=== PATIENT | female | born 1940 | race Caucasian/White ===

== ENCOUNTER → 2016-12-20 | Outpatient (CLI) | payer OTHER ==
[~2016-12-20] MED LIST: ACET-1256 PO; CHOL100010 PO; CHOL4POW11 PO; CLOP1TAB15 PO; ESCI10TA17 PO; GLUC10007 PO; GLYB5TAB8 PO; HYDR25TA4 PO; IMD/2 PO; INSU1.2I SC; LISI-729 PO; LISI5TAB PO; LOPE-5 PO; METF1000 PO; METF1TAB53 PO; MULT-506 PO; MULTTAB58 PO; NVLGI/PEN SC; NYST1POW7 TOP; NYST80OI TOP; NYSTOIN TOP; POLY335019 PO; POTA10CA28 PO; PSYL0.524 PO; SIME80CH PO; SIMV20TA2 PO; SIMV20TA5 PO; TRIA0.1C20 TOP; TYLOTC500 PO; [UNRECOGNIZED DRUG - CODE] PO
[2016-12-20 18:19] LABS: BLOOD UREA NITROGEN 9 mg/dl (7-18); BUN/CREATININE RATIO 9.6 (10-20); CALCIUM 9.2 mg/dl (8.5-10.1); CARBON DIOXIDE 26 mmol/L (21-32); CHLORIDE 101 mmol/L (98-107); CREATININE 0.89 mg/dl (0.60-1.20); GLUCOSE 378 mg/dl (70-99); POTASSIUM 3.5 mmol/L (3.5-5.1); SODIUM 138 mmol/L (136-145)
[2016-12-20 18:20] LABS: ALKALINE PHOSPHATASE 119 U/L (45-117); ALT/SGPT 48 U/L (12-78); AST/SGOT 42 U/L (15-37)
[2016-12-20 18:33] LABS: BETA-HYDROXYBUTYRATE 1.59 mg/dL (0.2-2.81)
[2016-12-21 06:14] LABS: ESTIMATED AVERAGE GLUCOSE 272 mg/dl; HA1C FLAG Normal (Normal)
== END | disposition home or self-care (01) ==
LOC: C.LABPVFM 13:24
PROVIDERS: ATTEND Nurse Practitioner
DX: R93.2 Abnormal findings on diagnostic imaging of liver and biliary tract (principal); E11.65 Type 2 diabetes mellitus with hyperglycemia

== ENCOUNTER → 2017-01-14 | Outpatient (CLI) | payer OTHER | END | disposition home or self-care (01) | LOC: C.PAPS 08:25 | PROVIDERS: ATTEND Obstetrics & Gynecology | DX: Z08 Encounter for follow-up examination after completed treatment for malignant neoplasm (principal) ==

== ENCOUNTER → 2017-01-28 | Day surgery (SDC) | payer OTHER ==
[2017-01-20 12:41] VITALS: Ht 148.6 cm; Wt 68.2 kg
[~2017-01-28] VITALS: Ht 148.6 cm; Wt 68.2 kg
[~2017-01-28] MED LIST changes: -GLUC10007 PO; -GLYB5TAB8 PO; -LISI-729 PO; -LOPE-5 PO; -METF1000 PO; -MULT-506 PO; -NYST1POW7 TOP; -NYSTOIN TOP; -PSYL0.524 PO; -SIMV20TA5 PO; -TRIA0.1C20 TOP; -TYLOTC500 PO
[2017-01-28 15:15] VITALS: BP 159/77; PULSE 65; TEMP 36.5; O2SAT 96
--- NOTE | 2017-02-06 12:56 | Procedure Note ---
Breath Hydrogen Test Interpretation Hydrogen Breath Test 10 gm lactulose time Hydrogen level CO2 0 5 3.2 20 7 3.6 40 20 3.7 60 21 4 80 43 3.5 100 98 3.7 120 78 3.3 140 61 3.3 160 121 3.5 Interpretation: Patient appears to have a positive hydrogen breath test. Of note there is a double peak which may represent colonic bharat as opposed to small bowel pathology.
== END | disposition home or self-care (01) ==
LOC: C.GI 11:46
PROVIDERS: ATTEND Internal Medicine
DX: R19.7 Diarrhea, unspecified (principal)

== ENCOUNTER → 2017-02-12 | Outpatient (CLI) | payer OTHER ==
[~2017-02-12] MED LIST changes: -CHOL4POW11 PO
--- NOTE | 2017-02-12 15:24 | DIAGNOSTIC IMAGING REPORT ---
LEFT FOOT 3 VIEWS CLINICAL HISTORY: Left foot pain. FINDINGS: 3 views of the left foot are obtained. No prior studies are available for comparison at the time of dictation. The skeletal structures are osteopenic. No fracture is seen. Mild arthritic change is seen at the first metatarsophalangeal joint. Moderate arthritic change is present at the second and third tarsometatarsal joints with significant bony sclerosis. There is no radiographic evidence of Lisfranc injury. Degenerative spurring is noted along the dorsal aspect of the tarsal bones. There are large dorsal and plantar calcaneal enthesophytes. Mild soft tissue swelling is noted along the dorsal aspect of the foot. IMPRESSION: 1. Soft tissue swelling with no radiographic evidence of fracture. 2. Arthritic change as above, greatest at the second and third tarsometatarsal joints. 3. Large heel spurs. Electronically signed by: Brody Aguilera M.D. 02/12/2017 3:22 PM Dictated Date/Time: 02/12/2017 3:20 PM
== END | disposition home or self-care (01) ==
LOC: C.RADPV 15:01
PROVIDERS: ATTEND Family Medicine
DX: M77.32 Calcaneal spur, left foot (principal); M79.89 Other specified soft tissue disorders

== ENCOUNTER → 2017-02-14 | Outpatient (CLI) | payer OTHER | END | disposition home or self-care (01) | LOC: C.LABPVFM 12:10 | PROVIDERS: ATTEND Nurse Practitioner | DX: E04.1 Nontoxic single thyroid nodule (principal) ==

== ENCOUNTER → 2017-02-19 | Outpatient (CLI) | payer OTHER ==
--- NOTE | 2017-02-19 11:52 | DIAGNOSTIC IMAGING REPORT ---
THYROID ULTRASOUND CLINICAL HISTORY: Solitary thyroid nodule. COMPARISON STUDY: CT July 06, 2017. TECHNIQUE: Sonography of the thyroid gland was performed. FINDINGS: The right thyroid lobe measures 3.1 x 2.1 x 2.4 cm and the left lobe measures 3.7 x 1 x 1 cm. There are several thyroid nodules, the largest of which is a 2.3 x 1.9 x 2 cm solid echogenic right lobe nodule. None of these nodules have suspicious imaging characteristics. The largest left lobe nodule measures 1.1 x 0.6 x 0.5 cm. IMPRESSION: Multinodular thyroid gland, including a 2.3 cm right lobe nodule. The sonographic appearance is nonspecific but none of these nodules have suspicious imaging characteristics. Electronically signed by: Tho Osullivan M.D. 02/19/2017 11:51 AM Dictated Date/Time: 02/19/2017 11:49 AM
== END | disposition home or self-care (01) ==
LOC: C.ULTR 11:18
PROVIDERS: ATTEND Nurse Practitioner
DX: E04.1 Nontoxic single thyroid nodule (principal)

== ENCOUNTER → 2017-03-03 | Outpatient (CLI) | payer OTHER ==
--- NOTE | 2017-03-03 12:24 | DIAGNOSTIC IMAGING REPORT ---
ULTRASOUND-GUIDED FINE-NEEDLE ASPIRATION OF A RIGHT THYROID NODULE HISTORY: Right thyroid nodule. COMPARISON: Thyroid ultrasound 02/19/2017. PROCEDURE: Written informed consent was obtained. The neck was prepped and draped in the usual sterile fashion. 1% lidocaine was used for local anesthesia. A total of 2 passes using a 25-gauge needle were made through dominant 2.3 cm right thyroid nodule under ultrasound guidance. Specimens were given to the on-site pathologist who determined adequate tissue for diagnosis. The patient tolerated the procedure well. There were no immediate locations. IMPRESSION: Successful ultrasound-guided fine-needle aspiration of a right thyroid nodule. Electronically signed by: Willain Hernandez M.D. 03/03/2017 12:23 PM Dictated Date/Time: 03/03/2017 12:23 PM
== END | disposition home or self-care (01) ==
LOC: C.ULTR 10:43
PROVIDERS: ATTEND Nurse Practitioner
DX: E04.1 Nontoxic single thyroid nodule (principal)

== ENCOUNTER → 2017-06-17 | Outpatient (CLI) | payer OTHER ==
[2017-06-17 17:45] LABS: BLOOD UREA NITROGEN 10 mg/dl (7-18); BUN/CREATININE RATIO 11.7 (10-20); CALCIUM 9.1 mg/dl (8.5-10.1); CARBON DIOXIDE 30 mmol/L (21-32); CHLORIDE 102 mmol/L (98-107); CREATININE 0.85 mg/dl (0.60-1.20); GLUCOSE 317 mg/dl (70-99); POTASSIUM 3.7 mmol/L (3.5-5.1); SODIUM 137 mmol/L (136-145)
[2017-06-17 17:52] LABS: CHOLESTEROL 136 mg/dl (0-200); CHOLESTEROL/HDL RATIO 3.7; HDL CHOLESTEROL 37 mg/dl; LDL CHOLESTEROL CALCULATED 52 mg/dl; TRIGLYCERIDES 237 mg/dl (0-150); VERY LOW DENSITY LIPOPROT CALC 47 mg/dl
[2017-06-18 07:54] LABS: ESTIMATED AVERAGE GLUCOSE 272 mg/dl; HA1C FLAG Normal (Normal)
== END | disposition home or self-care (01) ==
LOC: C.LABPVFM 15:13
PROVIDERS: ATTEND Nurse Practitioner
DX: E11.9 Type 2 diabetes mellitus without complications (principal)

== ENCOUNTER → 2017-07-10 | Outpatient (CLI) | payer OTHER ==
--- NOTE | 2017-07-10 11:14 | DIAGNOSTIC IMAGING REPORT ---
CT SCAN OF THE CHEST WITHOUT IV CONTRAST CLINICAL HISTORY: Follow-up pulmonary nodules. COMPARISON STUDY: Chest CT dated 07/06/2016. TECHNIQUE: CT scan of the thorax was performed from the thoracic inlet to the upper abdomen. Images are reviewed in the axial, sagittal, and coronal planes. IV contrast was not administered for this examination as per the referring clinician. A dose lowering technique was utilized adhering to the principles of ALARA. CT DOSE: 309.65 mGycm FINDINGS: Thyroid: Imaged portions of the thyroid gland are normal in size and attenuation. The right lobe is enlarged and heterogeneous. Subcentimeter nodules are suspected. Coarse calcifications are observed. Thoracic aorta: There is atherosclerotic calcification of the thoracic aorta, with is normal in caliber and demonstrates standard 3-vessel arch anatomy. Heart: The heart is top normal in size and without pericardial effusion. The coronary arteries are densely calcified. The pulmonary trunk is mildly dilated measuring 3.2 cm in diameter. This suggests pulmonary artery hypertension. Lungs and pleural spaces: Layering secretions are present in the trachea. No airspace consolidation or pleural effusion is identified. There are numerous (approximately 20) subcentimeter pulmonary nodules identified. The largest nodules are seen in the right lower lobe on image #181 measuring 8 mm, at the right apex measuring 7 mm seen on image #60, and in the left lower lobe on image #173 measuring 6 mm. These are unchanged in size and distribution from 07/06/2016. Mediastinum: There is no mediastinal lymphadenopathy. Mishel: Not well assessed without IV contrast. Axillae: There is no axillary lymphadenopathy. Upper abdomen: There is a tiny hiatal hernia. The liver is enlarged and steatotic. Scattered subcentimeter hepatic hypodensities likely represent cysts but are too small for definitive characterization. Skeletal structures: The skeletal structures are osteopenic. No lytic or blastic bony lesions are seen. Degenerative change is seen throughout the thoracic spine. Advanced arthritic change is noted in the shoulders. IMPRESSION: 1. There are numerous (approximately 20) subcentimeter pulmonary nodules identified which are unchanged in size and distribution from 07/06/2016. These remain pathologically indeterminant and continued follow-up is recommended to document 2 years of stability. See below. 2. There is no airspace consolidation or pleural effusion. 3. Hepatomegaly and hepatic steatosis. 4. Additional findings as above. Please refer to below summary of Fleischner criteria recommendations for follow-up of incidental CT nodules (Tomas Soares, Guidelines for management of small pulmonary nodules detected on CT scans: A statement from the Fleischner Society, Radiology 237: [phone].) SOLID NODULES Solitary nodule size: <6 mm * low risk patients: no follow-up needed * high risk patients: optional CT at 12 months Solitary nodule size: 6-8 mm * low risk patients: follow-up at 6-12 months, then consider further follow-up at 18-24 months * high risk patients: initial follow-up CT at 6-12 months and then at 18-24 months if no change Solitary nodule size: >8 mm * either low or high risk patients - consider follow-up CT at 3 months, and/or CT-PET, and/or biopsy Multiple nodules size: <6 mm * low risk patients: no routine follow-up * high risk patients: optional CT at 12 months Multiple nodules size: 6-8 mm * low risk patients: follow-up at 3-6 months, then consider further follow-up at 18-24 months * high risk patients: follow-up at 3-6 months, then at 18-24 months if no change Multiple nodules size: >8 mm * low risk patients: follow-up at 3-6 months, then consider further follow-up at 18-24 months * high risk patients: follow-up at 3-6 months, then at 18-24 months if no change Note: newly detected indeterminate nodule in persons 35 years of age or older. * low risk patients: minimal or absent history of smoking and/or other known risk factors * high risk patients: history of smoking or of other known risk factors (e.g. first degree relative with lung cancer, or exposure to asbestos, radon, uranium) * if a nodule up to 8 mm is partly solid or is ground glass further follow-up is required after 24 months to exclude possible slow growing adenocarcinoma (ROD) SUBSOLID NODULES Solitary pure ground-glass nodule * nodule size <6 mm - no CT follow-up required * nodule size >=6 mm - follow-up CT at 6-12 months, then every 2 years until 5 years Solitary part-solid nodule * nodule size <6 mm - no CT follow-up required * nodule size >=6 mm - follow-up CT at 3-6 months. If unchanged, and solid component remains <6 mm, then annual follow-up for 5 years Multiple subsolid nodules * nodule size <6 mm - follow-up CT at 3-6 months, consider further follow-up at 2 and 4 years if stable * nodule size >=6 mm - follow-up CT at 3-6 months, subsequent management based on the most suspicious nodule(s) Electronically signed by: Brody Aguilera M.D. 07/10/2017 11:13 AM Dictated Date/Time: 07/10/2017 11:03 AM
== END | disposition home or self-care (01) ==
LOC: C.CTS 10:40
PROVIDERS: ATTEND Internal Medicine Critical Care Medicine
DX: R91.8 Other nonspecific abnormal finding of lung field (principal); R16.0 Hepatomegaly, not elsewhere classified; K76.0 Fatty (change of) liver, not elsewhere classified

== ENCOUNTER → 2017-10-14 | Outpatient (CLI) | payer OTHER ==
[~2017-10-14] MED LIST changes: +ASPI1TAB83 PO; +CALC625T35 PO
[2017-10-14 13:27] LABS: HEMOGLOBIN 14.2 g/dL (12.0-16.0)
[2017-10-14 13:29] LABS: HEMOGLOBIN A1C 9.8 % (4.5-5.6)
[2017-10-14 13:51] LABS: BLOOD UREA NITROGEN 11 mg/dl (7-18); CREATININE 0.72 mg/dl (0.60-1.20); GLUCOSE 87 mg/dl (70-99)
[2017-10-14 13:52] LABS: ALBUMIN 4.1 gm/dl (3.4-5.0); ALT/SGPT 35 U/L (12-78); CALCIUM 9.5 mg/dl (8.5-10.1); CARBON DIOXIDE 31 mmol/L (21-32); CHOLESTEROL 176 mg/dl (0-200); POTASSIUM 3.6 mmol/L (3.5-5.1); SODIUM 138 mmol/L (136-145)
[2017-10-14 14:02] LABS: ALKALINE PHOSPHATASE 115 U/L (45-117); AST/SGOT 41 U/L (15-37); LDL CHOLESTEROL CALCULATED 103 mg/dl; TOTAL PROTEIN 8.1 gm/dl (6.4-8.2)
[2017-10-14 15:13] LABS: CREATININE RANDOM URINE 30.3 mg/dl
== END | disposition home or self-care (01) ==
LOC: C.LAB1850 12:26
PROVIDERS: ATTEND Nurse Practitioner Adult Health
DX: E78.5 Hyperlipidemia, unspecified (principal); E11.65 Type 2 diabetes mellitus with hyperglycemia; Z79.4 Long term (current) use of insulin; I10 Essential (primary) hypertension

== ENCOUNTER → 2018-02-20 | Outpatient (CLI) | payer OTHER ==
[~2018-02-20] MED LIST changes: -ASPI1TAB83 PO; -CALC625T35 PO
[2018-02-20 17:46] LABS: CREATININE RANDOM URINE 95.3 mg/dl
[2018-02-20 17:49] LABS: BLOOD UREA NITROGEN 13 mg/dl (7-18); CALCIUM 9.7 mg/dl (8.5-10.1); CARBON DIOXIDE 29 mmol/L (21-32); CREATININE 0.94 mg/dl (0.60-1.20); GLUCOSE 230 mg/dl (70-99); POTASSIUM 4.2 mmol/L (3.5-5.1); SODIUM 137 mmol/L (136-145)
[2018-02-21 07:55] LABS: HEMOGLOBIN A1C 8.9 % (4.5-5.6)
== END | disposition home or self-care (01) ==
LOC: C.LABPVFM 15:13
PROVIDERS: ATTEND Nurse Practitioner
DX: I10 Essential (primary) hypertension (principal); E78.5 Hyperlipidemia, unspecified; E11.65 Type 2 diabetes mellitus with hyperglycemia; R91.8 Other nonspecific abnormal finding of lung field

== ENCOUNTER → 2018-06-15 | Outpatient (CLI) | payer OTHER ==
[~2018-06-15] MED LIST changes: +ASPI1TAB83 PO; +CALC625T35 PO; -CLOP1TAB15 PO; -NYST80OI TOP; -POLY335019 PO; -SIMV20TA2 PO
--- NOTE | 2018-06-15 11:59 | DIAGNOSTIC IMAGING REPORT ---
(CHEST) THORAX WITHOUT CLINICAL HISTORY: MULTIPLE PULMONARY NODULES COMPARISON STUDY: April 09, 2017 CT DOSE: 289.24 mGy.cm TECHNIQUE: CT of the thorax was performed from the thoracic inlet to the lung bases. Images are reviewed in the axial, sagittal, and coronal planes. IV contrast was not administered for this examination. A dose lowering technique was utilized adhering to the principles of ALARA. FINDINGS: Thyroid: There is a multinodular thyroid goiter with asymmetric enlargement of the right lobe similar to the preceding study Thoracic aorta: The ascending thoracic aorta remains mildly dilated measuring 38 mm. Heart: There are coronary artery calcifications present. Lungs and pleural spaces: There are no pleural effusions. There is subtle groundglass attenuation the lungs with a mosaic pattern. There is lower lobe bronchial wall thickening. There are in excess of 10 bilateral pulmonary nodules. The largest on the right is located within the right lower lobe measuring 8 mm. This remains unchanged in size from the preceding study. The largest on the left is a 6 mm solid left lower lobe pulmonary nodule. Mediastinum: There is no mediastinal lymphadenopathy. Mishel: There is no evidence of pathologic hilar adenopathy given the limitations of a noncontrast study Axilla: There is no evidence of pathologic axillary lymphadenopathy Upper abdomen: Partially visualized upper abdominal viscera is within normal limits. Skeletal structures: There are no lytic or blastic osseous lesions. IMPRESSION: 1. Numerous (greater than 10), bilateral subcentimeter pulmonary nodules, unchanged in size from the prior study 2. Mild lower lobe bronchial wall thickening 3. Scattered groundglass pulmonary opacities, a finding likely secondary to either a suboptimal inspiration or airway disease. 4. Multinodular thyroid goiter 5. Mild dilatation of the ascending thoracic aorta which measures 38 mm Electronically signed by: Nahid Grady M.D. 06/15/2018 11:58 AM Dictated Date/Time: 06/15/2018 11:50 AM
== END | disposition home or self-care (01) ==
LOC: C.CTS 11:33
PROVIDERS: ATTEND Internal Medicine Critical Care Medicine
DX: R91.8 Other nonspecific abnormal finding of lung field (principal); E04.2 Nontoxic multinodular goiter

== ENCOUNTER 2021-06-02 15:51 | Inpatient (IN) ==
[2021-06-02] MEDS ORDERED: SODIUM CHLORIDE 0.9% 1000ML 1,000 ML IV ONE (16:18)
[2021-06-02] MEDS ORDERED: ACETAMINOPHEN 1,000 MG/100 ML VIAL IV STA (16:22)
--- NOTE | 2021-06-02 16:28 | Emergency Department Note ---
Impression & Plan Fall from standing, Noncompliance with diet and medication regimen, Near syncope, Dehydration, Hypokalemia, Hypomagnesemia, Hyperglycemia, Weakness ED Provider Note NAME: JAMEY WHITEHEAD AGE: 81 SEX: F ARRIVES VIA: Ambulance INFORMANT: Patient, ED PROVIDER(S): Devonte Emanuel MD CHIEF COMPLAINT: Fall, dizziness. PLAN: Disposition: Admit MEDICAL DECISION MAKING: The patient is a pleasant 81-year-old woman with a past medical history of dementia, diabetes, hypertension, hyperlipidemia, noncompliance with diet and medication regimen, hoarding behavior who presents emergency department accompanied by daughter after she had a fall today in her home where she reports she is not sure how it happened but may be felt dizzy. It is unclear when this happened as the patient was found in her nightgown and may have fallen this morning and was not found until the afternoon by visiting family. The patient reports some mild pain in her tailbone but otherwise denies any complaints. She did have a fall in her yard a couple weeks ago and had some left knee pain but has been walking at her baseline since then. Otherwise she denies any recent fevers, chills, cough, congestion, GI or symptoms. She has had the 2 dose series COVID-19 vaccine over several months ago. Of note, the daughter adds that they have been attempting to encourage the patient to enter assisted living as they feel she would be safer but she has refused this and also refused home nursing care. On arrival the patient is in no acute distress, afebrile stable vital signs. She appears clinically dry. She has no focal neurologic deficits. She has mild discomfort in her sacrococcygeal area but no bony crepitus. Pelvis is stable. She has full range of motion passively in bilateral hips. However she is limited range of motion with right hip flexion where she needs to help her leg flex by lifting it up. She denies any pain associated with this. She has full range of motion of knees bilaterally. She does subjectively report pain in in the medial aspect of the left knee but has no discrete tenderness. There is no gross instability. EKG without overt acute ischemia. Chest x-ray negative for acute cardiopulmonary or traumatic process. WBC 12.9K nonspecific. H/H and platelets within normal limits. Glucose 329 however chemistry without metabolic acidosis. Potassium 2.8 and magnesium 1.7 with repletion initiated. Total bilirubin 3.4 however direct bilirubin only 0.5, nonspecific given the patient has no GI symptoms. LFTs are otherwise unremarkable. CPK marginally elevated. Troponin negative/undetectable. Lipase is not elevated. TSH within normal limits. UA without convincing evidence of infection. COVID-[address] of the head and C-spine negative for acute process. Plain films of the pelvis and right hip, left knee in addition to sacrum and coccyx negative for acute fracture dislocation. Upon reevaluation patient did feel somewhat improved after IV fluid hydration and electrolyte repletion. However she was still significantly weak from her baseline and was unsteady even to go to the bathroom. Thus, the patient and her daughter at the bedside were in agreement with plan for admission for further management as well as further discussion regarding home services and or placement. Case was discussed with HONORIO Nathan hospitalist, who will evaluate the patient for admission. Triage Nursing notes reviewed and agree them. Prior medical records reviewed Vital Signs: reviewed and remarkable for no significant abnormalities Differential diagnosis: Fracture, dislocation, contusion, intra-abdominal, pneumothorax, intrathoracic, intracranial, neurologic, compartment syndrome, rhabdomyolysis, as well as other pathologies. ER treatment provided: See below. Diagnostics interpreted by me: ECG: Normal sinus rhythm, 76 bpm, no ectopy, nonspecific T wave abnormality, no overt ST elevation or depression, QTC 456, QRS 76. Cardiac Monitoring: An order for continuous cardiac monitoring was placed and demonstrated normal sinus rhythm, 76 bpm, no ectopy. Laboratory studies: See below Imaging studies: See below Consultation(s): HONORIO Nathan hospitalist, who will evaluate the patient for admission. HPI: The patient is a pleasant 81-year-old woman with a past medical history of dementia, diabetes, hypertension, hyperlipidemia, noncompliance with diet and medication regimen, hoarding behavior who presents emergency department accompanied by daughter after she had a fall today in her home where she reports she is not sure how it happened but may be felt dizzy. It is unclear when this happened as the patient was found in her nightgown and may have fallen this morning and was not found until the afternoon by visiting family. The patient reports some mild pain in her tailbone but otherwise denies any complaints. She did have a fall in her yard a couple weeks ago and had some left knee pain but has been walking at her baseline since then. Otherwise she denies any recent fevers, chills, cough, congestion, GI or symptoms. She has had the 2 dose series COVID-19 vaccine over several months ago. Of note, the daughter adds that they have been attempting to encourage the patient to enter assisted living as they feel she would be safer but she has refused this and also refused home nursing care. ROS: See above HPI for pertinent positives & negatives. A total of 10 systems reviewed and were otherwise negative. PAST MEDICAL HISTORY:See Below PAST SURGICAL HISTORY:See Below FAMILY HISTORY:See Below SOCIAL HISTORY:See Below HOME MEDICATIONS:See Below ALLERGIES:See Below VITALS:See Below PHYSICAL EXAMINATION: GENERAL: Awake, alert, fatigued-appearing, in no distress HENT: Normocephalic, atraumatic. Oropharynx with dry mucous membranes and otherwise unremarkable. EYES: Normal conjunctiva. Sclera non-icteric. NECK: Supple. No nuchal rigidity. FROM. No JVD. RESPIRATORY: Clear to auscultation. CARDIAC: Regular rate, normal rhythm. Extremities warm and well perfused. Pulses equal. ABDOMEN: Soft, non-distended. No tenderness to palpation. No rebound or guarding. No masses. RECTAL: Deferred. MUSCULOSKELETAL: Chest examination reveals no tenderness. The back is symmetrical on inspection without obvious abnormality. There is no CVA tenderness to palpation. No joint edema. Mild discomfort in her sacrococcygeal area but no bony crepitus. Pelvis is stable. She has full range of motion passively in bilateral hips. However she is limited range of motion with right hip flexion where she needs to help her leg flex by lifting it up. She denies any pain associated with this. She has full range of motion of knees bilaterally. She does subjectively report pain in in the medial aspect of the left knee but has no discrete tenderness. There is no gross instability. LOWER EXTREMITIES: Calves are equal size bilaterally and non-tender. No edema. No discoloration. NEURO: Normal sensorium. No sensory or motor deficits noted. SKIN: No rash or jaundice noted. Devonte Emanuel MD Past Med/Surg History Medical History Diverticulosis DSAP (disseminated superficial actinic porokeratosis) Endometrial adenocarcinoma Fatigue Hearing difficulty History of actinic keratosis History of cellulitis 2nd toe History of lymphocytosis History of osteopenia History of postmenopausal bleeding History of solar lentigo Lung nodules Murmur Solitary thyroid nodule Tubular adenoma of colon Surgical History H/O colonoscopy History of hysterectomy with bilateral oophorectomy S/P appendectomy S/P dilation and curettage Status post repair of nerve carpal tunnel Family History Sister Anxiety Depression Mother Gallbladder disease Diabetes Aunt Diabetes Father Cardiac disorder Myocardial infarction Skin cancer Family/Other Stroke Grandmother (Maternal) Cardiac disorder Diabetes and maternal great grandmother Daughter Diabetes Denies family history of Ovarian cancer Prostate cancer Crohn's disease Breast cancer Colorectal cancer Ulcerative colitis Social History Smoking Status: Never smoker Second Hand Exposure: No; Hx Alcohol Use: No Hx Substance Use: No marital status: Single Current Living Situation: Alone current occupational status: retired Feels Safe at Home: Yes caffeine: Yes Dental Care, Regularly: Yes Physical Activity Frequency: 3-4 Times per Week Seatbelt Use: always Sunscreen Use: No Allergies Allergies Allergy/AdvReac Type Severity Reaction Status Date / Time bee venom protein (honey bee) Allergy Intermediate SWELLING Verified 06/02/21 16:31 codeine Allergy Intermediate HEADACHE Verified 06/02/21 16:31 Home Meds Home Medications Medication Instructions Recorded Confirmed cholecalciferol (vitamin D3) 25 1,000 units PO DAILY 05/01/19 06/02/21 mcg (1,000 unit) capsule diclofenac sodium 1 % topical gel 1 gm TOPICAL QID PRN #1 gm 05/01/19 06/02/21 lancets 30 gauge (OneTouch Delica #25 ea 05/01/19 01/25/21 Lancets) [id number] carb-vit K 1 tab PO DAILY 05/01/19 06/02/21 18 mg iron-400 mcg-500 mg tablet (One-A-Day Womens Formula) acetaminophen 500 mg capsule 500 mg PO BID PRN cap 06/07/19 06/02/21 blood-glucose meter (Easy Touch #1 ea 06/07/19 01/25/21 Glucose Monitor) glucosamine sulfate 2KCl 1,000 mg 1,000 mg PO BID PRN tab 06/07/19 06/02/21 tablet loperamide 2 mg tablet 4 mg PO DAILY tab 06/07/19 06/02/21 simethicone 80 mg chewable tablet 80 mg PO Q4H PRN tab 06/07/19 06/02/21 blood sugar diagnostic (OneTouch ea 01/25/21 Ultra Blue Test Strip) psyllium husk 0.4 gram capsule 0.4 g PO DAILY cap 01/25/21 06/02/21 Previous Rx's Medication Instructions Recorded insulin aspart U-100 100 unit/mL 5 unit .ROUTE .COMPLEX #15 ml 05/01/19 (3 mL) subcutaneous pen simvastatin 20 mg tablet 20 mg PO DAILY #30 tab 08/08/20 pen needle, diabetic 32 gauge x #100 ea 12/14/2010/23" (Novofine 32) escitalopram oxalate 10 mg tablet 10 mg PO DAILY #30 tab 01/11/21 hydrochlorothiazide 25 mg tablet See Rx Instructions .ROUTE 01/11/21 .COMPLEX #30 tab insulin glargine U-300 conc 300 See Rx Instructions SUBCUT DAILY 01/11/21 unit/mL (1.5 mL) subcutaneous pen #4.5 ml donepezil 10 mg tablet 10 mg PO HS #30 tab 02/08/21 lisinopril 10 mg tablet 10 mg PO DAILY #30 tab 02/13/21 potassium chloride 20 mEq 20 meq PO BID #60 tab 05/09/21 tablet,extended release(part/cryst) (Klor-Con M) Results & Data (ED) Vital Signs Vital Signs - 24 hr 06/02/21 15:56 06/02/21 16:00 06/02/21 16:30 Temperature 36.8 C Temperature Source Oral Pulse Rate 80 85 79 Pulse Rate from SpO2 Sensor 84 Respiratory Rate 18 21 21 Respiratory Depth Normal Blood Pressure 134/76 127/78 120/74 Blood Pressure Mean 95 94 89 Pulse Oximetry 98 97 Oxygen Delivery Method Room Air Room Air Room Air Sepsis Recent Fever Within 48 Hours No Sepsis New/Unexplained Change in Mental Status No Sepsis Action Taken by Nursing No Action Required 06/02/21 17:00 06/02/21 17:05 06/02/21 17:30 Temperature Temperature Source Pulse Rate 72 72 Pulse Rate from SpO2 Sensor Respiratory Rate 20 24 Respiratory Depth Blood Pressure 157/87 H 146/98 H Blood Pressure Mean 110 114 Pulse Oximetry Oxygen Delivery Method Room Air Room Air Room Air Sepsis Recent Fever Within 48 Hours Sepsis New/Unexplained Change in Mental Status Sepsis Action Taken by Nursing 06/02/21 18:00 06/02/21 18:55 06/02/21 19:00 Temperature Temperature Source Pulse Rate 69 81 79 Pulse Rate from SpO2 Sensor 81 80 Respiratory Rate 17 24 22 Respiratory Depth Blood Pressure 138/87 127/80 Blood Pressure Mean 104 95 Pulse Oximetry 96 96 Oxygen Delivery Method Room Air Room Air Room Air Sepsis Recent Fever Within 48 Hours Sepsis New/Unexplained Change in Mental Status Sepsis Action Taken by Nursing 06/02/21 19:30 06/02/21 20:00 06/02/21 20:31 Temperature Temperature Source Pulse Rate 66 68 72 Pulse Rate from SpO2 Sensor 72 Respiratory Rate 21 20 17 Respiratory Depth Blood Pressure 116/75 110/62 140/82 Blood Pressure Mean 88 78 101 Pulse Oximetry 96 Oxygen Delivery Method Room Air Room Air Room Air Sepsis Recent Fever Within 48 Hours Sepsis New/Unexplained Change in Mental Status Sepsis Action Taken by Nursing Laboratory Data Attestation: I reviewed the patient's lab results. Result diagrams: 06/02/21 16:33 06/02/21 16:33 Lab Results 06/02/21 06/02/21 06/02/21 Range/Units 16:33 16:33 16:50 WBC 12.96 H (4.8-10.8) K/uL RBC 4.48 (4.2-5.4) M/uL Hgb 14.3 (12.0-16.0) g/dL Hct 39.4 (37-47) % MCV 87.9 (80-100) fL MCH 31.9 (25-34) pg MCHC 36.3 H (32-36) g/dL RDW Std Deviation 42.7 (36.4-46.3) fL RDW Coeff of Abbie 13.2 (11.5-14.5) % Plt Count 210 (130-400) K/uL MPV 10.8 H (7.4-10.4) fL Immature Gran % (Auto) 0.3 % Neut % (Auto) 73.7 % Lymph % (Auto) 18.1 % [place] % (Auto) 7.6 % Eos % (Auto) 0.2 % Baso % (Auto) 0.1 % Neut # (Auto) 9.55 H (1.4-6.5) K/uL Lymph # (Auto) 2.35 (1.2-3.4) K/uL [place] # (Auto) 0.99 H (0.11-0.59) K/uL Eos # (Auto) 0.02 (0-0.5) K/uL Baso # (Auto) 0.01 (0-0.2) K/uL Immature Gran # (Auto) 0.04 H (0.00-0.02) K/uL Sodium 138 (136-145) mmol/L Potassium 2.8 L (3.5-5.1) mmol/L Chloride 101 (98-107) mmol/L Carbon Dioxide 30 (21-32) mmol/L Anion Gap 7.0 (3-11) BUN 16 (7-18) mg/dl Creatinine 0.84 (0.6-1.2) mg/dl Est Cr Clr Drug Dosing 36.7 ml/min Est GFR ( Amer) 75.5 ml/min Est GFR (Non-Af Amer) 65.2 ml/min BUN/Creatinine Ratio 19.0 (10-20) Glucose 329 H* (70-99) mg/dl Calcium 9.3 (8.5-10.1) mg/dl Phosphorus 3.0 (2.5-4.9) mg/dl Magnesium 1.7 L (1.8-2.4) mg/dl Total Bilirubin 3.4 H (0.2-1) mg/dl Direct Bilirubin 0.5 H (0-0.2) mg/dl AST 27 (15-37) U/L ALT 17 (12-78) U/L Alkaline Phosphatase 70 (45-117) U/L Total Creatine Kinase 199 H (26-192) U/L Troponin I < 0.015 (0-0.045) ng/ml Total Protein 6.7 (6.4-8.2) gm/dl Albumin 3.5 (3.4-5.0) gm/dl Globulin 3.2 (2.5-4.0) gm/dl Albumin/Globulin Ratio 1.1 (0.9-2) Lipase 65 L (73-393) U/L Beta-Hydroxybutyric Acd 14.35 H (0.2-2.81) mg/dl TSH 1.150 (0.300-4.500) uIu/ml Urine Color Urine Appearance (Clear) Urine pH (4.5-7.5) Ur Specific [place] (1.000-1.030) Urine Protein (Negative) Urine Glucose (UA) (Negative) Urine Ketones (Negative) Urine Blood (Negative) Urine Nitrite (Negative) Urine Bilirubin (Negative) Urine Urobilinogen (Negative) Ur Leukocyte Esterase (Negative) COVID-19 Eval Order Covid19 at [facility] SARS-CoV-2 (PCR) (Negative) 06/02/21 06/02/21 Range/Units 16:50 20:25 WBC (4.8-10.8) K/uL RBC (4.2-5.4) M/uL Hgb (12.0-16.0) g/dL Hct (37-47) % MCV (80-100) fL MCH (25-34) pg MCHC (32-36) g/dL RDW Std Deviation (36.4-46.3) fL RDW Coeff of Abbie (11.5-14.5) % Plt Count (130-400) K/uL MPV (7.4-10.4) fL Immature Gran % (Auto) % Neut % (Auto) % Lymph % (Auto) % [place] % (Auto) % Eos % (Auto) % Baso % (Auto) % Neut # (Auto) (1.4-6.5) K/uL Lymph # (Auto) (1.2-3.4) K/uL [place] # (Auto) (0.11-0.59) K/uL Eos # (Auto) (0-0.5) K/uL Baso # (Auto) (0-0.2) K/uL Immature Gran # (Auto) (0.00-0.02) K/uL Sodium (136-145) mmol/L Potassium (3.5-5.1) mmol/L Chloride (98-107) mmol/L Carbon Dioxide (21-32) mmol/L Anion Gap (3-11) BUN (7-18) mg/dl Creatinine (0.6-1.2) mg/dl Est Cr Clr Drug Dosing ml/min Est GFR ( Amer) ml/min Est GFR (Non-Af Amer) ml/min BUN/Creatinine Ratio (10-20) Glucose (70-99) mg/dl Calcium (8.5-10.1) mg/dl Phosphorus (2.5-4.9) mg/dl Magnesium (1.8-2.4) mg/dl Total Bilirubin (0.2-1) mg/dl Direct Bilirubin (0-0.2) mg/dl AST (15-37) U/L ALT (12-78) U/L Alkaline Phosphatase (45-117) U/L Total Creatine Kinase (26-192) U/L Troponin I (0-0.045) ng/ml Total Protein (6.4-8.2) gm/dl Albumin (3.4-5.0) gm/dl Globulin (2.5-4.0) gm/dl Albumin/Globulin Ratio (0.9-2) Lipase (73-393) U/L Beta-Hydroxybutyric Acd (0.2-2.81) mg/dl TSH (0.300-4.500) uIu/ml Urine Color [place] Urine Appearance Clear (Clear) Urine pH 5.0 (4.5-7.5) Ur Specific [place] 1.034 H (1.000-1.030) Urine Protein Negative (Negative) Urine Glucose (UA) 2+ H (Negative) Urine Ketones 2+ H (Negative) Urine Blood Negative (Negative) Urine Nitrite Negative (Negative) Urine Bilirubin 1+ H (Negative) Urine Urobilinogen Negative (Negative) Ur Leukocyte Esterase Negative (Negative) COVID-19 Eval Order SARS-CoV-2 (PCR) NEGATIVE (Negative) Administered Medications Discontinued Medications Sodium Chloride (Nss 1000ml) 1,000 mls @ 999 mls/hr IV .Q1H1M ONE Stop: 06/02/21 17:18 Last Infusion: 06/02/21 18:45 Dose: 0 mls/hr Documented by: [id number] Admin: 06/02/21 16:58 Dose: 999 mls/hr Documented by: [id number] Acetaminophen (Ofirmev) 1,000 mg in 100 mls @ 400 mls/hr IV NOW STA Stop: 06/02/21 16:36 Last Infusion: 06/02/21 18:44 Dose: 0 mls/hr Documented by: [id number] Admin: 06/02/21 17:30 Dose: 400 mls/hr Documented by: [id number] Magnesium Sulfate/Dextrose (Magnesium Sulfate / D5w) 1 gm in 100 mls @ 100 mls/hr IV NOW STA Stop: 06/02/21 18:13 Last Infusion: 06/02/21 20:41 Dose: 0 mls/hr Documented by: [id number] Admin: 06/02/21 19:20 Dose: 100 mls/hr Documented by: [id number] Potassium Chloride (K Martinez / Wtr) 10 meq in 100 mls @ 100 mls/hr IV Q1H ALFREDO Stop: 06/02/21 19:14 Last Infusion: 06/02/21 21:33 Dose: 0 mls/hr Documented by: [id number] Admin: 06/02/21 20:27 Dose: 100 mls/hr Documented by: [id number] Potassium Chloride (Potassium Chloride Crtab 20 Meq Tabcr) 40 meq PO NOW STA Stop: 06/02/21 17:15 Last Admin: 06/02/21 17:32 Dose: 40 meq Documented by: [id number] Imaging Data Radiologist's Impression: Cervical Spine CT 06/02/21 16:18 CT cervical spine wo con CT DOSE: 945.23 mGy.cm CLINICAL HISTORY: 81 years-old Female with pain fall. Acute head and neck injury status post fall COMPARISON: Head CT of same day, chest CT 06/28/2019. TECHNIQUE: Multiple axial CT images of the cervical spine were obtained without contrast. A dose lowering technique was utilized adhering to the principles of ALARA. FINDINGS: Demineralized appearance of the bones. Multilevel intervertebral disc space narrowing, moderate at C5-C6 and C6-C7. There is associated spondylitic spurring with small posterior disc osteophyte complex formations. Moderate to severe multilevel facet arthrosis. Multilevel neural foraminal narrowing. No acute fracture or subluxation. Thyroid goiter. Venous gas of the left neck is likely secondary to IV catheter. No pneumothorax. There are 2 solid nodule of the right lung apex measuring up to 4 mm with 3 mm left upper lobe nodule, unchanged from 2019. Polypoid mucosal thickening of the right sphenoid sinus. IMPRESSION: No acute fracture or subluxation. ACT 112: Negative or not required by law. The above report was generated using voice recognition software. It may contain grammatical, syntax or spelling errors. Electronically signed by: Lino Brar M.D. 06/02/2021 7:[address] 06/02/21 16:18 CT head/brain wo con CLINICAL HISTORY: 81 years-old Female with pain fall, syncope. Acute head injury status post fall with syncope TECHNIQUE: Multiple axial CT images of the head were obtained without contrast. A dose lowering technique was utilized adhering to the principles of ALARA. COMPARISON: CT cervical spine of same day, head CT 05/14/2019 FINDINGS: No acute intracranial hemorrhage, midline shift, intracranial mass, hydrocephalus, territorial ischemia or abnormal extra-axial collection. Age-re lated involutional changes. White matter hypodensities suggestive of chronic microvascular ischemic disease. Falx cerebri calcifications. The calvarium is intact. Mastoid air cells are clear. Severe mucoperiosteal thickening of the right maxillary sinus with area of large polypoid mucosal thickening within the right sphenoid sinus. 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 Unremarkable soft tissues and orbits. IMPRESSION: No acute intracranial abnormality or calvarial fracture. ACT 112: Negative or not required by law. The above report was generated using voice recognition software. It may contain grammatical, syntax or spelling errors. Electronically signed by: Lino Brar M.D. 06/02/2021 6:43 PM Hip/Pelvis X-Ray 06/02/21 16:18 XR sacrum coccyx min 2V, XR hip RT 2V w pelvis HISTORY: 81 years-old Female pain fall acute pelvic, right hip and sacral pain status post fall COMPARISON: None TECHNIQUE: 2 views of the sacrum and coccyx. AP view the pelvis with 2 views of the right hip FINDINGS: SACRUM/COCCYX: Moderate degeneration of the SI joints. Demineralized appearance of the bones. No acute fracture, subluxation or osseous erosion identified. Unremarkable soft tissues. PELVIS/RIGHT HIP: Demineralized appearance the bones. Mild osteoarthritis of the hips. No acute fracture, dislocation or avascular necrosis. Unremarkable soft tissues. IMPRESSION: No acute fracture identified. ACT 112: Negative or not required by law. The above report was generated using voice recognition software. It may contain grammatical, syntax or spelling errors. Electronically signed by: Lino Brar M.D. 06/02/2021 8:22 PM Knee X-Ray 06/02/21 16:18 XR knee LT 1 or 2V routine HISTORY: 81 years-old Female pain fall acute left knee pain status post fall COMPARISON: None TECHNIQUE: 2 views of the left knee FINDINGS: Small joint effusion with mild anterior soft tissue swelling. Demineralized appearance of the bones with mild tricompartmental osteoarthritis. No acute fracture or dislocation. IMPRESSION: No acute fracture. ACT 112: Negative or not required by law. The above report was generated using voice recognition software. It may contain grammatical, syntax or spelling errors. Electronically signed by: Lino Brar M.D. 06/02/2021 8:30 PM Sacrum and Coccyx X-Ray 06/02/21 16:18 XR sacrum coccyx min 2V, XR hip RT 2V w pelvis HISTORY: 81 years-old Female pain fall acute pelvic, right hip and sacral pain status post fall COMPARISON: None TECHNIQUE: 2 views of the sacrum and coccyx. AP view the pelvis with 2 views of the right hip FINDINGS: SACRUM/COCCYX: Moderate degeneration of the SI joints. Demineralized appearance of the bones. No acute fracture, subluxation or osseous erosion identified. Unremarkable soft tissues. PELVIS/RIGHT HIP: Demineralized appearance the bones. Mild osteoarthritis of the hips. No acute fracture, dislocation or avascular necrosis. Unremarkable soft tissues. IMPRESSION: No acute fracture identified. ACT 112: Negative or not required by law. The above report was generated using voice recognition software. It may contain grammatical, syntax or spelling errors. Electronically signed by: Lino Brar M.D. 06/02/2021 8:22 PM Chest X-Ray 06/02/21 16:20 XR chest 1V portable HISTORY: 81 years-old Female Chest Pain . Acute chest pain COMPARISON: Chest CT 06/28/2019 TECHNIQUE: Portable AP view of the chest FINDINGS: Cardiomediastinal and hilar silhouettes are within normal limits. No pneumothorax, pleural effusion, airspace consolidation or overt pulmonary edema. Question nodule versus summation density measuring 1.2 cm of the left upper lung. The previously described tiny nodules on comparison chest CT are not well visualized. Degenerative changes of the shoulders and spine IMPRESSION: 1. No acute process. 2. 1.2 cm nodular density of the left lung apex suggestive of a pulmonary nodule versus summation density. Correlation with a nonemergent chest CT recommended. ACT 112: Negative or not required by law. The above report was generated using voice recognition software. It may contain grammatical, syntax or spelling errors. Electronically signed by: Lino Brar M.D. 06/02/2021 8:58 PM Discharge Plan Visit Data Chief Complaint: Fall ED Provider: Devonte Emanuel Discharge Problem: Fall from standing, Noncompliance with diet and medication regimen, Near syncope, Dehydration, Hypokalemia, Hypomagnesemia, Hyperglycemia, Weakness Forms Stand Alone Forms: [facility] [employer] Prescriptions Prescriptions: No Action simvastatin 20 mg tablet 20 mg PO DAILY Qty: 30 RF: 5 (DME) pen needle, diabetic [Novofine 32] 32 gauge x 1/4" needle See Dose Instructions .ROUTE .MEDSUPPLY Qty: 100 RF: 10 escitalopram oxalate 10 mg tablet 10 mg PO DAILY Qty: 30 RF: 11 hydrochlorothiazide 25 mg tablet See Rx Instructions .ROUTE .COMPLEX Qty: 30 RF: 11 insulin glargine U-300 conc 300 unit/mL (1.5 mL) insulin pen See Rx Instructions subcut DAILY Qty: 4.5 RF: 5 lisinopril 10 mg tablet 10 mg PO DAILY Qty: 30 RF: 11 potassium chloride [Klor-Con M20] 20 mEq tablet,ER particles/crystals 20 meq PO BID Qty: 60 RF: 5 (DME) blood-glucose meter [Easy Touch Glucose Monitor] misc See Dose Instructions .ROUTE .MEDSUPPLY Qty: 1 RF: 0 (DME) OneTouch Ultra Blue Test Strip Strip See Rx Instructions .ROUTE .MEDSUPPLY RF: 0 cholecalciferol (vitamin D3) 1,000 unit capsule 1,000 units PO DAILY RF: 0 One-A-Day Womens Formula 18 mg iron-400 mcg-500 mg tablet 1 tab PO DAILY RF: 0 diclofenac sodium 1 % gel 1 gm topical QID PRN (Reason: hip pain) Qty: 1 RF: 0 (DME) lancets [OneTouch Delica Lancets] 30 gauge misc See Dose Instructions .ROUTE .MEDSUPPLY Qty: 25 RF: 0 insulin aspart U-100 100 unit/mL (3 mL) insulin pen 5 unit .ROUTE .COMPLEX Qty: 15 RF: 0 Hold Instructions: not taking glucosamine sulfate 2KCl 1,000 mg tablet 1,000 mg PO BID PRN (Reason: NEEDED) RF: 0 loperamide 2 mg tablet 4 mg PO DAILY RF: 0 acetaminophen 500 mg capsule 500 mg PO BID PRN (Reason: fever or pain) RF: 0 simethicone 80 mg tablet,chewable 80 mg PO Q4H PRN (Reason: abdominal distention) RF: 0 psyllium husk 0.4 gram capsule 0.4 g PO DAILY RF: 0 donepezil 10 mg tablet 10 mg PO HS Qty: 30 RF: 5 Referrals Referrals: Mayelin Doran CRNP [Primary Care Provider] - Discharge Problem: Fall from standing Qualifiers: Encounter type: initial encounter Qualified Code(s): W19.XXXA - Unspecified fall, initial encounter
[2021-06-02 16:41] LABS: Basophils # (auto) 0.01 K/uL (0-0.2); Basophils % (auto) 0.1 %; Eosinophils # (auto) 0.02 K/uL (0-0.5); Eosinophils % (auto) 0.2 %; Hematocrit (blood only) 39.4 % (37-47); Hemoglobin 14.3 g/dL (12.0-16.0); Immature Granulocytes # (auto) 0.04 K/uL (0.00-0.02); Immature Granulocytes % (auto) 0.3 %; Lymphocytes # (auto) 2.35 K/uL (1.2-3.4); Lymphocytes % (auto) 18.1 %; Mean Corpuscular Hemoglobin 31.9 pg (25-34); Mean Corpuscular Hgb Conc 36.3 g/dL (32-36); Mean Corpuscular Volume 87.9 fL (80-100); Mean Platelet Volume 10.8 fL (7.4-10.4); Monocytes # (auto) 0.99 K/uL (0.11-0.59); Monocytes % (auto) 7.6 %; Neutrophils # (auto) 9.55 K/uL (1.4-6.5); Neutrophils % (auto) 73.7 %; Platelet Count 210 K/uL (130-400); RDW Coefficient of Variation 13.2 % (11.5-14.5); RDW Standard Deviation 42.7 fL (36.4-46.3); Red Blood Count 4.48 M/uL (4.2-5.4); White Blood Count 12.96 K/uL (4.8-10.8)
[2021-06-02 17:04] LABS: Alanine Aminotransferase 17 U/L (12-78); Albumin Level 3.5 gm/dl (3.4-5.0); Aspartate Aminotransferase 27 U/L (15-37); Bilirubin Direct 0.5 mg/dl (0-0.2); Bilirubin,Total 3.4 mg/dl (0.2-1); Blood Urea Nitrogen 16 mg/dl (7-18); Calcium 9.3 mg/dl (8.5-10.1); Carbon Dioxide 30 mmol/L (21-32); Chloride 101 mmol/L (98-107); Creatinine Clr Calc Pharmacy 36.7 ml/min; Est GFR (African American) 75.5 ml/min; Est GFR (Non-African American) 65.2 ml/min; Glucose 329 mg/dl (70-99); Magnesium 1.7 mg/dl (1.8-2.4); Potassium 2.8 mmol/L (3.5-5.1); Sodium 138 mmol/L (136-145)
[2021-06-02 17:09] LABS: Albumin Globulin Ratio 1.1 (0.9-2); Alkaline Phosphatase 70 U/L (45-117); Globulin 3.2 gm/dl (2.5-4.0); Total Protein 6.7 gm/dl (6.4-8.2); Troponin I < 0.015 ng/ml (0-0.045)
[2021-06-02] MEDS ORDERED: POTASSIUM CHLORIDE CRTAB 20 MEQ TABCR PO STA (17:14)
[2021-06-02] MEDS ORDERED: MAGNESIUM SULFATE / D5W 1 GM/100 ML BAG IV STA ×2 (17:14→21:20)
[2021-06-02 17:15] LABS: Beta-Hydroxybutyrate 14.35 mg/dl (0.2-2.81)
[2021-06-02 17:52] LABS: Creatine Kinase 199 U/L (26-192)
--- NOTE | 2021-06-02 18:44 | CT Scan Report ---
CT head/brain wo con CLINICAL HISTORY: 81 years-old Female with pain fall, syncope. Acute head injury status post fall wi th syncope TECHNIQUE: Multiple axial CT images of the head were obtained without contrast. A dose lowering tech nique was utilized adhering to the principles of ALARA. COMPARISON: CT cervical spine of same day, head CT 05/14/2019 FINDINGS: No acute intracranial hemorrhage, midline shift, intracranial mass, hydrocephalus, territorial ischem ia or abnormal extra-axial collection. Age-related involutional changes. White matter hypodensities s uggestive of chronic microvascular ischemic disease. Falx cerebri calcifications. The calvarium is intact. Mastoid air cells are clear. Severe mucoperiosteal thickening of the right maxillary sinus with area of large polypoid mucosal thickening within the right sphenoid sinus. 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 Unremarkable soft tissues and orbits. IMPRESSION: No acute intracranial abnormality or calvarial fracture. ACT 112: Negative or not required by law. The above report was generated using voice recognition software. It may contain grammatical, syntax o r spelling errors. Electronically signed by: Lino Brar M.D. 06/02/2021 6:43 PM
--- NOTE | 2021-06-02 19:14 | CT Scan Report ---
CT cervical spine wo con CT DOSE: 945.23 mGy.cm CLINICAL HISTORY: 81 years-old Female with pain fall. Acute head and neck injury status post fall COMPARISON: Head CT of same day, chest CT 06/28/2019. TECHNIQUE: Multiple axial CT images of the cervical spine were obtained without contrast. A dose low ering technique was utilized adhering to the principles of ALARA. FINDINGS: Demineralized appearance of the bones. Multilevel intervertebral disc space narrowing, mode rate at C5-C6 and C6-C7. There is associated spondylitic spurring with small posterior disc osteophyt e complex formations. Moderate to severe multilevel facet arthrosis. Multilevel neural foraminal narr owing. No acute fracture or subluxation. Thyroid goiter. Venous gas of the left neck is likely secondary to IV catheter. No pneumothorax. Ther e are 2 solid nodule of the right lung apex measuring up to 4 mm with 3 mm left upper lobe nodule, un changed from 2019. Polypoid mucosal thickening of the right sphenoid sinus. IMPRESSION: No acute fracture or subluxation. ACT 112: Negative or not required by law. The above report was generated using voice recognition software. It may contain grammatical, syntax o r spelling errors. Electronically signed by: Lino Brar M.D. 06/02/2021 7:13 PM
[2021-06-02 19:43] LABS: Lipase 65 U/L (73-393)
--- NOTE | 2021-06-02 20:23 | XRay Report ---
XR sacrum coccyx min 2V, XR hip RT 2V w pelvis HISTORY: 81 years-old Female pain fall acute pelvic, right hip and sacral pain status post fall COMPARISON: None TECHNIQUE: 2 views of the sacrum and coccyx. AP view the pelvis with 2 views of the right hip FINDINGS: SACRUM/COCCYX: Moderate degeneration of the SI joints. Demineralized appearance of the bones. No acute fracture, sub luxation or osseous erosion identified. Unremarkable soft tissues. PELVIS/RIGHT HIP: Demineralized appearance the bones. Mild osteoarthritis of the hips. No acute fracture, dislocation o r avascular necrosis. Unremarkable soft tissues. IMPRESSION: No acute fracture identified. ACT 112: Negative or not required by law. The above report was generated using voice recognition software. It may contain grammatical, syntax o r spelling errors. Electronically signed by: Lino Brar M.D. 06/02/2021 8:22 PM
[2021-06-02] MEDS: POTASSIUM CHLORIDE / WTR 10 MEQ/100 ML PLCT IV SCH ×2 (20:27→22:18)
--- NOTE | 2021-06-02 20:32 | XRay Report ---
XR knee LT 1 or 2V routine HISTORY: 81 years-old Female pain fall acute left knee pain status post fall COMPARISON: None TECHNIQUE: 2 views of the left knee FINDINGS: Small joint effusion with mild anterior soft tissue swelling. Demineralized appearance of the bones w ith mild tricompartmental osteoarthritis. No acute fracture or dislocation. IMPRESSION: No acute fracture. ACT 112: Negative or not required by law. The above report was generated using voice recognition software. It may contain grammatical, syntax o r spelling errors. Electronically signed by: Lino Brar M.D. 06/02/2021 8:30 PM
--- NOTE | 2021-06-02 20:59 | XRay Report ---
XR chest 1V portable HISTORY: 81 years-old Female Chest Pain . Acute chest pain COMPARISON: Chest CT 06/28/2019 TECHNIQUE: Portable AP view of the chest FINDINGS: Cardiomediastinal and hilar silhouettes are within normal limits. No pneumothorax, pleural effusion, airspace consolidation or overt pulmonary edema. Question nodule versus summation density measuring 1 .2 cm of the left upper lung. The previously described tiny nodules on comparison chest CT are not we ll visualized. Degenerative changes of the shoulders and spine IMPRESSION: 1. No acute process. 2. 1.2 cm nodular density of the left lung apex suggestive of a pulmonary nodule versus summation den sity. Correlation with a nonemergent chest CT recommended. ACT 112: Negative or not required by law. The above report was generated using voice recognition software. It may contain grammatical, syntax o r spelling errors. Electronically signed by: Lino Brar M.D. 06/02/2021 8:58 PM
[2021-06-02 21:05] LABS: Appearance Urine Clear (Clear); Bilirubin Urine 1+ (Negative); Blood Urine Negative (Negative); Color Urine Orange; Glucose Urine UA 2+ (Negative); Ketones Urine 2+ (Negative); Leukocyte Esterase Urine Negative (Negative); Nitrite Urine Negative (Negative); Protein Urine Negative (Negative); Specific Gravity Urine 1.034 (1.000-1.030); Urobilinogen Urine Negative (Negative)
--- NOTE | 2021-06-02 21:26 | History & Physical Report ---
Date of Service June 02, 2021 Assessment & Plan (1) Fall from standing: Plan: Patient brought in for fall and unknown time on ground - no fractures on plain films, pain to knee with out decrease ROM - CK 199- redraw in morning - PT/OT consult placed - No focal neurological deficits and no vertiginous symptoms - Likely multitude of reasons for causing this- follow overnight on telemtry and replace electrolytes and intravascular volume (2) Dehydration: Plan: Related to #1 and medical non-compliance - Received 1 L of NSS in EMD - LR at 80 ml/hr overnight - Hold HCTZ- evaluate chronic need (3) Hypokalemia: Plan: Repleted in EMD with 40 PO and 10 IV - replete magnesium and then continue with 20MEQ PO BID (4) Hypomagnesemia: Plan: Replete with 3 gm total - should increase with dietary consumption (5) Hyperglycemia: Plan: Non complaince- HGB A1c previous 10 - Hyperglycemia with normal HC03- no need for agressive treatment - Lantus 40mg SQ BID - Aspart sliding scale- CF 20 with Ratio 1:10 - A1c in morning (6) Dementia: Plan: May need evaluation for her ability to care for herself and make decisions - daughter reports that she has POA for her - The patient is AOx2 but does appear to have very short term memory loss - She is open to rehab following this - Office of aging is involved as above- follow - applications engineering manager consult placed (7) Noncompliance with diet and medication regimen: Plan: Evident that this has been progressing over the past year - high risk of self injury/ with diabetic non-compliance in itself (8) Mild cognitive impairment: Plan: As above (9) Diabetes type 2, uncontrolled: Plan: As above (10) Hypertension: Plan: Even with non-compliance her BP appears well controlled goal would be ~130 - Consider need for HCTZ with her electrolytes and volume status in the setting of non-compliance to be re-curing issue (11) Hyperlipidemia: Plan: Continue statin (12) Knee contusion: Plan: Ice- rest- Pt/OT evaluation (13) Goiter: Plan: incidental finding on cervical CT scan of the neck - normal TSH- consider further evaluation with ultrasound (14) DJD (degenerative joint disease), cervical: Plan: C5-C7 no stenosis reported on CT of neck- ? relationship to dizziness. (15) Pulmonary nodule: Plan: Incidental finding on CT scan - 2 solid nodules of the right lung apex and left upper lobe - unchanged compared to 2019 History of Present Illness Primary Care Provider: NICOLETTE Javed 81 YOF with past medical history of: Dementia, DMII (on insulin), HTN, HLD, cognitive behavior changes, cognitive impairment, reported hoarding behavior, medical non-compliance. Patient comes brought to the [facility] by her daughter after a fall today where the pateint could not get back up. The patient reports that she has been feeling dizzy. She was found by her daughter who is unsure how long the patient was down on the ground for, but she was still in her nightgown when her daughter found her. Her CK on arrival to the [facility] was 199. The patient was found to have multiple electrolyte abnormalities and hyperglycemia. The patietn does endorse that she just forgets to take her medications because "she gets busy doing things" but she does remember to eat and drink fluids. The daughter reports that the patient has been followed by the office of aging and she has refused help or assistance from them. The office of aging was notified by the patient's PCP in April for multiple concerns over the patient's compliance and dementia, and safety in her home. Patient will be admitted for correction of her electrolyte abnormalities and glucose, PT/OT evaluation, and possible evaluation for rehab. The patient was open to the idea of rehab and assistance at admisison. Allergies Allergy/AdvReac Type Severity Reaction Status Date / Time bee venom protein (honey bee) Allergy Intermediate SWELLING Verified 06/02/21 16:31 codeine Allergy Intermediate HEADACHE Verified 06/02/21 16:31 Home Medications Medication Instructions Recorded Confirmed Type cholecalciferol (vitamin D3) 25 1,000 units PO DAILY 05/01/19 06/02/21 History mcg (1,000 unit) capsule diclofenac sodium 1 % topical gel 1 gm TOPICAL QID PRN #1 gm 05/01/19 06/02/21 History insulin aspart U-100 100 unit/mL 5 unit .ROUTE .COMPLEX #15 ml 05/01/19 06/02/21 Rx (3 mL) subcutaneous pen lancets 30 gauge ([facility] #25 ea 05/01/19 01/25/21 History Lancets) [id number]-Ca carb-vit K 1 tab PO DAILY 05/01/19 06/02/21 History 18 mg iron-400 mcg-500 mg tablet (One-A-Day Womens Formula) acetaminophen 500 mg capsule 500 mg PO BID PRN cap 06/07/19 06/02/21 History blood-glucose meter (Easy Touch #1 ea 06/07/19 01/25/21 History Glucose Monitor) glucosamine sulfate 2KCl 1,000 mg 1,000 mg PO BID PRN tab 06/07/19 06/02/21 History tablet loperamide 2 mg tablet 4 mg PO DAILY tab 06/07/19 06/02/21 History simethicone 80 mg chewable tablet 80 mg PO Q4H PRN tab 06/07/19 06/02/21 History simvastatin 20 mg tablet 20 mg PO DAILY #30 tab 08/08/20 06/02/21 Rx pen needle, diabetic 32 gauge x #100 ea 12/14/20 01/25/21 Rx 1/4" (Novofine 32) escitalopram oxalate 10 mg tablet 10 mg PO DAILY #30 tab 01/11/21 06/02/21 Rx hydrochlorothiazide 25 mg tablet See Rx Instructions .ROUTE 01/11/21 06/02/21 Rx .COMPLEX #30 tab insulin glargine U-300 conc 300 See Rx Instructions SUBCUT DAILY 01/11/21 06/02/21 Rx unit/mL (1.5 mL) subcutaneous pen #4.5 ml blood sugar diagnostic (OneTouch ea 01/25/21 History Ultra Blue Test Strip) psyllium husk 0.4 gram capsule 0.4 g PO DAILY cap 01/25/21 06/02/21 History donepezil 10 mg tablet 10 mg PO HS #30 tab 02/08/21 06/02/21 Rx lisinopril 10 mg tablet 10 mg PO DAILY #30 tab 02/13/21 06/02/21 Rx potassium chloride 20 mEq 20 meq PO BID #60 tab 05/09/21 06/02/21 Rx tablet,extended release(part/cryst) (Klor-Con M) Past Med/Surg History Medical History (Updated 06/02/21 @ 22:11 by NICOLETTE Guadalupe) Diverticulosis DSAP (disseminated superficial actinic porokeratosis) Endometrial adenocarcinoma Fatigue Hearing difficulty History of actinic keratosis History of cellulitis 2nd toe History of lymphocytosis History of osteopenia History of postmenopausal bleeding History of solar lentigo Lung nodules Murmur Solitary thyroid nodule Tubular adenoma of colon Surgical History H/O colonoscopy History of hysterectomy with bilateral oophorectomy S/P appendectomy S/P dilation and curettage Status post repair of nerve carpal tunnel Family History Sister Anxiety Depression Mother Gallbladder disease Diabetes Aunt Diabetes Father Cardiac disorder Myocardial infarction Skin cancer Family/Other Stroke Grandmother (Maternal) Cardiac disorder Diabetes and maternal great grandmother Daughter Diabetes Denies family history of Ovarian cancer Prostate cancer Crohn's disease Breast cancer Colorectal cancer Ulcerative colitis Social History Smoking Status: Never smoker Second Hand Exposure: No; Hx Alcohol Use: No Hx Substance Use: No Preferred Language: Portuguese Communication Ability: Effective Event Manager Required: No Beliefs That Will Affect Care: None marital status: Single Current Living Situation: Alone current occupational status: retired Other Information That Helps Us Care for You: No Feels Safe at Home: Yes Safety Concerns: Feels Safe At This Time caffeine: Yes Dental Care, Regularly: Yes Physical Activity Frequency: 3-4 Times per Week Seatbelt Use: always Sunscreen Use: No Assistive Devices: Cane and Walker Review of Systems Review of Systems: REVIEW OF SYSTEMS: Constitutional: No fever, sweats or chills Eyes: No diplopia, no worsening or blurred vision ENT: normal hearing, no trouble swallowing Respiratory: No cough, sputum, dyspnea at rest or on exertion Cardiovascular: No chest pain, tightness or palpitations Abdomen: No pain, nausea, vomiting, diarrhea or constipation Musculoskeletal: No joint pain, calf pain, swelling Neurologic: (+) dizziness, weakness, No numbness/tingling, or balance problems Psychiatric: (+) short term memory loss, No anxiety or depression Skin: No rash or itch Physical Exam Physical Exam: PHYSICAL EXAM: General: awake, alert, no apparent distress Head: Normocephalic, atraumatic ENT: PERRL, EOMI, no pharyngeal exudate, mucous membranes dry Neuro: AAO x 2- person and place, speech clear and appropriate, strength intact bilaterally 5/5, sensation intact and equal all extremities and dermatomes, no pronator drift Chest: equal rise and fall of the chest, no accessory muscle use, no heaves or thrills, Clear to auscultation, on room air, Cardiac: Regular rate and rhythm, telemetry reviewed, skin warm dry, cap refill <3 seconds, peripheral pulses +2 no JVD, no murmur, no JVD, no edema GI: NABS x 4 quadrants, soft, nontender to palpation, no rebound, guarding or tenderness : Spontaneously voiding, no pain, no CVA tenderness, Extremities: right knee pain, no decreased ROM Normal inspection, no peripheral edema or erythema, calfs nontender to palpation Psych: normal effect, but does endorse forgetfulness and stubbornness Skin: scattered keratosis on sun exposed areas Results & Data Results & Data ([facility]) Vital Signs (Past 12 Hours) Vital Signs Temp Pulse Resp BP Pulse Ox 06/02/21 20:31 72 17 140/82 96 06/02/21 20:00 68 20 110/62 06/02/21 19:30 66 21 116/75 06/02/21 19:00 79 22 127/80 96 06/02/21 18:55 81 24 96 06/02/21 18:00 69 17 138/87 06/02/21 17:30 72 24 146/98 H 06/02/21 17:00 72 20 157/87 H 06/02/21 16:30 79 21 120/74 06/02/21 16:00 85 21 127/78 97 06/02/21 15:56 36.8 C 80 18 134/76 98 Laboratory Results Abnormal lab results 06/02/21 06/02/21 06/02/21 Range/Units 16:33 16:33 20:25 WBC 12.96 H (4.8-10.8) K/uL MCHC 36.3 H (32-36) g/dL MPV 10.8 H (7.4-10.4) fL Neut # (Auto) 9.55 H (1.4-6.5) K/uL [place] # (Auto) 0.99 H (0.11-0.59) K/uL Immature Gran # (Auto) 0.04 H (0.00-0.02) K/uL Potassium 2.8 L (3.5-5.1) mmol/L Glucose 329 H* (70-99) mg/dl Magnesium 1.7 L (1.8-2.4) mg/dl Total Bilirubin 3.4 H (0.2-1) mg/dl Direct Bilirubin 0.5 H (0-0.2) mg/dl Total Creatine Kinase 199 H (26-192) U/L Lipase 65 L (73-393) U/L Beta-Hydroxybutyric Acd 14.35 H (0.2-2.81) mg/dl Ur Specific [place] 1.034 H (1.000-1.030) Urine Glucose (UA) 2+ H (Negative) Urine Ketones 2+ H (Negative) Urine Bilirubin 1+ H (Negative) Diagnostic Findings Cervical Spine CT 06/02/21 16:18 CT cervical spine wo con CT DOSE: 945.23 mGy.cm CLINICAL HISTORY: 81 years-old Female with pain fall. Acute head and neck injury status post fall COMPARISON: Head CT of same day, chest CT 06/28/2019. TECHNIQUE: Multiple axial CT images of the cervical spine were obtained without contrast. A dose lowering technique was utilized adhering to the principles of ALARA. FINDINGS: Demineralized appearance of the bones. Multilevel intervertebral disc space narrowing, moderate at C5-C6 and C6-C7. There is associated spondylitic spurring with small posterior disc osteophyte complex formations. Moderate to severe multilevel facet arthrosis. Multilevel neural foraminal narrowing. No acute fracture or subluxation. Thyroid goiter. Venous gas of the left neck is likely secondary to IV catheter. No pneumothorax. There are 2 solid nodule of the right lung apex measuring up to 4 mm with 3 mm left upper lobe nodule, unchanged from 2019. Polypoid mucosal thickening of the right sphenoid sinus. IMPRESSION: No acute fracture or subluxation. ACT 112: Negative or not required by law. The above report was generated using voice recognition software. It may contain grammatical, syntax or spelling errors. Electronically signed by: Lino Brar M.D. 06/02/2021 7:[address] 06/02/21 16:18 CT head/brain wo con CLINICAL HISTORY: 81 years-old Female with pain fall, syncope. Acute head injury status post fall with syncope TECHNIQUE: Multiple axial CT images of the head were obtained without contrast. A dose lowering technique was utilized adhering to the principles of ALARA. COMPARISON: CT cervical spine of same day, head CT 05/14/2019 FINDINGS: No acute intracranial hemorrhage, midline shift, intracranial mass, hydrocephalus, territorial ischemia or abnormal extra-axial collection. Age- related involutional changes. White matter hypodensities suggestive of chronic microvascular ischemic disease. Falx cerebri calcifications. The calvarium is intact. Mastoid air cells are clear. Severe mucoperiosteal thickening of the right maxillary sinus with area of large polypoid mucosal thickening within the right sphenoid sinus. 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 Unremarkable soft tissues and orbits. IMPRESSION: No acute intracranial abnormality or calvarial fracture. ACT 112: Negative or not required by law. The above report was generated using voice recognition software. It may contain grammatical, syntax or spelling errors. Electronically signed by: Lino Brar M.D. 06/02/2021 6:43 PM Hip/Pelvis X-Ray 06/02/21 16:18 XR sacrum coccyx min 2V, XR hip RT 2V w pelvis HISTORY: 81 years-old Female pain fall acute pelvic, right hip and sacral pain status post fall COMPARISON: None TECHNIQUE: 2 views of the sacrum and coccyx. AP view the pelvis with 2 views of the right hip FINDINGS: SACRUM/COCCYX: Moderate degeneration of the SI joints. Demineralized appearance of the bones. No acute fracture, subluxation or osseous erosion identified. Unremarkable soft tissues. PELVIS/RIGHT HIP: Demineralized appearance the bones. Mild osteoarthritis of the hips. No acute fracture, dislocation or avascular necrosis. Unremarkable soft tissues. IMPRESSION: No acute fracture identified. ACT 112: Negative or not required by law. The above report was generated using voice recognition software. It may contain grammatical, syntax or spelling errors. Electronically signed by: Lino Brar M.D. 06/02/2021 8:22 PM Knee X-Ray 06/02/21 16:18 XR knee LT 1 or 2V routine HISTORY: 81 years-old Female pain fall acute left knee pain status post fall COMPARISON: None TECHNIQUE: 2 views of the left knee FINDINGS: Small joint effusion with mild anterior soft tissue swelling. Demineralized appearance of the bones with mild tricompartmental osteoarthritis. No acute fracture or dislocation. IMPRESSION: No acute fracture. ACT 112: Negative or not required by law. The above report was generated using voice recognition software. It may contain grammatical, syntax or spelling errors. Electronically signed by: Lino Brar M.D. 06/02/2021 8:30 PM Sacrum and Coccyx X-Ray 06/02/21 16:18 XR sacrum coccyx min 2V, XR hip RT 2V w pelvis HISTORY: 81 years-old Female pain fall acute pelvic, right hip and sacral pain status post fall COMPARISON: None TECHNIQUE: 2 views of the sacrum and coccyx. AP view the pelvis with 2 views of the right hip FINDINGS: SACRUM/COCCYX: Moderate degeneration of the SI joints. Demineralized appearance of the bones. No acute fracture, subluxation or osseous erosion identified. Unremarkable soft tissues. PELVIS/RIGHT HIP: Demineralized appearance the bones. Mild osteoarthritis of the hips. No acute fracture, dislocation or avascular necrosis. Unremarkable soft tissues. IMPRESSION: No acute fracture identified. ACT 112: Negative or not required by law. The above report was generated using voice recognition software. It may contain grammatical, syntax or spelling errors. Electronically signed by: Lino Brar M.D. 06/02/2021 8:22 PM Chest X-Ray 06/02/21 16:20 XR chest 1V portable HISTORY: 81 years-old Female Chest Pain . Acute chest pain COMPARISON: Chest CT 06/28/2019 TECHNIQUE: Portable AP view of the chest FINDINGS: Cardiomediastinal and hilar silhouettes are within normal limits. No pneumothorax, pleural effusion, airspace consolidation or overt pulmonary edema. Question nodule versus summation density measuring 1.2 cm of the left upper lung. The previously described tiny nodules on comparison chest CT are not well visualized. Degenerative changes of the shoulders and spine IMPRESSION: 1. No acute process. 2. 1.2 cm nodular density of the left lung apex suggestive of a pulmonary nodule versus summation density. Correlation with a nonemergent chest CT recommended. ACT 112: Negative or not required by law. The above report was generated using voice recognition software. It may contain grammatical, syntax or spelling errors. Electronically signed by: Lino Brar M.D. 06/02/2021 8:58 PM Medications Administered Discontinued Medications Sodium Chloride (Nss 1000ml) 1,000 mls @ 999 mls/hr IV .Q1H1M ONE Stop: 06/02/21 17:18 Last Infusion: 06/02/21 18:45 Dose: 0 mls/hr Documented by: [id number] Admin: 06/02/21 16:58 Dose: 999 mls/hr Documented by: [id number] Acetaminophen (Ofirmev) 1,000 mg in 100 mls @ 400 mls/hr IV NOW STA Stop: 06/02/21 16:36 Last Infusion: 06/02/21 18:44 Dose: 0 mls/hr Documented by: [id number] Admin: 06/02/21 17:30 Dose: 400 mls/hr Documented by: [id number] Magnesium Sulfate/Dextrose (Magnesium Sulfate / D5w) 1 gm in 100 mls @ 100 mls/hr IV NOW STA Stop: 06/02/21 18:13 Last Infusion: 06/02/21 20:41 Dose: 0 mls/hr Documented by: [id number] Admin: 06/02/21 19:20 Dose: 100 mls/hr Documented by: [id number] Potassium Chloride (K Martinez / Wtr) 10 meq in 100 mls @ 100 mls/hr IV Q1H ALFREDO Stop: 06/02/21 19:14 Last Infusion: 06/02/21 21:33 Dose: 0 mls/hr Documented by: [id number] Admin: 06/02/21 20:27 Dose: 100 mls/hr Documented by: [id number] Potassium Chloride (Potassium Chloride Crtab 20 Meq Tabcr) 40 meq PO NOW STA Stop: 06/02/21 17:15 Last Admin: 06/02/21 17:32 Dose: 40 meq Documented by: [id number] ECG Additional Comments: Normal sinus rhythm Cannot rule out Anterior infarct , age undetermined Abnormal ECG When compared with ECG of 24-JAN-2004 07:45, Minimal criteria for Anterior infarct are now Present Nonspecific T wave abnormality now evident in Anterolateral leads Code Status & VTE Plan Code Status CODE: FULL VTE: SCD's, Lovenox 40 mg q24 Supervising Physician Co-Signing Physician Notes Patient seen and examined, chart reviewed, case discussed with NICOLETTE Kramer and I agree with his assessment and plan as documented above. In brief, patient is an 81yo female presenting after a fall. Patient has not been taking her medications at home. On exam she is afebrile, HD stable, NAD Skin - intact, scattered AKs present on arms and legs HEENT - NC/AT< PERRL, MMM, Neck supple Heart - +S1/S2, regular, no m/r/g Lungs - CTA Abd - +BS, soft, NT/ND Exxt - no edema Labs and images reviewed. GR=776 Kiw=543 K=2.8 Mg=1.7 Assessment/Plan -Electrolyte Repletion -Repeat LFTs and CK in AM -PT/OT evaluation for placement needs -Remainder of plan as above PG Care Time/CCT Total # of Minutes Spent Total Time Spent with Patient: Total time spent is greater than 50% in coordination of care (as documented) at patient's floor/unit and/or counseling patient: Coding Level of Care Code 76731 Initial Inpt Care Lvl 3 Diagnoses Fall from standing W19.XXXA Encounter type: initial encounter Dehydration E86.0 Hypokalemia E87.6 Hypomagnesemia E83.42 Hyperglycemia R73.9 Dementia F03.90 Noncompliance with diet and medication regimen Z91.11; Z91.14 Mild cognitive impairment G31.84 Diabetes type 2, uncontrolled E11.65 Hypertension I10 Hyperlipidemia E78.5 Knee contusion S80.00XA Goiter E04.9 DJD (degenerative joint disease), cervical M47.812 Pulmonary nodule R91.1 (1) Fall from standing Encounter type: initial encounter Qualified Code(s): W19.XXXA - Unspecified fall, initial encounter
[2021-06-03] MEDS ORDERED: ONDANSETRON INJ 2 MG/ML 2 ML VIAL IV PRN (00:08)
[2021-06-03] MEDS ORDERED: DEXTROSE 50% 50 ML SYRINGE IV PRN (00:08)
[2021-06-03] MEDS ORDERED: CARBOHYDRATES FOR HYPOGLYCEMIA PO PRN (00:08)
[2021-06-03] MEDS ORDERED: GLUCAGON FOR INJ 1 MG VIAL SQ PRN (00:08)
[2021-06-03] MEDS ORDERED: GLUCOSE 10 TABS/TUBE PO PRN (00:08)
[2021-06-03] MEDS ORDERED: POLYETHYLENE (MIRALAX) 17 GM PACK PO PRN (00:08)
[2021-06-03] MEDS: LACTATED RINGER'S 1,000 ML IV SCH ×2 (00:55→15:20)
[2021-06-03] MEDS ORDERED: INSULIN GLARGINE SOLOSTAR 100 UNITS/ML 3 ML PEN SC SCH (01:00)
[2021-06-03] MEDS: INSULIN ASPART 100 UNITS/ML 3 ML PEN SC SCH ×5 (01:46→20:38)
[2021-06-03 06:43] LABS: Basophils # (auto) 0.01 K/uL (0-0.2); Basophils % (auto) 0.1 %; Eosinophils # (auto) 0.08 K/uL (0-0.5); Eosinophils % (auto) 0.9 %; Hematocrit (blood only) 36.4 % (37-47); Hemoglobin 12.9 g/dL (12.0-16.0); Immature Granulocytes # (auto) 0.01 K/uL (0.00-0.02); Immature Granulocytes % (auto) 0.1 %; Lymphocytes # (auto) 2.96 K/uL (1.2-3.4); Lymphocytes % (auto) 32.8 %; Mean Corpuscular Hemoglobin 31.4 pg (25-34); Mean Corpuscular Hgb Conc 35.4 g/dL (32-36); Mean Corpuscular Volume 88.6 fL (80-100); Mean Platelet Volume 11.1 fL (7.4-10.4); Monocytes # (auto) 0.68 K/uL (0.11-0.59); Monocytes % (auto) 7.5 %; Neutrophils # (auto) 5.28 K/uL (1.4-6.5); Neutrophils % (auto) 58.6 %; Platelet Count 175 K/uL (130-400); RDW Coefficient of Variation 13.3 % (11.5-14.5); RDW Standard Deviation 43.3 fL (36.4-46.3); Red Blood Count 4.11 M/uL (4.2-5.4); White Blood Count 9.02 K/uL (4.8-10.8)
--- NOTE | 2021-06-03 07:19 | Hospitalist Progress Note ---
Date of Service June 03, 2021 Assessment & Plan (1) Near syncope: Plan: 81yo female with dementia, IDDM2, HTN, and HLD presents after being found down. Fall Patient brought in for fall and unknown time on ground No fractures on plain films; knee pain without decrease in ROM No focal neurological deficits and no vertiginous symptoms Likely multitude of reasons for causing this- follow overnight on telemetry, replace electrolytes, replete intravascular volume Two serial negative troponins CK 199 on admission, redraw 137 (06/03) PT/OT consult placed Follow up echo results Dehydration Likely related to nonadherence patient-admitted medical dietary recommendations Received 1 L of NSS in EMD; continue LR at 80mL/hr Currently holding HCTZ Hypokalemia, hypomagnesemia Repleted K in ED with 40mEq PO and 10mEq IV; continue with KCl 20mEq bid Magnesium repleted Follow daily BMP and magnesium level DM2, hyperglycemia In the setting of historical med non-adherence; previous HbA1c 10% HbA1c 9.6% (06/02) Hyperglycemia with normal HCO3- no need for aggressive treatment Continue Lantus 40mg SQ BID Aspart sliding scale- CF 20 with ratio 1:10 Dementia Daughter reports that she is POA The patient is AOx2 but does appear to have very short term memory loss Patient is open to rehab following this Office of aging is involved manager sports consult placed Hypertension Despite med non-adherence her BP appears well controlled Reconsider need for HCTZ with her electrolytes and volume status in the setting of non-compliance to be reoccuring issue Hyperlipidemia Continue statin Knee contusion Rest, ice, elevation PT/OT evaluation Goiter Incidental finding on cervical CT scan of the neck Normal TSH- consider further evaluation with ultrasound DJD Degenerative disease of C5-C7 No stenosis reported on CT of neck- ? relationship to dizziness Pulmonary nodule Incidental finding on CT scan 2 solid nodules of the right lung apex and left upper lobe Unchanged compared to 2019 Follow up outpatient FEN: T2DM heart healthy diet, LR@80mL/hr Code status: full code DVT ppx: lovenox Held home meds: HCTZ Isolation: none Consults: none PT/OT: ordered Case management: involved Dispo: med/surg Admission and Anticipated Discharge Date Admission Date: June 02, 2021 Supervising Physician Co-Signing Physician Notes Attending attestation Pt seen and examined in concert with Dr. Lopez. In agreement with the documented findings as noted in the resident documentation with any exceptions or additions as noted here. Resting in chair, pleasantly conversant. Oriented to self, place, somewhat to time during conversation. On examination, S1/S2 nl RRR no MCG. CTAB. Abd NT/ND BS+ve Dementia - office of aging previously involved for FTT in present living situation with significant medication nonadherence and poor self-care re: POI Weakness - PT/OT consult - likely multifactorial. MSK evaluation without significant injury apparent. Per conversation, willing to participate in rehab services. Dehydration - tolerating IVF and POI. Likely d/c in AM if still tolerating POI well. DMII, uncontrolled - A1c 9.6% - basal bolus insulin with glycemic monitoring. Consider DM educator this week. HTN - BP well controlled on lisinopril 10mg presently. Holding home HCTZ. Else see resident documentation as noted. Subjective Patient seen and evaluated at bedside this morning. Patient feels well, only complaining of fatigue and a couple loose stools today. Patient denies CP, SOB, abdominal pain, nausea, vomiting, vision changes, and joint pain. Review of Systems Review of Systems: See HPI Physical Exam Physical Exam: Constitutional: well-appearing, no acute distress HEENT: NCAT, no conjunctival injection CV: regular rhythm, no murmur appreciated, extremities well-perfused, no LE edema Resp: CTABL, no wheezes/rales/rhonchi appreciated, no increased work of breathing GI: soft, nondistended, nontender, BS normoactive MSK: no gross deformities appreciated Skin: warm, dry, no rash appreciated Neuro: AOx4, no focal neurological deficits appreciated Results & Data Results & Data ([facility]) Vital Signs (Past 12 Hours) Vital Signs Temp Pulse Pulse Resp BP BP Pulse Ox 06/03/21 07:00 73 06/03/21 05:28 76 06/03/21 03:12 36.7 C 66 18 123/72 96 06/03/21 02:41 36.4 C L 71 18 151/80 H 98 06/02/21 23:34 69 18 147/86 H 98 06/02/21 22:31 68 20 145/73 H 98 06/02/21 22:30 72 23 146/78 H 06/02/21 22:20 69 20 06/02/21 22:10 61 17 06/02/21 22:01 82 26 H 06/02/21 21:30 67 18 153/86 H 97 06/02/21 21:00 68 17 146/86 H 98 06/02/21 20:31 72 17 140/82 96 06/02/21 20:00 68 20 110/62 06/02/21 19:30 66 21 116/75 Resident Activity Tracking Resident Involvement: Resident Care Provided Care Provided: Adult Hospital Medicine
[2021-06-03 07:23] LABS: Albumin Level 2.9 gm/dl (3.4-5.0); BUN Creatinine Ratio 20.9 (10-20); Bilirubin Direct 0.4 mg/dl (0-0.2); Bilirubin,Total 1.6 mg/dl (0.2-1); Calcium 8.4 mg/dl (8.5-10.1); Creatinine Clr Calc Pharmacy 60.5 ml/min; Est GFR (African American) 104.5 ml/min; Est GFR (Non-African American) 90.2 ml/min; Magnesium 2.2 mg/dl (1.8-2.4); Total Protein 5.6 gm/dl (6.4-8.2)
[2021-06-03] MEDS: SIMVASTATIN 20 MG TAB PO SCH (09:00)
[2021-06-03] MEDS: POTASSIUM CHLORIDE CRTAB 20 MEQ TABCR PO SCH ×2 (09:00→20:39)
[2021-06-03] MEDS: ENOXAPARIN INJ 30 MG/0.3 ML SYR SQ SCH (09:01)
[2021-06-03] MEDS: lisinopril 10 MG TAB PO SCH (09:01)
[2021-06-03] MEDS: ESCITALOPRAM OXALATE 10 MG TAB PO SCH (09:01)
[2021-06-03] MEDS: INSULIN GLARGINE SOLOSTAR 100 UNITS/ML 3 ML PEN SC SCH ×2 (09:02→20:40)
--- NOTE | 2021-06-03 09:40 | Electrocardiogram Report ---
Test Reason : Blood Pressure : / mmHG Vent. Rate : 076 BPM Atrial Rate : 076 BPM P-R Int : 164 ms QRS Dur : 076 ms QT Int : 406 ms P-R-T Axes : 008 -20 020 degrees QTc Int : 456 ms Normal sinus rhythm Low voltage QRS Poor R wave progression, consider anterior GA vs. lead placement vs. LVH Nonspecific T wave abnormality Abnormal ECG When compared with ECG of 24-JAN-2004 07:45, Nonspecific T wave abnormality now evident in Anterolateral leads Confirmed by Louis Loza ([id number]) on 06/03/2021 9:40:38 AM Referred By: REFERRED SELF Confirmed By:Louis Loza
[2021-06-03 16:32] LABS: Estimated Average Glucose 229 mg/dl; Hemoglobin A1C 9.6 % (4.5-5.6)
[2021-06-03 17:40] LABS: Cdiff Antigen Positive; Cdiff Toxin A+B Negative Cdiff Toxin (Negative)
[2021-06-03] MEDS: DONEPEZIL HCL 10 MG TAB PO SCH (20:38)
[2021-06-04] MEDS: LACTATED RINGER'S 1,000 ML IV SCH (04:08)
[2021-06-04 06:58] LABS: Basophils # (auto) 0.01 K/uL (0-0.2); Basophils % (auto) 0.1 %; Eosinophils # (auto) 0.06 K/uL (0-0.5); Eosinophils % (auto) 0.7 %; Hematocrit (blood only) 34.1 % (37-47); Hemoglobin 11.7 g/dL (12.0-16.0); Immature Granulocytes # (auto) 0.01 K/uL (0.00-0.02); Immature Granulocytes % (auto) 0.1 %; Lymphocytes # (auto) 2.58 K/uL (1.2-3.4); Lymphocytes % (auto) 29.4 %; Mean Corpuscular Hemoglobin 31.1 pg (25-34); Mean Corpuscular Hgb Conc 34.3 g/dL (32-36); Mean Corpuscular Volume 90.7 fL (80-100); Mean Platelet Volume 11.4 fL (7.4-10.4); Monocytes # (auto) 0.61 K/uL (0.11-0.59); Monocytes % (auto) 6.9 %; Neutrophils # (auto) 5.52 K/uL (1.4-6.5); Neutrophils % (auto) 62.8 %; Platelet Count 189 K/uL (130-400); RDW Coefficient of Variation 13.4 % (11.5-14.5); Red Blood Count 3.76 M/uL (4.2-5.4); White Blood Count 8.79 K/uL (4.8-10.8)
[2021-06-04] MEDS: GLUCOSE 40% GEL 15 GM TUBE PO PRN ×2 (07:25→16:55)
[2021-06-04 07:46] LABS: BUN Creatinine Ratio 14.7 (10-20); Calcium 8.6 mg/dl (8.5-10.1); Creatinine Clr Calc Pharmacy 60.4 ml/min; Est GFR (African American) 103.9 ml/min; Est GFR (Non-African American) 89.6 ml/min; Magnesium 2.1 mg/dl (1.8-2.4); Potassium 2.9 mmol/L (3.5-5.1)
[2021-06-04] MEDS ORDERED: POTASSIUM CHLORIDE 20 MEQ in LACTATED RINGER'S 1,000 ML IV SCH (08:30)
[2021-06-04] MEDS: POTASSIUM CHLORIDE CRTAB 20 MEQ TABCR PO SCH ×2 (08:50→20:30)
[2021-06-04] MEDS: ESCITALOPRAM OXALATE 10 MG TAB PO SCH (08:50)
[2021-06-04] MEDS: lisinopril 10 MG TAB PO SCH (08:50)
[2021-06-04] MEDS: SIMVASTATIN 20 MG TAB PO SCH (08:50)
[2021-06-04] MEDS: INSULIN GLARGINE SOLOSTAR 100 UNITS/ML 3 ML PEN SC SCH (08:51)
[2021-06-04] MEDS: INSULIN ASPART 100 UNITS/ML 3 ML PEN SC SCH ×4 (08:53→20:47)
[2021-06-04] MEDS: ENOXAPARIN INJ 30 MG/0.3 ML SYR SQ SCH (08:54)
--- NOTE | 2021-06-04 10:06 | Hospitalist Progress Note ---
Date of Service June 04, 2021 Assessment & Plan (1) Near syncope: Plan: 81yo female with dementia, IDDM2, HTN, and HLD presents after being found down. Fall Patient brought in for fall and unknown time on ground No fractures on plain films; knee pain without decrease in ROM No focal neurological deficits and no vertiginous symptoms Likely multitude of reasons for causing this- follow overnight on telemetry, replace electrolytes, replete intravascular volume Two serial negative troponins CK 199 on admission, redraw 137 (06/03) PT/OT consult--recommendation for SNF Will go to [facility] tomorrow Echo with normal LV function, EF 65-70%--not likely a cardiac source for her fall Dehydration Likely related to nonadherence patient-admitted medical dietary recommendations Received 1 L of NSS in EMD; continue LR at 80mL/hr Currently holding HCTZ Hypokalemia, hypomagnesemia Repleted K in ED with 40mEq PO and 10mEq IV; continue with KCl 20mEq bid Magnesium repleted Follow daily BMP and magnesium level DM2, hyperglycemia In the setting of historical med non-adherence; previous HbA1c 10% HbA1c 9.6% (06/02) Hyperglycemia with normal HCO3- no need for aggressive treatment Hold Lantus 40mg SQ BID as patient has had two episodes of hypoglycemia today Aspart sliding scale- CF 20 with ratio 1:10 Dementia Daughter reports that she is POA The patient is AOx2 but does appear to have very short term memory loss Office of aging is involved manager intermediate consult placed Hypertension Despite med non-adherence her BP appears well controlled Reconsider need for HCTZ with her electrolytes and volume status in the setting of non-compliance to be reoccurring issue Hyperlipidemia Continue statin Knee contusion Rest, ice, elevation PT/OT evaluation Goiter Incidental finding on cervical CT scan of the neck Normal TSH- consider further evaluation with ultrasound DJD Degenerative disease of C5-C7 No stenosis reported on CT of neck- ? relationship to dizziness Pulmonary nodule Incidental finding on CT scan 2 solid nodules of the right lung apex and left upper lobe Unchanged compared to 2019 Follow up outpatient FEN: T2DM heart healthy diet Code status: full code DVT ppx: lovenox Held home meds: HCTZ PT/OT: ordered Case management: involved Dispo: med/surg Admission and Anticipated Discharge Date Admission Date: June 02, 2021 Supervising Physician Co-Signing Physician Notes I personally examined the patient and verified all harris points of history and exam, discussed case, and agree with decision making with Dr Willis feeling ok. eating lunch - doing well. no abdominal pain/nausea vitals noted nad heent nc at mmm breathing unlabored no accessory muscles good effort skin no rashes no pallor or icterus Dementia - office of aging previously involved for FTT in present living situation with significant medication nonadherence and poor self-care re: POI Weakness - PT/OT consult - likely multifactorial. MSK evaluation without significant injury apparent. for snf/rehab Dehydration - improved. DMII, uncontrolled at baseline- A1c 9.6% - probably contributing to dehydration. continue insulins/titration HTN - BP reasonable lisinopril 10mg presently. Holding home HCTZ. otherwise as above Subjective Patient seen at bedside this morning. No acute events overnight. She reports feeling overall well, though she is somewhat stressed as she feels her future is uncertain. I explained to her and her daughter that inpatient rehabilitation is most likely short-term situation, and that she would probably be a good c andidate to return home if she has someone there with her to help. Review of Systems Review of Systems: per HPI Physical Exam Physical Exam: Constitutional: well-appearing, no acute distress HEENT: NCAT, no conjunctival injection CV: regular rhythm, no murmur appreciated, extremities well-perfused, no LE edema Resp: CTABL, no wheezes/rales/rhonchi appreciated, no increased work of breathing GI: soft, nondistended, nontender, BS normoactive MSK: no gross deformities appreciated Skin: warm, dry, no rash appreciated Neuro: AOx4, no focal neurological deficits appreciated Results & Data Results & Data ([facility]) Vital Signs (Past 12 Hours) Vital Signs Temp Pulse Pulse Pulse Resp BP BP 06/04/21 07:32 36.5 C 70 16 130/70 06/04/21 07:00 65 06/04/21 05:17 59 L 06/04/21 04:20 36.7 C 71 18 122/68 06/03/21 23:24 36.6 C 68 18 119/76 Pulse Ox 06/04/21 07:32 96 06/04/21 07:00 06/04/21 05:17 06/04/21 04:20 97 06/03/21 23:24 98 Resident Activity Tracking Resident Involvement: Resident Care Provided Care Provided: Adult [facility]
--- NOTE | 2021-06-04 13:23 | XCELERA ---
[id number]
--- NOTE | 2021-06-04 18:25 | Billing Data ---
Date of Service June 04, 2021 Coding Level of Care Code 54227 Subseq Hosp Care Lvl 2
[2021-06-04] MEDS: DONEPEZIL HCL 10 MG TAB PO SCH (20:31)
[2021-06-04 22:19] LABS: Appearance Urine Clear (Clear); Bilirubin Urine Negative (Negative); Blood Urine Negative (Negative); Color Urine Yellow; Glucose Urine UA Negative (Negative); Ketones Urine Negative (Negative); Leukocyte Esterase Urine Negative (Negative); Nitrite Urine Negative (Negative); Protein Urine Negative (Negative); Specific Gravity Urine 1.008 (1.000-1.030); Urobilinogen Urine Negative (Negative); pH Urine 8.5 (4.5-7.5)
[2021-06-05] MEDS: GLUCOSE 40% GEL 15 GM TUBE PO PRN (07:45)
[2021-06-05 07:47] LABS: Basophils # (auto) 0.01 K/uL (0-0.2); Basophils % (auto) 0.1 %; Eosinophils # (auto) 0.14 K/uL (0-0.5); Eosinophils % (auto) 1.7 %; Hematocrit (blood only) 34.2 % (37-47); Hemoglobin 11.9 g/dL (12.0-16.0); Immature Granulocytes # (auto) 0.03 K/uL (0.00-0.02); Immature Granulocytes % (auto) 0.4 %; Lymphocytes # (auto) 2.67 K/uL (1.2-3.4); Lymphocytes % (auto) 31.9 %; Mean Corpuscular Hemoglobin 31.9 pg (25-34); Mean Corpuscular Hgb Conc 34.8 g/dL (32-36); Mean Corpuscular Volume 91.7 fL (80-100); Monocytes # (auto) 0.68 K/uL (0.11-0.59); Monocytes % (auto) 8.1 %; Neutrophils # (auto) 4.83 K/uL (1.4-6.5); Neutrophils % (auto) 57.8 %; Platelet Count 186 K/uL (130-400); RDW Coefficient of Variation 13.4 % (11.5-14.5); RDW Standard Deviation 44.9 fL (36.4-46.3); Red Blood Count 3.73 M/uL (4.2-5.4); White Blood Count 8.36 K/uL (4.8-10.8)
[2021-06-05] MEDS: INSULIN ASPART 100 UNITS/ML 3 ML PEN SC SCH ×2 (08:13→14:45)
[2021-06-05] MEDS: POTASSIUM CHLORIDE CRTAB 20 MEQ TABCR PO SCH (08:14)
[2021-06-05 08:27] LABS: BUN Creatinine Ratio 17.9 (10-20); Creatinine Clr Calc Pharmacy 68.1 ml/min; Est GFR (African American) 108.1 ml/min; Est GFR (Non-African American) 93.3 ml/min; Magnesium 2.1 mg/dl (1.8-2.4)
[2021-06-05 08:29] LABS: Potassium 4.3 mmol/L (3.5-5.1)
[2021-06-05] MEDS: lisinopril 10 MG TAB PO SCH (09:04)
[2021-06-05] MEDS: ENOXAPARIN INJ 30 MG/0.3 ML SYR SQ SCH (09:04)
[2021-06-05] MEDS: SIMVASTATIN 20 MG TAB PO SCH (09:05)
[2021-06-05] MEDS: ESCITALOPRAM OXALATE 10 MG TAB PO SCH (09:05)
--- NOTE | 2021-06-05 10:09 | Discharge Summary ---
Date of Service June 05, 2021 Admission HPI Per Admitting Provider 81 YOF with past medical history of: Dementia, DMII (on insulin), HTN, HLD, cognitive behavior changes, cognitive impairment, reported hoarding behavior, medical non-compliance. Patient comes brought to the EMD by her daughter after a fall today where the pateint could not get back up. The patient reports that she has been feeling dizzy. She was found by her daughter who is unsure how long the patient was down on the ground for, but she was still in her nightgown when her daughter found her. Her CK on arrival to the EMD was 199. The patient was found to have multiple electrolyte abnormalities and hyperglycemia. The patietn does endorse that she just forgets to take her medications because "she gets busy doing things" but she does remember to eat and drink fluids. The daughter reports that the patient has been followed by the office of aging and she has refused help or assistance from them. The office of aging was notified by the patient's PCP in April for multiple concerns over the patient's compliance and dementia, and safety in her home. Patient will be admitted for correction of her electrolyte abnormalities and glucose, PT/OT evaluation, and possible evaluation for rehab. The patient was open to the idea of rehab and assistance at admisison. Discharge Data Allergies Allergy/AdvReac Type Severity Reaction Status Date / Time bee venom protein (honey bee) Allergy Intermediate SWELLING Verified 06/02/21 16:31 codeine Allergy Intermediate HEADACHE Verified 06/02/21 16:31 Consultations 06/02/21 20:55 ED Decision to Admit Stat 06/04/21 20:29 Consult Lung Nodule Program Routine Ordered Studies 06/02/21 16:18 CT cervical spine wo con Stat CT head/brain wo con Stat Diabetes Follow up Diabetes Follow-up Needed for HgbA1c >9% Hospital Course (1) Near syncope: 81yo female with dementia, IDDM2, HTN, and HLD presents after being found down. Fall Patient brought in for fall and unknown time on ground No fractures on plain films; knee pain without decrease in ROM No focal neurological deficits and no vertiginous symptoms Likely multitude of reasons for causing this- follow overnight on telemetry, replace electrolytes, replete intravascular volume Two serial negative troponins CK 199 on admission, redraw 137 (06/03) PT/OT consult--recommendation for SNF Will go to [facility] tomorrow Echo with normal LV function, EF 65-70%--not likely a cardiac source for her fall Dehydration Likely related to nonadherence patient-admitted medical dietary recommendations Received 1 L of NSS in EMD; continue LR at 80mL/hr Currently holding HCTZ Hypokalemia, hypomagnesemia Repleted K in ED with 40mEq PO and 10mEq IV; continue with KCl 20mEq bid Magnesium repleted Follow daily BMP and magnesium level DM2, hyperglycemia In the setting of historical med non-adherence; previous HbA1c 10% HbA1c 9.6% (06/02) Hyperglycemia with normal HCO3- no need for aggressive treatment Hold Lantus 40mg SQ BID as patient has had two episodes of hypoglycemia today Aspart sliding scale- CF 20 with ratio 1:10 Dementia Daughter reports that she is POA The patient is AOx2 but does appear to have very short term memory loss Office of aging is involved manager floral consult placed Hypertension Despite med non-adherence her BP appears well controlled Reconsider need for HCTZ with her electrolytes and volume status in the setting of non-compliance to be reoccurring issue Hyperlipidemia Continue statin Knee contusion Rest, ice, elevation PT/OT evaluation Goiter Incidental finding on cervical CT scan of the neck Normal TSH- consider further evaluation with ultrasound DJD Degenerative disease of C5-C7 No stenosis reported on CT of neck- ? relationship to dizziness Pulmonary nodule Incidental finding on CT scan 2 solid nodules of the right lung apex and left upper lobe Unchanged compared to 2019 Follow up outpatient FEN: T2DM heart healthy diet Code status: full code DVT ppx: lovenox Held home meds: HCTZ PT/OT: ordered Case management: involved Dispo: med/surg Discharge Plan Discharge Items Patient Disposition: Transfer [facility] Fac Reason For Visit: FALL, ELECTROLYTE DERRANGEMENT, NON-COMPLIANCE Discharge Diagnosis: Fall Activity: Per Instructions section Non-emergency contact: Primary Care Provider Call non-emergency contact if: you have any medication questions Follow-up/Referrals: Mayelin Doran CRNP [Primary Care Provider] - Diet: Carb Consistent or DM2 Addtl Attending Provider Instructions: Mrs. Stefani Parrish was admitted to [facility] after being found on the floor of her home for an indefinite period of time. She had no fractures and head imaging showed no acute issues. She did have several electrolyte derangements, all of which were repleted. She was also found to be dehydrted and was given IV hydration before being transitioned to regular oral consumption once improved. She also had an echocardiogram done showing normal cardiac function with no significant abnormalities. During her admission she was hemodynamically and cognitively stable in the setting of her baseline dementia. She was evaluated by PT/OT who recommended SNF for her with eventual plans to move in with her daughter. At discharge she will continue on her usual home medications without any changes. Pending Studies at Discharge: No Stand-Alone Forms: [facility] Skilled Items Patient informed of condition?: Yes DNR: No Discharge Level of Care: Skilled Communicable Disease: No Discharge Prognosis: Stable Lines: None Urinary Catheter: No Medications and DC Order Prescriptions: Continued simvastatin 20 mg tablet 20 mg PO DAILY Qty: 30 RF: 5 (DME) pen needle, diabetic [Novofine 32] 32 gauge x 1/4" needle See Dose Instructions .ROUTE .MEDSUPPLY Qty: 100 RF: 10 escitalopram oxalate 10 mg tablet 10 mg PO DAILY Qty: 30 RF: 11 hydrochlorothiazide 25 mg tablet See Rx Instructions .ROUTE .COMPLEX Qty: 30 RF: 11 insulin glargine U-300 conc 300 unit/mL (1.5 mL) insulin pen See Rx Instructions subcut DAILY Qty: 4.5 RF: 5 lisinopril 10 mg tablet 10 mg PO DAILY Qty: 30 RF: 11 potassium chloride [Klor-Con M20] 20 mEq tablet,ER particles/crystals 20 meq PO BID Qty: 60 RF: 5 (DME) blood-glucose meter [Easy Touch Glucose Monitor] misc See Dose Instructions .ROUTE .MEDSUPPLY Qty: 1 RF: 0 (DME) OneTouch Ultra Blue Test Strip Strip See Rx Instructions .ROUTE .MEDSUPPLY RF: 0 cholecalciferol (vitamin D3) 1,000 unit capsule 1,000 units PO DAILY RF: 0 One-A-Day Womens Formula 18 mg iron-400 mcg-500 mg tablet 1 tab PO DAILY RF: 0 diclofenac sodium 1 % gel 1 gm topical QID PRN (Reason: hip pain) Qty: 1 RF: 0 (DME) lancets [OneTouch Delica Lancets] 30 gauge misc See Dose Instructions .ROUTE .MEDSUPPLY Qty: 25 RF: 0 insulin aspart U-100 100 unit/mL (3 mL) insulin pen 5 unit .ROUTE .COMPLEX Qty: 15 RF: 0 Hold Instructions: not taking glucosamine sulfate 2KCl 1,000 mg tablet 1,000 mg PO BID PRN (Reason: NEEDED) RF: 0 loperamide 2 mg tablet 4 mg PO DAILY RF: 0 acetaminophen 500 mg capsule 500 mg PO BID PRN (Reason: fever or pain) RF: 0 simethicone 80 mg tablet,chewable 80 mg PO Q4H PRN (Reason: abdominal distention) RF: 0 psyllium husk 0.4 gram capsule 0.4 g PO DAILY RF: 0 donepezil 10 mg tablet 10 mg PO HS Qty: 30 RF: 5 Admission Data Admit Date/Time: 06/02/21 21:37 Attending Provider: Marcell Diggs Admit Provider: Juwan Kramer Primary Care Provider: Mayelin Doran Other Providers: Whitley Shook ; [facility] ; Ingrid Maier [facility]
--- NOTE | 2021-06-05 12:35 | Hospitalist Progress Note ---
Date of Service June 05, 2021 Assessment & Plan (1) Near syncope: Plan: 81yo female with dementia, IDDM2, HTN, and HLD presents after being found down. Fall Patient brought in for fall and unknown time on ground No fractures on plain films; knee pain without decrease in ROM No focal neurological deficits and no vertiginous symptoms Likely multitude of reasons for causing this- follow overnight on telemetry, replace electrolytes, replete intravascular volume Two serial negative troponins CK 199 on admission, redraw 137 (06/03) PT/OT consult--recommendation for SNF Will go to [facility] tomorrow Echo with normal LV function, EF 65-70%--not likely a cardiac source for her fall Dehydration Likely related to nonadherence patient-admitted medical dietary recommendations Received 1 L of NSS in EMD; continue LR at 80mL/hr Currently holding HCTZ Hypokalemia, hypomagnesemia Repleted K in ED with 40mEq PO and 10mEq IV; continue with KCl 20mEq bid Magnesium repleted Follow daily BMP and magnesium level DM2, hyperglycemia In the setting of historical med non-adherence; previous HbA1c 10% HbA1c 9.6% (06/02) Hyperglycemia with normal HCO3- no need for aggressive treatment Hold Lantus 40mg SQ BID as patient has had two episodes of hypoglycemia today Aspart sliding scale- CF 20 with ratio 1:10 Dementia Daughter reports that she is POA The patient is AOx2 but does appear to have very short term memory loss Office of aging is involved sales relationship manager consult placed Hypertension Despite med non-adherence her BP appears well controlled Reconsider need for HCTZ with her electrolytes and volume status in the setting of non-compliance to be reoccurring issue Hyperlipidemia Continue statin Knee contusion Rest, ice, elevation PT/OT evaluation Goiter Incidental finding on cervical CT scan of the neck Normal TSH- consider further evaluation with ultrasound DJD Degenerative disease of C5-C7 No stenosis reported on CT of neck- ? relationship to dizziness Pulmonary nodule Incidental finding on CT scan 2 solid nodules of the right lung apex and left upper lobe Unchanged compared to 2019 Follow up outpatient FEN: T2DM heart healthy diet Code status: full code DVT ppx: lovenox Held home meds: HCTZ PT/OT: ordered Case management: involved Dispo: med/surg Admission and Anticipated Discharge Date Admission Date: June 02, 2021 Results & Data Results & Data ([facility]) Vital Signs (Past 12 Hours) Vital Signs Temp Pulse Pulse Pulse Resp BP Pulse Ox 06/05/21 08:11 36.4 C L 67 16 128/69 98 06/05/21 07:00 66 06/05/21 03:00 36.8 C 82 18 162/81 H 98
--- NOTE | 2021-06-05 13:41 | Discharge Summary ---
Date of Service June 05, 2021 Principal Diagnosis Ambulatory dysfunction 2/2 dementia Discharge Exam Constitutional WD/WN, vitals as above Eyes PERRL, conjunctivae normal, anicteric sclerae Respiratory normal respiratory effort, lungs clear to auscultation Auscultation: no crackles, no rales, no rhonchi and no wheezes Cardiovascular Rate/Rhythm: regular rate Heart Sounds: no gallop, no murmur and no cardiac rub Vessels: normal peripheral pulses; no JVD Extremities: no edema Gastrointestinal (Abdomen) Inspection/Auscultation: normal bowel sounds; abdomen not distended Percussion/Palpation: abdomen soft; abdomen nontender and no guarding Skin no rashes, warm and dry Neurologic PERRL, EOMI, accommodation nl, no face palsy, no dysarthria moves all extremities; no focal motor deficits Discharge Data Allergies Allergy/AdvReac Type Severity Reaction Status Date / Time bee venom protein (honey bee) Allergy Intermediate SWELLING Verified 06/02/21 16:31 codeine Allergy Intermediate HEADACHE Verified 06/02/21 16:31 Consultations 06/02/21 20:55 ED Decision to Admit Stat 06/04/21 20:29 Consult Lung Nodule Program Routine Ordered Studies 06/02/21 16:18 CT cervical spine wo con Stat CT head/brain wo con Stat Diabetes Follow up Diabetes Follow-up Needed for HgbA1c >9% Hospital Course (1) Near syncope: 81yo female with dementia, IDDM2, HTN, and HLD presents after being found down. Fall: Patient brought in for fall and unknown time on ground No fractures on plain films; knee pain without decrease in ROM No focal neurological deficits and no vertiginous symptoms Likely multitude of reasons for causing this- follow overnight on telemetry, replace electrolytes, replete intravascular volume Two serial negative troponins CK 199 on admission, redraw 137 (06/03) PT/OT consult--recommendation for continued services Echo with normal LV function, EF 65-70%--not likely a cardiac source for her fall Arranged Home Health Services with [facility] Dehydration: Likely related to nonadherence patient-admitted medical dietary recommendations Received 1 L of NSS in EMD; continue LR at 80mL/hr Currently holding HCTZ Hypokalemia, hypomagnesemia: Repleted K in ED with 40mEq PO and 10mEq IV; continue with KCl 20mEq bid Magnesium repleted Follow daily BMP and magnesium level DM2, hyperglycemia: In the setting of historical med non-adherence; previous HbA1c 10% HbA1c 9.6% (06/02) Hyperglycemia with normal HCO3- no need for aggressive treatment Hold Lantus 40mg SQ BID as patient has had two episodes of hypoglycemia today Aspart sliding scale- Correction Factor 20 with ratio 1:10 Dementia: Daughter reports that she is POA The patient is AOx2 but does appear to have very short term memory loss Office of aging is involved: consideration of home health services [facility] Home Health services to start on 06/07 Hypertension: Despite med non-adherence her BP appears well controlled Reconsider need for HCTZ with her electrolytes and volume status in the setting of non-compliance to be reoccurring issue Hyperlipidemia: Continue statin Goiter: Incidental finding on cervical CT scan of the neck Normal TSH- consider further evaluation with ultrasound as outpatient DJD: Degenerative disease of C5-C7 No stenosis reported on CT of neck- ? relationship to dizziness Pulmonary nodule: Incidental finding on CT scan 2 solid nodules of the right lung apex and left upper lobe Unchanged compared to 2019 Follow up outpatient Total Time Total Time Spent Total Time Spent (In Minutes): <30 Discharge Plan Discharge Items Patient Disposition: Home - Home Health Services Reason For Visit: FALL, ELECTROLYTE DERRANGEMENT, NON-COMPLIANCE Discharge Diagnosis: Fall Activity: Per Instructions section Non-emergency contact: Primary Care Provider Call non-emergency contact if: you have any medication questions Follow-up/Referrals: aMyelin Doran CRNP [Primary Care Provider] - 06/15/21 10:30 am Diet: Carb Consistent or DM2 Addtl Attending Provider Instructions: Mrs. Stefani Parrish was admitted to [facility] after being found on the floor of her home for an indefinite period of time. She had no fractures and head imaging showed no acute issues. She did have several electrolyte derangements, all of which were repleted. She was also found to be dehydrted and was given IV hydration before being transitioned to regular oral consumption once improved. She also had an echocardiogram done showing normal cardiac function with no significant abnormalities. During her admission she was hemodynamically and cognitively stable in the setting of her baseline dementia. She was evaluated by PT/OT who recommended SNF for her with eventual plans to move in with her daughter. At discharge she will continue on her usual home medications without any changes. Pending Studies at Discharge: No Stand-Alone Forms: My [facility], Smoking Cessation Medications and DC Order Prescriptions: Continued simvastatin 20 mg tablet 20 mg PO DAILY Qty: 30 RF: 5 (DME) pen needle, diabetic [Novofine 32] 32 gauge x 1/4" needle See Dose Instructions .ROUTE .MEDSUPPLY Qty: 100 RF: 10 escitalopram oxalate 10 mg tablet 10 mg PO DAILY Qty: 30 RF: 11 hydrochlorothiazide 25 mg tablet See Rx Instructions .ROUTE .COMPLEX Qty: 30 RF: 11 insulin glargine U-300 conc 300 unit/mL (1.5 mL) insulin pen See Rx Instructions subcut DAILY Qty: 4.5 RF: 5 lisinopril 10 mg tablet 10 mg PO DAILY Qty: 30 RF: 11 potassium chloride [Klor-Con M20] 20 mEq tablet,ER particles/crystals 20 meq PO BID Qty: 60 RF: 5 (DME) blood-glucose meter [Easy Touch Glucose Monitor] misc See Dose Instructions .ROUTE .MEDSUPPLY Qty: 1 RF: 0 (DME) OneTouch Ultra Blue Test Strip Strip See Rx Instructions .ROUTE .MEDSUPPLY RF: 0 cholecalciferol (vitamin D3) 1,000 unit capsule 1,000 units PO DAILY RF: 0 One-A-Day Womens Formula 18 mg iron-400 mcg-500 mg tablet 1 tab PO DAILY RF: 0 diclofenac sodium 1 % gel 1 gm topical QID PRN (Reason: hip pain) Qty: 1 RF: 0 (DME) lancets [OneTouch Delica Lancets] 30 gauge misc See Dose Instructions .ROUTE .MEDSUPPLY Qty: 25 RF: 0 insulin aspart U-100 100 unit/mL (3 mL) insulin pen 5 unit .ROUTE .COMPLEX Qty: 15 RF: 0 Hold Instructions: not taking glucosamine sulfate 2KCl 1,000 mg tablet 1,000 mg PO BID PRN (Reason: NEEDED) RF: 0 loperamide 2 mg tablet 4 mg PO DAILY RF: 0 acetaminophen 500 mg capsule 500 mg PO BID PRN (Reason: fever or pain) RF: 0 simethicone 80 mg tablet,chewable 80 mg PO Q4H PRN (Reason: abdominal distention) RF: 0 psyllium husk 0.4 gram capsule 0.4 g PO DAILY RF: 0 donepezil 10 mg tablet 10 mg PO HS Qty: 30 RF: 5 Discharge Orders: Discharge Order (Routine); Ordered 06/05/21 Ordered By: Niko Rabago Admission Data Admit Date/Time: 06/02/21 21:37 Attending Provider: Marcell Diggs Admit Provider: Juwan Kramer Primary Care Provider: Mayelin Doran Other Providers: Whitley Shook ; [facility],Home Healthcare ; [facility],Health Other Interventions: Discharge Summary Assessment (RN) Last Done: 06/05/21 14:47 Supervising Physician Co-Signing Physician Notes I personally examined the patient and verified all harris points of history and exam, discussed case, and agree with decision making with Dr Rabago Overall eating okay. In the end was denied for skilled or rehab, or was not going to be covered. Resident physician discussed the case with family throughout the day, and the end set up for home health and was able to go home. vitals noted nad heent nc at mmm breathing unlabored no accessory muscles good effort skin no rashes no pallor or icterus Dementia -overall appears to be declining, it sounds like at this point family still wants to try to have her home, but in discussions with resident physician, it sounds like family is realistic about the eventual need for long-term care. At this point stable for home with home health and family. Weakness - PT/OT consult - likely multifactorial. MSK evaluation without significant injury apparent. Is a pleasant surprise, stable for home. Encourage p.o. fluid intake at home. Dehydration - improved. DMII, uncontrolled at baseline- A1c 9.6% - probably contributing to dehydration. Follow-up as outpatient HTN -Home meds, although if any dehydration were to happen again, would strongly consider permanent discontinuation of hydrochlorothiazide. otherwise as above Resident Activity Tracking Resident Involvement: Resident Care Provided Care Provided: Adult Hospital Medicine [facility] Attestation I certify that this patient is under my care and that I, or a physicians rehab assistant working with me, had a face to-face encounter that meets the [facility] [id number] encounter requirements with this patient. The encounter with the patient was in whole, or in part, for the following medical condition, which is the primary reason for home health care (list medical condition): syncope, hypomagnesium, hypokalemia I certify that, based on my findings, the following services are medically necessary home health services: My clinical findings support the need for the above services because: OT Assess ADL Status and Restore Function w ADLs PT Gait and Balance Training, Strengthening and Safety Further, I certify that my clinical findings support that this patient is homebound (i.e. absences from home require considerable and taxing effort and are for medical reasons or judaism services or infrequently or of short duration when for other reasons) because: Transportation Assistance/Unable to Leave Home Unassisted Certification for Home Health Services: Based on the above findings, I certify that this patient is confined to the home and needs intermittent care home care, physical therapy and/or speech therapy or continues to need occupational therapy. The patient is under my care, and I have initiated the establishment of the plan of care. This patient will be followed by a physician who will periodically review the plan of care.
--- NOTE | 2021-06-05 17:44 | Billing Data ---
Date of Service June 05, 2021 Coding Level of Care Code D/C DAY MANAGEMENT <30 MINS
== END 2021-06-05 15:30 | disposition home health service (06) | DRG 312 ==
LOC: ED 15:51 → SUATTDRO 21:37 → 2W 21:37

== ENCOUNTER 2021-06-13 14:35 | Inpatient (IN) ==
--- NOTE | 2021-06-13 15:17 | Emergency Department Note ---
Impression & Plan Hypoglycemia, Weakness ED Provider Note INFORMANT: Patient ED PROVIDER(S): Joseph Berry MD CHIEF COMPLAINT: Hypoglycemia PLAN: Disposition: Admitted Condition: Good Outpatient prescription management: none Referral: None MEDICAL DECISION MAKING: Patient presented to the emergency department with hypoglycemia. She responded well to the glucose treatment by EMS. She was nonfocal on examination. Head CT did not reveal any intracranial findings however she was found to have sinusitis. The patient white count was mildly elevated. She does not have any headache or neck pain at this time. The patient's chemistry panel LFTs and troponin were negative. TSH negative. Urinalysis did raise concerns for infection as well. The patient was hydrated. She was given a dose of IV Rocephin to cover both issues. X-ray question the fact that she may have a pneumothorax. With her prior falls the patient underwent CT imaging of the chest which did not reveal any acute findings. Chronic nodules noted. The patient will need further management in the hospital as she became hypoglycemic again. I did start her on a D10 infusion. She was given food and oral fluids. Consultation was made with Dr. Shook of the hospitalist service. Patient was evaluated for further management. Triage Nursing notes reviewed and agree them. Vital Signs: reviewed and remarkable for no significant abnormalities Differential diagnosis: Infection, dehydration, metabolic abnormality, hypo/hyperglycemia, electrolyte disturbance, anemia, hypoxia, cardiac sources, intracerebral event, toxicologic, neurologic, as well as other pathologies. Diagnostics interpreted by me: ECG: Rate: 72 Rhythm:Normal sinus [place]:Normal QRS:Normal. Inferior Q waves noted. ST segements:No elevation or depression Other:No PACs or PVCs. Poor R wave progression. Cardiac Monitoring:Cardiac monitoring ordered by me: The patient was placed on continuous cardiac monitoring and observed. It revealed a normal sinus rhythm at 76 beats per minute without ectopy or evidence of dysrhythmia. Head CT: A noncontrast CT scan of the head was performed and was negative for tumor, fracture, intracranial hemorrhage, or other acute pathology. CT scan of the chest reveals no acute findings no pneumothorax. Chronic nodules noted. Imaging studies: Chest x-ray. Findings: A chest x-ray was performed and revealed no large pneumothorax, effusion, infiltrate, pulmonary edema, free air under the diaphragm, or wide mediastinum. Radiology questioned possible pneumothorax versus skinfold. HPI: The patient is a 81 year old female who presents to the Emergency Room with complaints of hypoglycemia. This started over the last week and is significantly worse today. The patient also notes the following associated symptoms, confusion, disorientation. The patient has been given oral glucose relieving factors. Current pain is rated as 0/10. Pt denies LOC, headache, fevers, chills, diaphoresis, visual changes, neck pain, chest pain, breathing difficulties, nausea, vomiting, abdominal pain, back pain, melena, hematochezia, urinary symptoms, numbness, lymphadenopathy, rash, or other complaints. ROS: See above HPI for pertinent positives & negatives. A total of 10 systems reviewed and were otherwise negative. PAST MEDICAL HISTORY:See Below , DM PAST SURGICAL HISTORY:See Below, FAMILY HISTORY:See Below SOCIAL HISTORY:See Below, lives with daughter HOME MEDICATIONS:See Below ALLERGIES:See Below VITALS:See Below PHYSICAL EXAMINATION: GENERAL: Awake, tired-appearing, in no distress HENT: Normocephalic, atraumatic. Oropharynx unremarkable. EYES: Normal conjunctiva. Sclera non-icteric. NECK: Inspection normal. Non-tender. Supple. No nuchal rigidity. FROM. No masses. RESPIRATORY: Clear to auscultation. No wheezes. No rales. Normal respiratory effort. CARDIAC: Normal rate. Normal rhythm. No murmurs. No rubs. Extremities warm and well perfused. Pulses equal. No JVD. GI: Soft, non-distended. No tenderness to palpation. No rebound or guarding. No masses. RECTAL: Deferred. MUSCULOSKELETAL: Atraumatic. Chest examination reveals no tenderness. The back is symmetrical on inspection without obvious abnormality. There is no CVA tenderness to palpation. No joint edema. LOWER EXTREMITIES: Calves are equal size bilaterally and non-tender. No edema. No discoloration. NEURO: Normal sensorium. Generally weak, no sensory or motor deficits noted. SKIN: No rash or jaundice noted. Joseph Berry MD Past Med/Surg History Medical History (Updated 06/13/21 @ 15:17 by Joseph Berry MD) Dehydration Diverticulosis DSAP (disseminated superficial actinic porokeratosis) Endometrial adenocarcinoma Fall from standing Fatigue Hearing difficulty History of actinic keratosis History of cellulitis 2nd toe History of lymphocytosis History of osteopenia History of postmenopausal bleeding History of solar lentigo Hyperglycemia Hypokalemia Hypomagnesemia Lung nodules Murmur Near syncope Solitary thyroid nodule Tubular adenoma of colon Weakness Surgical History H/O colonoscopy History of hysterectomy with bilateral oophorectomy S/P appendectomy S/P dilation and curettage Status post repair of nerve carpal tunnel Family History Sister Anxiety Depression Mother Gallbladder disease Diabetes Aunt Diabetes Father Cardiac disorder Myocardial infarction Skin cancer Family/Other Stroke Grandmother (Maternal) Cardiac disorder Diabetes and maternal great grandmother Daughter Diabetes Denies family history of Ovarian cancer Prostate cancer Crohn's disease Breast cancer Colorectal cancer Ulcerative colitis Social History Smoking Status: Never smoker Second Hand Exposure: No; Hx Alcohol Use: No Hx Substance Use: No Preferred Language: Nigerien Communication Ability: Effective Migrant Leader Required: No Beliefs That Will Affect Care: None marital status: / Current Living Situation: Alone current occupational status: retired Feels Safe at Home: Yes caffeine: Yes Dental Care, Regularly: Yes Physical Activity Frequency: 3-4 Times per Week Seatbelt Use: always Sunscreen Use: No Assistive Devices: Denture - Upper, Glasses and Walker Allergies Allergies Allergy/AdvReac Type Severity Reaction Status Date / Time bee venom protein (honey bee) Allergy Intermediate SWELLING Verified 06/13/21 20:50 codeine Allergy Intermediate HEADACHE Verified 06/13/21 20:50 Home Meds Home Medications Medication Instructions Recorded Confirmed cholecalciferol (vitamin D3) 25 1,000 units PO DAILY 05/01/19 06/13/21 mcg (1,000 unit) capsule diclofenac sodium 1 % topical gel 1 gm TOPICAL QID PRN #1 gm 05/01/19 06/13/21 [id number] carb-vit K 1 tab PO DAILY 05/01/19 06/13/21 18 mg iron-400 mcg-500 mg tablet (One-A-Day Womens Formula) acetaminophen 500 mg capsule 500 mg PO BID PRN cap 06/07/19 06/13/21 glucosamine sulfate 2KCl 1,000 mg 1,000 mg PO BID PRN tab 06/07/19 06/13/21 tablet loperamide 2 mg tablet 4 mg PO DAILY tab 06/07/19 06/13/21 simethicone 80 mg chewable tablet 80 mg PO Q4H PRN tab 06/07/19 06/13/21 psyllium husk 0.4 gram capsule 0.4 g PO DAILY cap 01/25/21 06/13/21 hydrochlorothiazide 25 mg tablet 25 mg PO QAM 06/13/21 06/13/21 insulin aspart U-100 100 unit/mL 0 units SUBCUT TIDM 06/13/21 06/13/21 (3 mL) subcutaneous pen insulin glargine U-300 conc 300 80 unit SUBCUT DAILY 06/13/21 06/13/21 unit/mL (1.5 mL) subcutaneous pen Previous Rx's Medication Instructions Recorded simvastatin 20 mg tablet 20 mg PO DAILY #30 tab 08/08/20 escitalopram oxalate 10 mg tablet 10 mg PO DAILY #30 tab 01/11/21 donepezil 10 mg tablet 10 mg PO HS #30 tab 02/08/21 lisinopril 10 mg tablet 10 mg PO DAILY #30 tab 02/13/21 potassium chloride 20 mEq 20 meq PO BID #60 tab 05/09/21 tablet,extended release(part/cryst) (Klor-Con M) Results & Data (ED) Vital Signs Vital Signs - 24 hr 06/13/21 15:02 06/13/21 15:07 06/13/21 15:18 Temperature 37.0 C Temperature Source Oral Pulse Rate 75 69 71 Pulse Rate [Left] Pulse Rate from SpO2 Sensor Pulse Rhythm Regular Pulse Rhythm [Left] Pulse Strength Normal Pulse Strength [Left] Respiratory Rate 19 25 H 18 Respiratory Effort / Characteristics Non-Labored Respiratory Depth Normal Respiratory Pattern Regular Blood Pressure 119/83 119/83 Blood Pressure [Right Arm] Blood Pressure Mean 95 95 Blood Pressure Mean [Right Arm] Blood Pressure Position Lying Blood Pressure Position [Right Arm] Pulse Oximetry 97 99 98 Oxygen Delivery Method Room Air Room Air Room Air Sepsis Recent Fever Within 48 Hours No Sepsis New/Unexplained Change in Mental Status N/A Sepsis Action Taken by Nursing No Action Required 06/13/21 17:00 06/13/21 17:22 06/13/21 19:39 Temperature 36.8 C Temperature Source Oral Pulse Rate 77 Pulse Rate [Left] 77 73 Pulse Rate from SpO2 Sensor 77 Pulse Rhythm Pulse Rhythm [Left] Regular Regular Pulse Strength Pulse Strength [Left] Normal Normal Respiratory Rate 18 24 18 Respiratory Effort / Characteristics Non-Labored Non-Labored Respiratory Depth Normal Normal Respiratory Pattern Regular Regular Blood Pressure 107/67 Blood Pressure [Right Arm] 107/67 110/64 Blood Pressure Mean 80 Blood Pressure Mean [Right Arm] 80 79 Blood Pressure Position Blood Pressure Position [Right Arm] Sitting Lying Pulse Oximetry 98 96 97 Oxygen Delivery Method Room Air Room Air Room Air Sepsis Recent Fever Within 48 Hours Sepsis New/Unexplained Change in Mental Status Sepsis Action Taken by Nursing 06/13/21 19:41 06/13/21 20:00 06/13/21 20:30 Temperature Temperature Source Pulse Rate 76 76 Pulse Rate [Left] Pulse Rate from SpO2 Sensor 76 77 Pulse Rhythm Pulse Rhythm [Left] Pulse Strength Pulse Strength [Left] Respiratory Rate 18 21 Respiratory Effort / Characteristics Respiratory Depth Respiratory Pattern Blood Pressure 110/64 99/68 L 121/88 Blood Pressure [Right Arm] Blood Pressure Mean 79 78 99 Blood Pressure Mean [Right Arm] Blood Pressure Position Blood Pressure Position [Right Arm] Pulse Oximetry 95 96 96 Oxygen Delivery Method Room Air Room Air Room Air Sepsis Recent Fever Within 48 Hours Sepsis New/Unexplained Change in Mental Status Sepsis Action Taken by Nursing 06/13/21 21:00 06/13/21 21:30 06/13/21 22:02 Temperature Temperature Source Pulse Rate 69 76 74 Pulse Rate [Left] Pulse Rate from SpO2 Sensor 69 70 Pulse Rhythm Pulse Rhythm [Left] Pulse Strength Pulse Strength [Left] Respiratory Rate Respiratory Effort / Characteristics Respiratory Depth Respiratory Pattern Blood Pressure 102/65 107/70 Blood Pressure [Right Arm] Blood Pressure Mean 77 82 Blood Pressure Mean [Right Arm] Blood Pressure Position Blood Pressure Position [Right Arm] Pulse Oximetry 95 96 97 Oxygen Delivery Method Room Air Room Air Room Air Sepsis Recent Fever Within 48 Hours Sepsis New/Unexplained Change in Mental Status Sepsis Action Taken by Nursing 06/13/21 22:30 Temperature Temperature Source Pulse Rate 76 Pulse Rate [Left] Pulse Rate from SpO2 Sensor Pulse Rhythm Pulse Rhythm [Left] Pulse Strength Pulse Strength [Left] Respiratory Rate Respiratory Effort / Characteristics Respiratory Depth Respiratory Pattern Blood Pressure 108/59 L Blood Pressure [Right Arm] Blood Pressure Mean 75 Blood Pressure Mean [Right Arm] Blood Pressure Position Blood Pressure Position [Right Arm] Pulse Oximetry 97 Oxygen Delivery Method Room Air Sepsis Recent Fever Within 48 Hours Sepsis New/Unexplained Change in Mental Status Sepsis Action Taken by Nursing Laboratory Data Result diagrams: 06/13/21 15:34 06/13/21 15:34 Lab Results 06/13/21 06/13/21 06/13/21 Range/Units 14:50 15:34 15:34 WBC 16.93 H (4.8-10.8) K/uL RBC 4.61 (4.2-5.4) M/uL Hgb 14.9 (12.0-16.0) g/dL Hct 42.5 (37-47) % MCV 92.2 (80-100) fL MCH 32.3 (25-34) pg MCHC 35.1 (32-36) g/dL RDW Std Deviation 45.6 (36.4-46.3) fL RDW Coeff of Abbie 13.5 (11.5-14.5) % Plt Count 291 (130-400) K/uL MPV 10.3 (7.4-10.4) fL Immature Gran % (Auto) 0.3 % Neut % (Auto) 81.0 % Lymph % (Auto) 10.5 % [place] % (Auto) 7.9 % Eos % (Auto) 0.2 % Baso % (Auto) 0.1 % Neut # (Auto) 13.73 H (1.4-6.5) K/uL Lymph # (Auto) 1.77 (1.2-3.4) K/uL [place] # (Auto) 1.33 H (0.11-0.59) K/uL Eos # (Auto) 0.03 (0-0.5) K/uL Baso # (Auto) 0.02 (0-0.2) K/uL Immature Gran # (Auto) 0.05 H (0.00-0.02) K/uL Sodium 137 (136-145) mmol/L Potassium 3.9 (3.5-5.1) mmol/L Chloride 101 (98-107) mmol/L Carbon Dioxide 30 (21-32) mmol/L Anion Gap 7.0 (3-11) BUN 15 (7-18) mg/dl Creatinine 0.74 (0.6-1.2) mg/dl Est Cr Clr Drug Dosing Not Reportable Est GFR ( Amer) 88.1 ml/min Est GFR (Non-Af Amer) 76.0 ml/min BUN/Creatinine Ratio 20.8 H (10-20) Glucose 131 H (70-99) mg/dl POC Glucose 90 (70-99) mg/dl Calcium 9.6 (8.5-10.1) mg/dl Magnesium 2.0 (1.8-2.4) mg/dl Total Bilirubin 1.1 H (0.2-1) mg/dl AST 12 L (15-37) U/L ALT 18 (12-78) U/L Alkaline Phosphatase 91 (45-117) U/L Troponin I < 0.015 (0-0.045) ng/ml Total Protein 7.4 (6.4-8.2) gm/dl Albumin 3.4 (3.4-5.0) gm/dl Globulin 4.0 (2.5-4.0) gm/dl Albumin/Globulin Ratio 0.8 L (0.9-2) TSH 0.715 (0.300-4.500) uIu/ml Urine Color Urine Appearance (Clear) Urine pH (4.5-7.5) Ur Specific [place] (1.000-1.030) Urine Protein (Negative) Urine Glucose (UA) (Negative) Urine Ketones (Negative) Urine Blood (Negative) Urine Nitrite (Negative) Urine Bilirubin (Negative) Urine Urobilinogen (Negative) Ur Leukocyte Esterase (Negative) Urine WBC (Auto) (0-5) /hpf Urine RBC (Auto) (0-4) /hpf U Hyaline Cast (Auto) (0-5) /lpf U Epithel Cells (Auto) (0-5) /lpf Urine Bacteria (Auto) (Negative) Urine Yeast COVID-19 Eval Order SARS-CoV-2 (PCR) (Negative) 06/13/21 06/13/21 06/13/21 Range/Units 19:37 20:29 21:30 WBC (4.8-10.8) K/uL RBC (4.2-5.4) M/uL Hgb (12.0-16.0) g/dL Hct (37-47) % MCV (80-100) fL MCH (25-34) pg MCHC (32-36) g/dL RDW Std Deviation (36.4-46.3) fL RDW Coeff of Abbie (11.5-14.5) % Plt Count (130-400) K/uL MPV (7.4-10.4) fL Immature Gran % (Auto) % Neut % (Auto) % Lymph % (Auto) % [place] % (Auto) % Eos % (Auto) % Baso % (Auto) % Neut # (Auto) (1.4-6.5) K/uL Lymph # (Auto) (1.2-3.4) K/uL [place] # (Auto) (0.11-0.59) K/uL Eos # (Auto) (0-0.5) K/uL Baso # (Auto) (0-0.2) K/uL Immature Gran # (Auto) (0.00-0.02) K/uL Sodium (136-145) mmol/L Potassium (3.5-5.1) mmol/L Chloride (98-107) mmol/L Carbon Dioxide (21-32) mmol/L Anion Gap (3-11) BUN (7-18) mg/dl Creatinine (0.6-1.2) mg/dl Est Cr Clr Drug Dosing Est GFR ( Amer) ml/min Est GFR (Non-Af Amer) ml/min BUN/Creatinine Ratio (10-20) Glucose (70-99) mg/dl POC Glucose 67 L* 97 (70-99) mg/dl Calcium (8.5-10.1) mg/dl Magnesium (1.8-2.4) mg/dl Total Bilirubin (0.2-1) mg/dl AST (15-37) U/L ALT (12-78) U/L Alkaline Phosphatase (45-117) U/L Troponin I (0-0.045) ng/ml Total Protein (6.4-8.2) gm/dl Albumin (3.4-5.0) gm/dl Globulin (2.5-4.0) gm/dl Albumin/Globulin Ratio (0.9-2) TSH (0.300-4.500) uIu/ml Urine Color Urine Appearance (Clear) Urine pH (4.5-7.5) Ur Specific [place] (1.000-1.030) Urine Protein (Negative) Urine Glucose (UA) (Negative) Urine Ketones (Negative) Urine Blood (Negative) Urine Nitrite (Negative) Urine Bilirubin (Negative) Urine Urobilinogen (Negative) Ur Leukocyte Esterase (Negative) Urine WBC (Auto) (0-5) /hpf Urine RBC (Auto) (0-4) /hpf U Hyaline Cast (Auto) (0-5) /lpf U Epithel Cells (Auto) (0-5) /lpf Urine Bacteria (Auto) (Negative) Urine Yeast COVID-19 Eval Order Covid19 at [facility] SARS-CoV-2 (PCR) (Negative) 06/13/21 06/13/21 Range/Units 21:30 Unknown WBC (4.8-10.8) K/uL RBC (4.2-5.4) M/uL Hgb (12.0-16.0) g/dL Hct (37-47) % MCV (80-100) fL MCH (25-34) pg MCHC (32-36) g/dL RDW Std Deviation (36.4-46.3) fL RDW Coeff of Abbie (11.5-14.5) % Plt Count (130-400) K/uL MPV (7.4-10.4) fL Immature Gran % (Auto) % Neut % (Auto) % Lymph % (Auto) % [place] % (Auto) % Eos % (Auto) % Baso % (Auto) % Neut # (Auto) (1.4-6.5) K/uL Lymph # (Auto) (1.2-3.4) K/uL [place] # (Auto) (0.11-0.59) K/uL Eos # (Auto) (0-0.5) K/uL Baso # (Auto) (0-0.2) K/uL Immature Gran # (Auto) (0.00-0.02) K/uL Sodium (136-145) mmol/L Potassium (3.5-5.1) mmol/L Chloride (98-107) mmol/L Carbon Dioxide (21-32) mmol/L Anion Gap (3-11) BUN (7-18) mg/dl Creatinine (0.6-1.2) mg/dl Est Cr Clr Drug Dosing Est GFR ( Amer) ml/min Est GFR (Non-Af Amer) ml/min BUN/Creatinine Ratio (10-20) Glucose (70-99) mg/dl POC Glucose (70-99) mg/dl Calcium (8.5-10.1) mg/dl Magnesium (1.8-2.4) mg/dl Total Bilirubin (0.2-1) mg/dl AST (15-37) U/L ALT (12-78) U/L Alkaline Phosphatase (45-117) U/L Troponin I (0-0.045) ng/ml Total Protein (6.4-8.2) gm/dl Albumin (3.4-5.0) gm/dl Globulin (2.5-4.0) gm/dl Albumin/Globulin Ratio (0.9-2) TSH (0.300-4.500) uIu/ml Urine Color Yellow Urine Appearance Cloudy A (Clear) Urine pH 5.0 (4.5-7.5) Ur Specific [place] 1.016 (1.000-1.030) Urine Protein Negative (Negative) Urine Glucose (UA) Negative (Negative) Urine Ketones Negative (Negative) Urine Blood Trace H (Negative) Urine Nitrite Negative (Negative) Urine Bilirubin Negative (Negative) Urine Urobilinogen Negative (Negative) Ur Leukocyte Esterase 2+ H (Negative) Urine WBC (Auto) 5-10 H (0-5) /hpf Urine RBC (Auto) 0-4 (0-4) /hpf U Hyaline Cast (Auto) 1-5 (0-5) /lpf U Epithel Cells (Auto) 20-30 H (0-5) /lpf Urine Bacteria (Auto) Negative (Negative) Urine Yeast Not Reportable COVID-19 Eval Order SARS-CoV-2 (PCR) NEGATIVE (Negative) Administered Medications Sodium Chloride 77 meq/ (Dextrose) 1,030.8 mls @ 50 mls/hr IV .[id number] ALFREDO Stop: 07/13/21 19:59 Last Admin: 06/13/21 21:26 Dose: 50 mls/hr Documented by: [id number] Discontinued Medications Sodium Chloride (Nss 1000ml) 1,000 mls @ 125 mls/hr IV .Q8H ALFREDO Stop: 06/13/21 23:29 Last Admin: 06/13/21 15:40 Dose: 125 mls/hr Documented by: [id number] Ceftriaxone Sodium (Rocephin) 1,000 mg in 50 mls @ 100 mls/hr IV NOW STA Stop: 06/13/21 17:40 Last Infusion: 06/13/21 19:08 Dose: 0 mls/hr Documented by: [id number] Admin: 06/13/21 17:22 Dose: 100 mls/hr Documented by: [id number] Imaging Data Radiologist's Impression: Chest X-Ray 06/13/21 15:18 XR chest 1V portable HISTORY: 81 years-old Female weakness acute weakness COMPARISON: Chest radiograph 06/02/2021, CT cervical spine 06/02/2021. TECHNIQUE: Portable AP view of the chest FINDINGS: Cardiomediastinal and hilar silhouettes are unchanged. Calcified plaque of the thoracic aorta. No pleural effusion, airspace consolidation or overt pulmonary edema. There is a linear line projects over the left lung apex, 2 mm from the adjacent ribs. The previously questioned 1.2 cm nodule of the left upper lung is not definitively seen. Degenerative changes of the shoulders and spine. Mid thoracic dextroscoliosis. IMPRESSION: Linear line of the left lung apex suggestive of a skin fold versus tiny apical pneumothorax. Correlation with follow-up inspiration and expiration films recommended. ACT 112: Negative or not required by law. The above report was generated using voice recognition software. It may contain grammatical, syntax or spelling errors. Electronically signed by: Lino Brar M.D. 06/13/2021 4:[address] 06/13/21 15:18 CT head/brain wo con CLINICAL HISTORY: 81 years-old Female with weakness, confusion. Acutely altered mental status TECHNIQUE: Multiple axial CT images of the head were obtained without contrast. A dose lowering technique was utilized adhering to the principles of ALARA. CT DOSE: 537.48 mGy.cm COMPARISON: Head CT 06/02/2021 FINDINGS: No acute intracranial hemorrhage, midline shift, intracranial mass, hydrocephalus, territorial ischemia or abnormal extra-axial collection. Age- related involutional changes. White matter hypodensities suggestive of chronic microvascular ischemic disease. Falx cerebri calcifications. The calvarium is intact. Mastoid air cells are clear. Severe mucoperiosteal thickening of the right maxillary sinus with area of large polypoid mucosal thickening within the right sphenoid sinus. 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 Unremarkable soft tissues and orbits. IMPRESSION: No acute intracranial abnormality. ACT 112: Negative or not required by law. The above report was generated using voice recognition software. It may contain grammatical, syntax or spelling errors. Electronically signed by: Lino Brar M.D. 06/13/2021 4:[address] 06/13/21 17:11 CT chest diagnostic wo con CT DOSE: 164.77 mGy.cm CLINICAL HISTORY: 81 years-old Female with question L chest ptx on xray. Follow-up study in a patient with questioned left-sided pneumothorax TECHNIQUE: Multiaxial CT images of the chest were performed without contrast. A dose lowering technique was utilized adhering to the principles of ALARA. COMPARISON: Chest radiograph of same day, chest CT 06/28/2019, 06/15/2018, April 09, 2017. FINDINGS: Multinodular thyroid. Mild cardiomegaly. No pericardial effusion. Extensive coronary artery calcifications. Fusiform dilation of the ascending thoracic aorta measuring 4.0 x 4.0 cm previously measured 3.8 cm in 2019. Moderate atherosclerosis of the thoracic aorta. There is no adenopathy. No pneumothorax, pleural effusion, airspace consolidation or overt pulmonary edema. Numerous (greater than 10) bilateral solid pulmonary nodules are redemonstrated measuring up to 8 mm within the right lower lobe. These appear generally stable dating back to 2017. The central airways are patent. No acute process of the imaged upper abdomen. Unremarkable soft tissues. No acute fracture. Mid thoracic dextroscoliosis. Chronic appearing mid sternal fracture just below the sternomanubrial joint. IMPRESSION: 1. No acute intrathoracic abnormality. Specifically, there is no pneumothorax. 2. Numerous bilateral solid pulmonary nodules measuring up to 8 mm appear generally stable dating back to 2017. 3. Multinodular thyroid goiter. 4. Aneurysmal dilation of the ascending thoracic aorta measures 4.0 cm, previously 3.8 cm on the June 28, 2019 exam. ACT 112: Negative or not required by law. Electronically signed by: Lino Brar M.D. 06/13/2021 7:07 PM Discharge Plan Visit Data Chief Complaint: Hypoglycemia ED Provider: Joseph Berry Discharge Problem: Hypoglycemia, Weakness Patient Disposition: Admitted As Inpatient Discharge Instructions Interventions: ED Discharge Assessment Last Done: 06/13/21 23:05 Forms Stand Alone Forms: [employer] Prescriptions Prescriptions: No Action simvastatin 20 mg tablet 20 mg PO DAILY Qty: 30 RF: 5 escitalopram oxalate 10 mg tablet 10 mg PO DAILY Qty: 30 RF: 11 lisinopril 10 mg tablet 10 mg PO DAILY Qty: 30 RF: 11 potassium chloride [Klor-Con M20] 20 mEq tablet,ER particles/crystals 20 meq PO BID Qty: 60 RF: 5 cholecalciferol (vitamin D3) 1,000 unit capsule 1,000 units PO DAILY RF: 0 One-A-Day Womens Formula 18 mg iron-400 mcg-500 mg tablet 1 tab PO DAILY RF: 0 diclofenac sodium 1 % gel 1 gm topical QID PRN (Reason: hip pain) Qty: 1 RF: 0 glucosamine sulfate 2KCl 1,000 mg tablet 1,000 mg PO BID PRN (Reason: NEEDED) RF: 0 loperamide 2 mg tablet 4 mg PO DAILY RF: 0 acetaminophen 500 mg capsule 500 mg PO BID PRN (Reason: fever or pain) RF: 0 simethicone 80 mg tablet,chewable 80 mg PO Q4H PRN (Reason: abdominal distention) RF: 0 psyllium husk 0.4 gram capsule 0.4 g PO DAILY RF: 0 donepezil 10 mg tablet 10 mg PO HS Qty: 30 RF: 5 hydrochlorothiazide 25 mg tablet 25 mg PO QAM RF: 0 insulin aspart U-100 100 unit/mL (3 mL) insulin pen 0 units subcut TIDM RF: 0 insulin glargine U-300 conc 300 unit/mL (1.5 mL) insulin pen 80 unit subcut DAILY RF: 0 Referrals Referrals: America Osullivan MD [Primary Care Provider] -
[2021-06-13] MEDS ORDERED: SODIUM CHLORIDE 0.9% 1000ML 1,000 ML IV SCH (15:30)
[2021-06-13 15:48] LABS: Basophils # (auto) 0.02 K/uL (0-0.2); Basophils % (auto) 0.1 %; Eosinophils # (auto) 0.03 K/uL (0-0.5); Eosinophils % (auto) 0.2 %; Hematocrit (blood only) 42.5 % (37-47); Hemoglobin 14.9 g/dL (12.0-16.0); Immature Granulocytes # (auto) 0.05 K/uL (0.00-0.02); Immature Granulocytes % (auto) 0.3 %; Lymphocytes # (auto) 1.77 K/uL (1.2-3.4); Lymphocytes % (auto) 10.5 %; Mean Corpuscular Hemoglobin 32.3 pg (25-34); Mean Corpuscular Hgb Conc 35.1 g/dL (32-36); Mean Corpuscular Volume 92.2 fL (80-100); Mean Platelet Volume 10.3 fL (7.4-10.4); Monocytes # (auto) 1.33 K/uL (0.11-0.59); Monocytes % (auto) 7.9 %; Neutrophils # (auto) 13.73 K/uL (1.4-6.5); Platelet Count 291 K/uL (130-400); RDW Coefficient of Variation 13.5 % (11.5-14.5); RDW Standard Deviation 45.6 fL (36.4-46.3); Red Blood Count 4.61 M/uL (4.2-5.4); White Blood Count 16.93 K/uL (4.8-10.8)
[2021-06-13 15:55] LABS: Appearance Urine Cloudy (Clear); Bacteria Urine Automated Negative (Negative); Bilirubin Urine Negative (Negative); Blood Urine Trace (Negative); Color Urine Yellow; Epithelial Cell Urine Auto 20-30 /lpf (0-5); Glucose Urine UA Negative (Negative); Ketones Urine Negative (Negative); Leukocyte Esterase Urine 2+ (Negative); Nitrite Urine Negative (Negative); Protein Urine Negative (Negative); Specific Gravity Urine 1.016 (1.000-1.030); Urobilinogen Urine Negative (Negative)
[2021-06-13 16:05] LABS: Alanine Aminotransferase 18 U/L (12-78); Albumin Level 3.4 gm/dl (3.4-5.0); Aspartate Aminotransferase 12 U/L (15-37); BUN Creatinine Ratio 20.8 (10-20); Blood Urea Nitrogen 15 mg/dl (7-18); Calcium 9.6 mg/dl (8.5-10.1); Carbon Dioxide 30 mmol/L (21-32); Chloride 101 mmol/L (98-107); Est GFR (African American) 88.1 ml/min; Glucose 131 mg/dl (70-99); Potassium 3.9 mmol/L (3.5-5.1); Sodium 137 mmol/L (136-145)
[2021-06-13 16:13] LABS: RBC Urine Automated 0-4 /hpf (0-4)
[2021-06-13 16:15] LABS: Albumin Globulin Ratio 0.8 (0.9-2); Alkaline Phosphatase 91 U/L (45-117); Bilirubin,Total 1.1 mg/dl (0.2-1); Thyroid Stimulating Hormone 0.715 uIu/ml (0.300-4.500); Total Protein 7.4 gm/dl (6.4-8.2); Troponin I < 0.015 ng/ml (0-0.045)
--- NOTE | 2021-06-13 16:18 | XRay Report ---
XR chest 1V portable HISTORY: 81 years-old Female weakness acute weakness COMPARISON: Chest radiograph 06/02/2021, CT cervical spine 06/02/2021. TECHNIQUE: Portable AP view of the chest FINDINGS: Cardiomediastinal and hilar silhouettes are unchanged. Calcified plaque of the thoracic aorta. No ple ural effusion, airspace consolidation or overt pulmonary edema. There is a linear line projects over the left lung apex, 2 mm from the adjacent ribs. The previously questioned 1.2 cm nodule of the left upper lung is not definitively seen. Degenerative changes of the shoulders and spine. Mid t horacic dextroscoliosis. IMPRESSION: Linear line of the left lung apex suggestive of a skin fold versus tiny apical pneumothor ax. Correlation with follow-up inspiration and expiration films recommended. ACT 112: Negative or not required by law. The above report was generated using voice recognition software. It may contain grammatical, syntax o r spelling errors. Electronically signed by: Lino Brar M.D. 06/13/2021 4:17 PM
--- NOTE | 2021-06-13 16:38 | CT Scan Report ---
CT head/brain wo con CLINICAL HISTORY: 81 years-old Female with weakness, confusion. Acutely altered mental status TECHNIQUE: Multiple axial CT images of the head were obtained without contrast. A dose lowering tech nique was utilized adhering to the principles of ALARA. CT DOSE: 537.48 mGy.cm COMPARISON: Head CT 06/02/2021 FINDINGS: No acute intracranial hemorrhage, midline shift, intracranial mass, hydrocephalus, territorial ischem ia or abnormal extra-axial collection. Age-related involutional changes. White matter hypodensities s uggestive of chronic microvascular ischemic disease. Falx cerebri calcifications. The calvarium is in tact. Mastoid air cells are clear. Severe mucoperiosteal thickening of the right maxillary sinus with area of large polypoid mucosal thickening within the right sphenoid sinus. 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 Unremarkable soft tissues and orbits. IMPRESSION: No acute intracranial abnormality. ACT 112: Negative or not required by law. The above report was generated using voice recognition software. It may contain grammatical, syntax o r spelling errors. Electronically signed by: Lino Brar M.D. 06/13/2021 4:37 PM
[2021-06-13] MEDS ORDERED: cefTRIAXone SODIUM 1,000 MG/50 ML BAG IV STA (17:11)
--- NOTE | 2021-06-13 19:08 | CT Scan Report ---
CT chest diagnostic wo con CT DOSE: 164.77 mGy.cm CLINICAL HISTORY: 81 years-old Female with question L chest ptx on xray. Follow-up study in a patien t with questioned left-sided pneumothorax TECHNIQUE: Multiaxial CT images of the chest were performed without contrast. A dose lowering techni que was utilized adhering to the principles of ALARA. COMPARISON: Chest radiograph of same day, chest CT 06/28/2019, 06/15/2018, April 09, 2017. FINDINGS: Multinodular thyroid. Mild cardiomegaly. No pericardial effusion. Extensive coronary artery calcifications. Fusiform dilation of the ascending thoracic aorta measuring 4.0 x 4.0 cm previously measured 3.8 cm in 2019. Moderate atherosclerosis of the thoracic aorta. There is no adenopathy. No pneumothorax, pleural effusion, airspace consolidation or overt pulmonary edema. Numerous (greater than 10) bilateral solid pulmonary nodules are redemonstrated measuring up to 8 mm within the right lower lobe. These appear generally stable dating back to 2016. The central airways are patent. No acute process of the imaged upper abdomen. Unremarkable soft tissues. No acute fracture. Mid thora cic dextroscoliosis. Chronic appearing mid sternal fracture just below the sternomanubrial joint. IMPRESSION: 1. No acute intrathoracic abnormality. Specifically, there is no pneumothorax. 2. Numerous bilateral solid pulmonary nodules measuring up to 8 mm appear generally stable dating brock k to 2016. 3. Multinodular thyroid goiter. 4. Aneurysmal dilation of the ascending thoracic aorta measures 4.0 cm, previously 3.8 cm on the Jun exam. ACT 112: Negative or not required by law. Electronically signed by: Lino Brar M.D. 06/13/2021 7:07 PM
[2021-06-13] MEDS ORDERED: SODI CHLOR 2.5MEQ/ML 14.6% 77 MEQ in DEXTROSE 10% 1,000 ML IV SCH (20:00)
--- NOTE | 2021-06-13 20:34 | History & Physical Report ---
Date of Service June 13, 2021 Assessment & Plan (1) Hypoglycemia: Plan: 81-year-old female with multiple medical problems presenting with hypoglycemia. Blood sugar 40 prior to arrival. Was administered glucagon x2 doses with slight improvement. Patient eating and feeling well. Uncertain if hypoglycemia is secondary to medication effectspatient is on insulin, poor oral intake, infection. Last hemoglobin A1c on 06/03/21 = 9.6 Observation to medical floor We will hold insulin Fingerstick glucose every 2 hours (2) Urinary frequency: Plan: Daughter endorses increased urinary frequency. Await urine culture Ceftriaxone 1 g IV daily (3) Ambulatory dysfunction: Plan: Daughter states the patient is having a difficult time ambulating at home. Reports that she is unsteady on her feet and requires full assistance to get up from bed. Nursing and ER states the patient was able to ambulate to the bathroom with very minimal assistance. Daughter seems to be having a difficult time at this point caring for her mother at home. PT/OT evaluations. Patient's daughter may need additional help at home, home services versus rehab placement (4) Mild cognitive impairment: Plan: Chronic. Patient presently oriented and is answering questions appropriately Continue Aricept 10 mg p.o. nightly (5) Hypertension: Plan: Blood pressure well controlled Continue hydrochlorothiazide 25 mg p.o. every morning. Consider discontinuing this agent on discharge as patient is experiencing frequent urination Continue lisinopril Continue to monitor (6) Diabetes type 2, uncontrolled: Plan: Patient presenting with hypoglycemia as described above Holding insulin therapy for now Blood sugar every 2 hours to monitor trend Regular diet as tolerated (7) Anxiety: Plan: Chronic. Continue escitalopram History of Present Illness Chief Complaint: Weakness, ambulatory dysfunction Primary Care Provider: America Osullivan MD Stefani Parrish is an 81-year-old female with history of hypertension, hyperlipidemia, diabetes, dementia presenting for hypoglycemia. Patient was recently admitted to [facility] from 06/02/2021 through 06/05/2021 after a fall at home. She was discharged to home in [place] with plan for home PT and OT. She had friends and neighbors that were checking in on her however, her daughter felt that she needed more care therefore, patient recently moved in with her daughter in [place]. Daughter notes that since being home patient has had difficulty with mobility. She has needed significant help to get up and ambulate. Daughter also notes patient has had some diarrhea as well as urinary frequency and urgency. Daughter is in the process of getting home services (PT and OT) for her mother at her home in [place]. This morning patient's daughter tried to get the patient up to go to doctor's appointments. Patient was minimally responsive and quite somnolent. She stood up and then slid off the bed. EMS was called. When they arrived her blood sugar was noted to be 40. She was administered p.o. glucagon which increased her blood sugar to 45 on repeat. Was administered a second dose of p.o. glucagon which increased her blood sugar to 51. On arrival to the ER her blood sugar was found to be 90, 131 on chemistry panel. It did decrease again to 67. Patient is sitting up in bed eating a sandwich and states she feels fine. She does complain of some lightheadedness and dizziness as well as ambulatory dysfunction. Daughter reports the patient's blood sugars have been intermittently low while at home, occasionally in the 50s. Daughter has not been administering insulin. ER course: Ceftriaxone, normal saline Allergies Allergy/AdvReac Type Severity Reaction Status Date / Time bee venom protein (honey bee) Allergy Intermediate SWELLING Verified 06/13/21 20:50 codeine Allergy Intermediate HEADACHE Verified 06/13/21 20:50 Home Medications Medication Instructions Recorded Confirmed Type cholecalciferol (vitamin D3) 25 1,000 units PO DAILY 05/01/19 06/13/21 History mcg (1,000 unit) capsule diclofenac sodium 1 % topical gel 1 gm TOPICAL QID PRN #1 gm 05/01/19 06/13/21 History [id number]-Ca carb-vit K 1 tab PO DAILY 05/01/19 06/13/21 History 18 mg iron-400 mcg-500 mg tablet (One-A-Day Womens Formula) acetaminophen 500 mg capsule 500 mg PO BID PRN cap 06/07/19 06/13/21 History glucosamine sulfate 2KCl 1,000 mg 1,000 mg PO BID PRN tab 06/07/19 06/13/21 History tablet loperamide 2 mg tablet 4 mg PO DAILY tab 06/07/19 06/13/21 History simethicone 80 mg chewable tablet 80 mg PO Q4H PRN tab 06/07/19 06/13/21 History simvastatin 20 mg tablet 20 mg PO DAILY #30 tab 08/08/20 06/13/21 Rx escitalopram oxalate 10 mg tablet 10 mg PO DAILY #30 tab 01/11/21 06/13/21 Rx psyllium husk 0.4 gram capsule 0.4 g PO DAILY cap 01/25/21 06/13/21 History donepezil 10 mg tablet 10 mg PO HS #30 tab 02/08/21 06/13/21 Rx lisinopril 10 mg tablet 10 mg PO DAILY #30 tab 02/13/21 06/13/21 Rx potassium chloride 20 mEq 20 meq PO BID #60 tab 05/09/21 06/13/21 Rx tablet,extended release(part/cryst) (Marisela Madsen) hydrochlorothiazide 25 mg tablet 25 mg PO QAM 06/13/21 06/13/21 History insulin aspart U-100 100 unit/mL 0 units SUBCUT TIDM 06/13/21 06/13/21 History (3 mL) subcutaneous pen insulin glargine U-300 conc 300 80 unit SUBCUT DAILY 06/13/21 06/13/21 History unit/mL (1.5 mL) subcutaneous pen Past Med/Surg History Medical History (Updated 06/14/21 @ 04:13 by Whitley Shook DO) Dehydration Diverticulosis DSAP (disseminated superficial actinic porokeratosis) Endometrial adenocarcinoma Fall from standing Fatigue Hearing difficulty History of actinic keratosis History of cellulitis 2nd toe History of lymphocytosis History of osteopenia History of postmenopausal bleeding History of solar lentigo Hyperglycemia Hypokalemia Hypomagnesemia Lung nodules Murmur Near syncope Solitary thyroid nodule Tubular adenoma of colon Weakness Surgical History H/O colonoscopy History of hysterectomy with bilateral oophorectomy S/P appendectomy S/P dilation and curettage Status post repair of nerve carpal tunnel Family History Sister Anxiety Depression Mother Gallbladder disease Diabetes Aunt Diabetes Father Cardiac disorder Myocardial infarction Skin cancer Family/Other Stroke Grandmother (Maternal) Cardiac disorder Diabetes and maternal great grandmother Daughter Diabetes Denies family history of Ovarian cancer Prostate cancer Crohn's disease Breast cancer Colorectal cancer Ulcerative colitis Social History Smoking Status: Never smoker Second Hand Exposure: No; Do You Dip or Chew Tobacco: No; Tobacco Cessation Education Requested by Patient: No Hx Alcohol Use: No Hx Substance Use: No Preferred Language: Swedish Communication Ability: Effective Filterer Required: No Beliefs That Will Affect Care: None marital status: / Current Living Situation: Family current occupational status: retired Other Information That Helps Us Care for You: No Feels Safe at Home: Yes Safety Concerns: Feels Safe At This Time caffeine: Yes Dental Care, Regularly: Yes Physical Activity Frequency: 3-4 Times per Week Seatbelt Use: always Sunscreen Use: No Assistive Devices: Denture - Upper, Glasses and Walker Review of Systems Review of Systems: All systems reviewed & are unremarkable except as noted in HPI & below Physical Exam Physical Exam: General: patient resting comfortably, NAD, non-toxic in appearance, AA&O x 4 Skin: warm, dry, intact, no rashes or lesions HEENT: NC/AT, PERRL, EOMI, anicteric sclera, conjunctiva without injection, external ear normal to inspection and nontender, nares patent, moist mucus membranes, dentition intact, no oropharyngeal lesions, neck supple, trachea midline, no LAD, no thyromegaly, no JVD Heart: +S1/S2, regular, no m/r/g Lungs: equal air entry bilaterally, no rales/rhonchi/wheezes Abd: +BS, soft, NT/ND, no masses/organomegaly/ascites Ext: warm, 2+ pulses in UE/LE bilaterally, no clubbing/cyanosis or edema Neuro: nonfocal, patient AA&O x 4, speech intact, no facial droop, moving all extremities on command with equal strength 5/5 Results & Data Results & Data ([facility]) Vital Signs (Past 12 Hours) Vital Signs Temp Pulse Pulse Resp BP BP Pulse Ox 06/13/21 19:39 73 18 110/64 97 06/13/21 17:22 77 24 107/67 96 06/13/21 17:00 36.8 C 77 18 107/67 98 06/13/21 15:18 71 18 98 06/13/21 15:07 69 25 H 119/83 99 06/13/21 15:02 37.0 C 75 19 119/83 97 Laboratory Results Laboratory Results WBC 16.93 K/uL (4.8-10.8) H 06/13/21 15:34 RBC 4.61 M/uL (4.2-5.4) 06/13/21 15:34 Hgb 14.9 g/dL (12.0-16.0) 06/13/21 15:34 Hct 42.5 % (37-47) 06/13/21 15:34 MCV 92.2 fL (80-100) 06/13/21 15:34 MCH 32.3 pg (25-34) 06/13/21 15:34 MCHC 35.1 g/dL (32-36) 06/13/21 15:34 RDW Std Deviation 45.6 fL (36.4-46.3) 06/13/21 15:34 RDW Coeff of Abbie 13.5 % (11.5-14.5) 06/13/21 15:34 Plt Count 291 K/uL (130-400) 06/13/21 15:34 MPV 10.3 fL (7.4-10.4) 06/13/21 15:34 Immature Gran % (Auto) 0.3 % 06/13/21 15:34 Neut % (Auto) 81.0 % 06/13/21 15:34 Lymph % (Auto) 10.5 % 06/13/21 15:34 [place] % (Auto) 7.9 % 06/13/21 15:34 Eos % (Auto) 0.2 % 06/13/21 15:34 Baso % (Auto) 0.1 % 06/13/21 15:34 Neut # (Auto) 13.73 K/uL (1.4-6.5) H 06/13/21 15:34 Lymph # (Auto) 1.77 K/uL (1.2-3.4) 06/13/21 15:34 [place] # (Auto) 1.33 K/uL (0.11-0.59) H 06/13/21 15:34 Eos # (Auto) 0.03 K/uL (0-0.5) 06/13/21 15:34 Baso # (Auto) 0.02 K/uL (0-0.2) 06/13/21 15:34 Immature Gran # (Auto) 0.05 K/uL (0.00-0.02) H 06/13/21 15:34 Sodium 137 mmol/L (136-145) 06/13/21 15:34 Potassium 3.9 mmol/L (3.5-5.1) 06/13/21 15:34 Chloride 101 mmol/L (98-107) 06/13/21 15:34 Carbon Dioxide 30 mmol/L (21-32) 06/13/21 15:34 Anion Gap 7.0 (3-11) 06/13/21 15:34 BUN 15 mg/dl (7-18) 06/13/21 15:34 Creatinine 0.74 mg/dl (0.6-1.2) 06/13/21 15:34 Est Cr Clr Drug Dosing Not Reportable 06/13/21 15:34 Est GFR ( Amer) 88.1 ml/min 06/13/21 15:34 Est GFR (Non-Af Amer) 76.0 ml/min 06/13/21 15:34 BUN/Creatinine Ratio 20.8 (10-20) H 06/13/21 15:34 Glucose 131 mg/dl (70-99) H 06/13/21 15:34 POC Glucose 137 mg/dl (70-99) H 06/14/21 02:39 Calcium 9.6 mg/dl (8.5-10.1) 06/13/21 15:34 Phosphorus 4.6 mg/dl (2.5-4.9) 06/13/21 15:34 Magnesium 2.0 mg/dl (1.8-2.4) 06/13/21 15:34 Total Bilirubin 1.1 mg/dl (0.2-1) H 06/13/21 15:34 AST 12 U/L (15-37) L 06/13/21 15:34 ALT 18 U/L (12-78) 06/13/21 15:34 Alkaline Phosphatase 91 U/L (45-117) 06/13/21 15:34 Troponin I < 0.015 ng/ml (0-0.045) 06/13/21 15:34 Total Protein 7.4 gm/dl (6.4-8.2) 06/13/21 15:34 Albumin 3.4 gm/dl (3.4-5.0) 06/13/21 15:34 Globulin 4.0 gm/dl (2.5-4.0) 06/13/21 15:34 Albumin/Globulin Ratio 0.8 (0.9-2) L 06/13/21 15:34 TSH 0.715 uIu/ml (0.300-4.500) 06/13/21 15:34 Urine Color Yellow 06/13/21 Unknown Urine Appearance Cloudy (Clear) A 06/13/21 Unknown Urine pH 5.0 (4.5-7.5) 06/13/21 Unknown Ur Specific [place] 1.016 (1.000-1.030) 06/13/21 Unknown Urine Protein Negative (Negative) 06/13/21 Unknown Urine Glucose (UA) Negative (Negative) 06/13/21 Unknown Urine Ketones Negative (Negative) 06/13/21 Unknown Urine Blood Trace (Negative) H 06/13/21 Unknown Urine Nitrite Negative (Negative) 06/13/21 Unknown Urine Bilirubin Negative (Negative) 06/13/21 Unknown Urine Urobilinogen Negative (Negative) 06/13/21 Unknown Ur Leukocyte Esterase 2+ (Negative) H 06/13/21 Unknown Urine WBC (Auto) 5-10 /hpf (0-5) H 06/13/21 Unknown Urine RBC (Auto) 0-4 /hpf (0-4) 06/13/21 Unknown U Hyaline Cast (Auto) 1-5 /lpf (0-5) 06/13/21 Unknown U Epithel Cells (Auto) 20-30 /lpf (0-5) H 06/13/21 Unknown Urine Bacteria (Auto) Negative (Negative) 06/13/21 Unknown Urine Yeast Not Reportable 06/13/21 Unknown COVID-19 Eval Order Covid19 at [facility] 06/13/21 21:30 SARS-CoV-2 (PCR) NEGATIVE (Negative) 06/13/21 21:30 Impressions Chest X-Ray 06/13/21 15:18 XR chest 1V portable HISTORY: 81 years-old Female weakness acute weakness COMPARISON: Chest radiograph 06/02/2021, CT cervical spine 06/02/2021. TECHNIQUE: Portable AP view of the chest FINDINGS: Cardiomediastinal and hilar silhouettes are unchanged. Calcified plaque of the thoracic aorta. No pleural effusion, airspace consolidation or overt pulmonary edema. There is a linear line projects over the left lung apex, 2 mm from the adjacent ribs. The previously questioned 1.2 cm nodule of the left upper lung is not definitively seen. Degenerative changes of the shoulders and spine. Mid thoracic dextroscoliosis. IMPRESSION: Linear line of the left lung apex suggestive of a skin fold versus tiny apical pneumothorax. Correlation with follow-up inspiration and expiration films recommended. ACT 112: Negative or not required by law. The above report was generated using voice recognition software. It may contain grammatical, syntax or spelling errors. Electronically signed by: Lino Brar M.D. 06/13/2021 4:[address] 06/13/21 15:18 CT head/brain wo con CLINICAL HISTORY: 81 years-old Female with weakness, confusion. Acutely altered mental status TECHNIQUE: Multiple axial CT images of the head were obtained without contrast. A dose lowering technique was utilized adhering to the principles of ALARA. CT DOSE: 537.48 mGy.cm COMPARISON: Head CT 06/02/2021 FINDINGS: No acute intracranial hemorrhage, midline shift, intracranial mass, hydrocephalus, territorial ischemia or abnormal extra-axial collection. Age- related involutional changes. White matter hypodensities suggestive of chronic microvascular ischemic disease. Falx cerebri calcifications. The calvarium is intact. Mastoid air cells are clear. Severe mucoperiosteal thickening of the right maxillary sinus with area of large polypoid mucosal thickening within the right sphenoid sinus. 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 Unremarkable soft tissues and orbits. IMPRESSION: No acute intracranial abnormality. ACT 112: Negative or not required by law. The above report was generated using voice recognition software. It may contain grammatical, syntax or spelling errors. Electronically signed by: Lino Brar M.D. 06/13/2021 4:[address] 06/13/21 17:11 CT chest diagnostic wo con CT DOSE: 164.77 mGy.cm CLINICAL HISTORY: 81 years-old Female with question L chest ptx on xray. Follow-up study in a patient with questioned left-sided pneumothorax TECHNIQUE: Multiaxial CT images of the chest were performed without contrast. A dose lowering technique was utilized adhering to the principles of ALARA. COMPARISON: Chest radiograph of same day, chest CT 06/28/2019, 06/15/2018, April 09, 2017. FINDINGS: Multinodular thyroid. Mild cardiomegaly. No pericardial effusion. Extensive coronary artery calcifications. Fusiform dilation of the ascending thoracic aorta measuring 4.0 x 4.0 cm previously measured 3.8 cm in 2019. Moderate atherosclerosis of the thoracic aorta. There is no adenopathy. No pneumothorax, pleural effusion, airspace consolidation or overt pulmonary edema. Numerous (greater than 10) bilateral solid pulmonary nodules are redemonstrated measuring up to 8 mm within the right lower lobe. These appear generally stable dating back to 2017. The central airways are patent. No acute process of the imaged upper abdomen. Unremarkable soft tissues. No acute fracture. Mid thoracic dextroscoliosis. Chronic appearing mid sternal fracture just below the sternomanubrial joint. IMPRESSION: 1. No acute intrathoracic abnormality. Specifically, there is no pneumothorax. 2. Numerous bilateral solid pulmonary nodules measuring up to 8 mm appear generally stable dating back to 2016. 3. Multinodular thyroid goiter. 4. Aneurysmal dilation of the ascending thoracic aorta measures 4.0 cm, previously 3.8 cm on the June 28, 2019 exam. ACT 112: Negative or not required by law. Electronically signed by: Lino Brar M.D. 06/13/2021 7:07 PM Code Status & VTE Plan VTE Prophylaxis Plan VTE Prophylaxis will be ordered: Yes PG Care Time/CCT Total # of Minutes Spent Total Time Spent with Patient: Total time spent is greater than 50% in coordination of care (as documented) at patient's floor/unit and/or counseling patient: Coding Level of Care Code INT OBSERVATION CARE 70M LVL 3 Diagnoses Anxiety F41.9 Hypertension I10 Diabetes type 2, uncontrolled E11.65 Mild cognitive impairment G31.84 Hypoglycemia E16.2 Urinary frequency R35.0 Ambulatory dysfunction R26.2
[2021-06-14] MEDS ORDERED: DEXTROSE 50% 50 ML SYRINGE IV PRN (00:11)
[2021-06-14] MEDS ORDERED: CARBOHYDRATES FOR HYPOGLYCEMIA PO PRN (00:11)
[2021-06-14] MEDS ORDERED: ONDANSETRON INJ 2 MG/ML 2 ML VIAL IV PRN (00:11)
[2021-06-14] MEDS ORDERED: DICLOFENAC SOD 1% GEL 100 GM TUBE EXT PRN (00:11)
[2021-06-14] MEDS ORDERED: GLUCOSE 40% GEL 15 GM TUBE PO PRN (00:11)
[2021-06-14] MEDS ORDERED: GLUCOSE 10 TABS/TUBE PO PRN (00:11)
[2021-06-14] MEDS ORDERED: GLUCAGON FOR INJ 1 MG VIAL SQ PRN (00:11)
[2021-06-14] MEDS ORDERED: ACETAMINOPHEN 325 MG TAB PO PRN (00:11)
[2021-06-14 02:08] LABS: Phosphorus 4.6 mg/dl (2.5-4.9)
[2021-06-14 06:32] LABS: Basophils # (auto) 0.02 K/uL (0-0.2); Basophils % (auto) 0.1 %; Eosinophils # (auto) 0.08 K/uL (0-0.5); Eosinophils % (auto) 0.5 %; Hematocrit (blood only) 41.5 % (37-47); Hemoglobin 13.9 g/dL (12.0-16.0); Immature Granulocytes # (auto) 0.03 K/uL (0.00-0.02); Immature Granulocytes % (auto) 0.2 %; Lymphocytes # (auto) 2.87 K/uL (1.2-3.4); Mean Corpuscular Hemoglobin 31.2 pg (25-34); Mean Corpuscular Hgb Conc 33.5 g/dL (32-36); Mean Corpuscular Volume 93.3 fL (80-100); Mean Platelet Volume 10.2 fL (7.4-10.4); Monocytes # (auto) 1.13 K/uL (0.11-0.59); Monocytes % (auto) 6.7 %; Neutrophils # (auto) 12.75 K/uL (1.4-6.5); Neutrophils % (auto) 75.5 %; Platelet Count 276 K/uL (130-400); RDW Coefficient of Variation 13.5 % (11.5-14.5); RDW Standard Deviation 46.7 fL (36.4-46.3); Red Blood Count 4.45 M/uL (4.2-5.4); White Blood Count 16.88 K/uL (4.8-10.8)
[2021-06-14 07:09] LABS: BUN Creatinine Ratio 25.7 (10-20); Bilirubin Direct 0.3 mg/dl (0-0.2); Calcium 9.3 mg/dl (8.5-10.1); Creatinine Clr Calc Pharmacy 55.2 ml/min; Est GFR (African American) 98.5 ml/min; Potassium 3.8 mmol/L (3.5-5.1)
[2021-06-14 07:12] LABS: Total Protein 6.6 gm/dl (6.4-8.2)
[2021-06-14] MEDS ORDERED: hydroCHLOROthiazide 25 MG TAB PO SCH (09:00)
[2021-06-14] MEDS ORDERED: POTASSIUM CHLORIDE CRTAB 20 MEQ TABCR PO SCH (09:00)
[2021-06-14] MEDS: ESCITALOPRAM OXALATE 10 MG TAB PO SCH (09:41)
[2021-06-14] MEDS: SIMVASTATIN 20 MG TAB PO SCH (09:41)
[2021-06-14] MEDS: lisinopril 10 MG TAB PO SCH (09:41)
[2021-06-14 11:00] LABS: Cdiff Antigen Positive
[2021-06-14 11:02] LABS: Cdiff Toxin A+B Positive Cdiff Toxin (Negative)
[2021-06-14] MEDS: VANCOMYCIN HCL 125 MG/2.5ML SOLN PO SCH ×3 (12:30→23:44)
[2021-06-14] MEDS: RASPBERRY SYRUP 5 ML UDP PO SCH ×3 (12:30→23:44)
[2021-06-14] MEDS: INSULIN GLARGINE SOLOSTAR 100 UNITS/ML 3 ML PEN SC SCH ×2 (13:20→21:40)
[2021-06-14] MEDS: INSULIN ASPART 100 UNITS/ML 3 ML PEN SC SCH ×3 (13:20→21:40)
--- NOTE | 2021-06-14 17:01 | Hospitalist Progress Note ---
Date of Service June 14, 2021 Assessment & Plan (1) Hypoglycemia: Plan: 81-year-old female with multiple medical problems presenting with hypoglycemia. Blood sugar 40 prior to arrival. Now with hyperglycemia after holding of home insulin. Patient eating and feeling well. Uncertain if hypoglycemia is secondary to medication effectspatient is on insulin, poor oral intake, infection with C. difficile diarrhea. Last hemoglobin A1c on 06/03/21 = 9.6-uncontrolled Insulin held initially now with hyperglycemia in the 300s Restart Lantus 8 units SQ twice daily Start NovoLog supplemental insulin with correction factor of 30, no carbohydrate coverage for now (2) C. difficile diarrhea: Plan: With multiple episodes of loose stool-tested positive for C. difficile Start vancomycin 125 mg p.o. 4 times daily x10-day course Stop antibiotics for UTI as below (3) Diabetes type 2, uncontrolled: Plan: Patient presenting with hypoglycemia as described above and now with hyperglycemia Plan as above (4) Urinary frequency: Plan: Daughter endorses increased urinary frequency. UA appears contaminated with epithelial cells Urine culture pending but would not treat for this as it is contaminated Discontinue ceftriaxone especially in the setting of active C. difficile colitis/diarrhea (5) Ambulatory dysfunction: Plan: Daughter states the patient is having a difficult time ambulating at home. R eports that she is unsteady on her feet and requires full assistance to get up from bed. Nursing and ER states the patient was able to ambulate to the bathroom with very minimal assistance. Daughter seems to be having a difficult time at this point caring for her mother at home. PT/OT evaluations. Patient's daughter may need additional help at home, home services versus rehab placement Patient is requesting rehab placement-Case management is involved (6) Mild cognitive impairment: Plan: Chronic. Patient presently oriented and is answering questions appropriately Continue Aricept 10 mg p.o. nightly (7) Hypertension: Plan: Blood pressure well controlled to slightly low Hold hydrochlorothiazide due to low normal blood pressures and diarrhea-avoid dehydration Consider discontinuing this agent on discharge as patient is experiencing frequent urination Hold home potassium chloride while off hydrochlorothiazide Continue lisinopril Continue to monitor (8) Anxiety: Plan: Chronic. Continue escitalopram Plan: DVT prophylaxis-add Lovenox Disposition-continued stay on medical/surgical floor until diarrhea improves, then rehab placement Admission and Anticipated Discharge Date Admission Date: June 13, 2021 Subjective Patient has had several loose stools today, nonbloody. No abdominal pain unless pushed upon. No chest pain or shortness of breath. [place] a little bit lightheaded earlier but now feels fine. Is been on bed to chair. She is eating. Review of Systems Review of Systems: All systems reviewed & are unremarkable except as noted in HPI & below Physical Exam Constitutional: WD/WN, vitals as above Eyes: + anicteric sclerae Neck: trachea midline, no thyromegaly Respiratory: normal respiratory effort, lungs clear to auscultation Cardiovascular: RRR, no murmur, no edema Chest (Breasts): Chest: normal inspection of chest Gastrointestinal (Abdomen): Inspection/Auscultation: abdomen normal to inspection and normal bowel sounds; abdomen not distended Percussion/Palpation: + abdomen tender (Mild in lower abdomen without guarding or rebound tenderness) and abdomen soft Musculoskeletal: Extremities: extremities normal to inspection; no cyanosis and no clubbing Skin: no rashes, warm and dry Neurologic: moves all extremities and awake; no focal motor deficits Psychiatric: A+Ox3, euthymic affect Lymphatic: no lymphedema Results & Data Results & Data ([facility]) Vital Signs (Past 12 Hours) Vital Signs Temp Pulse Resp BP Pulse Ox 06/14/21 15:00 36.9 C 76 17 99/63 L 97 06/14/21 07:19 37.1 C 73 16 122/72 96 Laboratory Results 06/14/21 06/14/21 06/14/21 Range/Units 16:46 15:14 15:14 WBC (4.8-10.8) K/uL RBC (4.2-5.4) M/uL Hgb (12.0-16.0) g/dL Hct (37-47) % MCV (80-100) fL MCH (25-34) pg MCHC (32-36) g/dL RDW Std Deviation (36.4-46.3) fL RDW Coeff of Abbie (11.5-14.5) % Plt Count (130-400) K/uL MPV (7.4-10.4) fL Immature Gran % (Auto) % Neut % (Auto) % Lymph % (Auto) % [place] % (Auto) % Eos % (Auto) % Baso % (Auto) % Neut # (Auto) (1.4-6.5) K/uL Lymph # (Auto) (1.2-3.4) K/uL [place] # (Auto) (0.11-0.59) K/uL Eos # (Auto) (0-0.5) K/uL Baso # (Auto) (0-0.2) K/uL Immature Gran # (Auto) (0.00-0.02) K/uL Sodium (136-145) mmol/L Potassium (3.5-5.1) mmol/L Chloride (98-107) mmol/L Carbon Dioxide (21-32) mmol/L Anion Gap (3-11) BUN (7-18) mg/dl Creatinine (0.6-1.2) mg/dl Est Cr Clr Drug Dosing ml/min Est GFR ( Amer) ml/min Est GFR (Non-Af Amer) ml/min BUN/Creatinine Ratio (10-20) Glucose (70-99) mg/dl POC Glucose 250 H 306 H* 305 H* (70-99) mg/dl Calcium (8.5-10.1) mg/dl Phosphorus (2.5-4.9) mg/dl Total Bilirubin (0.2-1) mg/dl Direct Bilirubin (0-0.2) mg/dl AST (15-37) U/L ALT (12-78) U/L Alkaline Phosphatase (45-117) U/L Total Protein (6.4-8.2) gm/dl Albumin (3.4-5.0) gm/dl Stl C. diff Tox B Gene (Neg) Stl C.difficile Tox A&B (Negative) COVID-19 Eval Order SARS-CoV-2 (PCR) (Negative) 06/14/21 06/14/21 06/14/21 Range/Units 15:13 12:20 12:20 WBC (4.8-10.8) K/uL RBC (4.2-5.4) M/uL Hgb (12.0-16.0) g/dL Hct (37-47) % MCV (80-100) fL MCH (25-34) pg MCHC (32-36) g/dL RDW Std Deviation (36.4-46.3) fL RDW Coeff of Abbie (11.5-14.5) % Plt Count (130-400) K/uL MPV (7.4-10.4) fL Immature Gran % (Auto) % Neut % (Auto) % Lymph % (Auto) % [place] % (Auto) % Eos % (Auto) % Baso % (Auto) % Neut # (Auto) (1.4-6.5) K/uL Lymph # (Auto) (1.2-3.4) K/uL [place] # (Auto) (0.11-0.59) K/uL Eos # (Auto) (0-0.5) K/uL Baso # (Auto) (0-0.2) K/uL Immature Gran # (Auto) (0.00-0.02) K/uL Sodium (136-145) mmol/L Potassium (3.5-5.1) mmol/L Chloride (98-107) mmol/L Carbon Dioxide (21-32) mmol/L Anion Gap (3-11) BUN (7-18) mg/dl Creatinine (0.6-1.2) mg/dl Est Cr Clr Drug Dosing ml/min Est GFR ( Amer) ml/min Est GFR (Non-Af Amer) ml/min BUN/Creatinine Ratio (10-20) Glucose (70-99) mg/dl POC Glucose 326 H* 315 H* 373 H* (70-99) mg/dl Calcium (8.5-10.1) mg/dl Phosphorus (2.5-4.9) mg/dl Total Bilirubin (0.2-1) mg/dl Direct Bilirubin (0-0.2) mg/dl AST (15-37) U/L ALT (12-78) U/L Alkaline Phosphatase (45-117) U/L Total Protein (6.4-8.2) gm/dl Albumin (3.4-5.0) gm/dl Stl C. diff Tox B Gene (Neg) Stl C.difficile Tox A&B (Negative) COVID-19 Eval Order SARS-CoV-2 (PCR) (Negative) 06/14/21 06/14/21 06/14/21 Range/Units 12:19 08:20 07:30 WBC (4.8-10.8) K/uL RBC (4.2-5.4) M/uL Hgb (12.0-16.0) g/dL Hct (37-47) % MCV (80-100) fL MCH (25-34) pg MCHC (32-36) g/dL RDW Std Deviation (36.4-46.3) fL RDW Coeff of Abbie (11.5-14.5) % Plt Count (130-400) K/uL MPV (7.4-10.4) fL Immature Gran % (Auto) % Neut % (Auto) % Lymph % (Auto) % [place] % (Auto) % Eos % (Auto) % Baso % (Auto) % Neut # (Auto) (1.4-6.5) K/uL Lymph # (Auto) (1.2-3.4) K/uL [place] # (Auto) (0.11-0.59) K/uL Eos # (Auto) (0-0.5) K/uL Baso # (Auto) (0-0.2) K/uL Immature Gran # (Auto) (0.00-0.02) K/uL Sodium (136-145) mmol/L Potassium (3.5-5.1) mmol/L Chloride (98-107) mmol/L Carbon Dioxide (21-32) mmol/L Anion Gap (3-11) BUN (7-18) mg/dl Creatinine (0.6-1.2) mg/dl Est Cr Clr Drug Dosing ml/min Est GFR ( Amer) ml/min Est GFR (Non-Af Amer) ml/min BUN/Creatinine Ratio (10-20) Glucose (70-99) mg/dl POC Glucose 345 H* 256 H (70-99) mg/dl Calcium (8.5-10.1) mg/dl Phosphorus (2.5-4.9) mg/dl Total Bilirubin (0.2-1) mg/dl Direct Bilirubin (0-0.2) mg/dl AST (15-37) U/L ALT (12-78) U/L Alkaline Phosphatase (45-117) U/L Total Protein (6.4-8.2) gm/dl Albumin (3.4-5.0) gm/dl Stl C. diff Tox B Gene Positive Cdiff Gene H (Neg) Stl C.difficile Tox A&B Positive Cdiff Toxin A* (Negative) COVID-19 Eval Order SARS-CoV-2 (PCR) (Negative) 06/14/21 06/14/21 06/14/21 Range/Units 06:18 06:18 05:48 WBC 16.88 H (4.8-10.8) K/uL RBC 4.45 (4.2-5.4) M/uL Hgb 13.9 (12.0-16.0) g/dL Hct 41.5 (37-47) % MCV 93.3 (80-100) fL MCH 31.2 (25-34) pg MCHC 33.5 (32-36) g/dL RDW Std Deviation 46.7 H (36.4-46.3) fL RDW Coeff of Abbie 13.5 (11.5-14.5) % Plt Count 276 (130-400) K/uL MPV 10.2 (7.4-10.4) fL Immature Gran % (Auto) 0.2 % Neut % (Auto) 75.5 % Lymph % (Auto) 17.0 % [place] % (Auto) 6.7 % Eos % (Auto) 0.5 % Baso % (Auto) 0.1 % Neut # (Auto) 12.75 H (1.4-6.5) K/uL Lymph # (Auto) 2.87 (1.2-3.4) K/uL [place] # (Auto) 1.13 H (0.11-0.59) K/uL Eos # (Auto) 0.08 (0-0.5) K/uL Baso # (Auto) 0.02 (0-0.2) K/uL Immature Gran # (Auto) 0.03 H (0.00-0.02) K/uL Sodium 138 (136-145) mmol/L Potassium 3.8 (3.5-5.1) mmol/L Chloride 104 (98-107) mmol/L Carbon Dioxide 29 (21-32) mmol/L Anion Gap 5.0 (3-11) BUN 16 (7-18) mg/dl Creatinine 0.61 (0.6-1.2) mg/dl Est Cr Clr Drug Dosing 55.2 ml/min Est GFR ( Amer) 98.5 ml/min Est GFR (Non-Af Amer) 85.0 ml/min BUN/Creatinine Ratio 25.7 H (10-20) Glucose 81 (70-99) mg/dl POC Glucose 92 (70-99) mg/dl Calcium 9.3 (8.5-10.1) mg/dl Phosphorus (2.5-4.9) mg/dl Total Bilirubin 1.0 (0.2-1) mg/dl Direct Bilirubin 0.3 H (0-0.2) mg/dl AST 11 L (15-37) U/L ALT 15 (12-78) U/L Alkaline Phosphatase 83 (45-117) U/L Total Protein 6.6 (6.4-8.2) gm/dl Albumin 3.0 L (3.4-5.0) gm/dl Stl C. diff Tox B Gene (Neg) Stl C.difficile Tox A&B (Negative) COVID-19 Eval Order SARS-CoV-2 (PCR) (Negative) 06/14/21 06/13/21 06/13/21 Range/Units 02:39 21:30 21:30 WBC (4.8-10.8) K/uL RBC (4.2-5.4) M/uL Hgb (12.0-16.0) g/dL Hct (37-47) % MCV (80-100) fL MCH (25-34) pg MCHC (32-36) g/dL RDW Std Deviation (36.4-46.3) fL RDW Coeff of Abbie (11.5-14.5) % Plt Count (130-400) K/uL MPV (7.4-10.4) fL Immature Gran % (Auto) % Neut % (Auto) % Lymph % (Auto) % [place] % (Auto) % Eos % (Auto) % Baso % (Auto) % Neut # (Auto) (1.4-6.5) K/uL Lymph # (Auto) (1.2-3.4) K/uL [place] # (Auto) (0.11-0.59) K/uL Eos # (Auto) (0-0.5) K/uL Baso # (Auto) (0-0.2) K/uL Immature Gran # (Auto) (0.00-0.02) K/uL Sodium (136-145) mmol/L Potassium (3.5-5.1) mmol/L Chloride (98-107) mmol/L Carbon Dioxide (21-32) mmol/L Anion Gap (3-11) BUN (7-18) mg/dl Creatinine (0.6-1.2) mg/dl Est Cr Clr Drug Dosing ml/min Est GFR ( Amer) ml/min Est GFR (Non-Af Amer) ml/min BUN/Creatinine Ratio (10-20) Glucose (70-99) mg/dl POC Glucose 137 H (70-99) mg/dl Calcium (8.5-10.1) mg/dl Phosphorus (2.5-4.9) mg/dl Total Bilirubin (0.2-1) mg/dl Direct Bilirubin (0-0.2) mg/dl AST (15-37) U/L ALT (12-78) U/L Alkaline Phosphatase (45-117) U/L Total Protein (6.4-8.2) gm/dl Albumin (3.4-5.0) gm/dl Stl C. diff Tox B Gene (Neg) Stl C.difficile Tox A&B (Negative) COVID-19 Eval Order Covid19 at [facility] SARS-CoV-2 (PCR) NEGATIVE (Negative) 06/13/21 06/13/21 06/13/21 Range/Units 20:29 19:37 15:34 WBC (4.8-10.8) K/uL RBC (4.2-5.4) M/uL Hgb (12.0-16.0) g/dL Hct (37-47) % MCV (80-100) fL MCH (25-34) pg MCHC (32-36) g/dL RDW Std Deviation (36.4-46.3) fL RDW Coeff of Abbie (11.5-14.5) % Plt Count (130-400) K/uL MPV (7.4-10.4) fL Immature Gran % (Auto) % Neut % (Auto) % Lymph % (Auto) % [place] % (Auto) % Eos % (Auto) % Baso % (Auto) % Neut # (Auto) (1.4-6.5) K/uL Lymph # (Auto) (1.2-3.4) K/uL [place] # (Auto) (0.11-0.59) K/uL Eos # (Auto) (0-0.5) K/uL Baso # (Auto) (0-0.2) K/uL Immature Gran # (Auto) (0.00-0.02) K/uL Sodium (136-145) mmol/L Potassium (3.5-5.1) mmol/L Chloride (98-107) mmol/L Carbon Dioxide (21-32) mmol/L Anion Gap (3-11) BUN (7-18) mg/dl Creatinine (0.6-1.2) mg/dl Est Cr Clr Drug Dosing ml/min Est GFR ( Amer) ml/min Est GFR (Non-Af Amer) ml/min BUN/Creatinine Ratio (10-20) Glucose (70-99) mg/dl POC Glucose 97 67 L* (70-99) mg/dl Calcium (8.5-10.1) mg/dl Phosphorus 4.6 (2.5-4.9) mg/dl Total Bilirubin (0.2-1) mg/dl Direct Bilirubin (0-0.2) mg/dl AST (15-37) U/L ALT (12-78) U/L Alkaline Phosphatase (45-117) U/L Total Protein (6.4-8.2) gm/dl Albumin (3.4-5.0) gm/dl Stl C. diff Tox B Gene (Neg) Stl C.difficile Tox A&B (Negative) COVID-19 Eval Order SARS-CoV-2 (PCR) (Negative) PG Care Time/CCT Total # of Minutes Spent Total Time Spent with Patient: Total time spent is greater than 50% in coordination of care (as documented) at patient's floor/unit and/or counseling patient: Coding Level of Care Code 31674 Subseq Hosp Care Lvl 3 Diagnoses Hypoglycemia E16.2 Urinary frequency R35.0 Ambulatory dysfunction R26.2 Mild cognitive impairment G31.84 Hypertension I10 Diabetes type 2, uncontrolled E11.65 Anxiety F41.9 C. difficile diarrhea A04.72
[2021-06-14] MEDS ORDERED: cefTRIAXone SODIUM 1,000 MG in DEXTROSE 5% 50 ML IV SCH (18:00)
[2021-06-14] MEDS: DONEPEZIL HCL 10 MG TAB PO SCH (21:37)
[2021-06-15] MEDS: RASPBERRY SYRUP 5 ML UDP PO SCH ×4 (06:30→23:54)
[2021-06-15] MEDS: VANCOMYCIN HCL 125 MG/2.5ML SOLN PO SCH ×4 (06:30→23:54)
[2021-06-15 08:36] LABS: Basophils # (auto) 0.03 K/uL (0-0.2); Basophils % (auto) 0.2 %; Eosinophils % (auto) 0.6 %; Hematocrit (blood only) 37.2 % (37-47); Immature Granulocytes # (auto) 0.06 K/uL (0.00-0.02); Immature Granulocytes % (auto) 0.4 %; Lymphocytes # (auto) 3.33 K/uL (1.2-3.4); Lymphocytes % (auto) 20.2 %; Mean Corpuscular Hemoglobin 31.6 pg (25-34); Mean Corpuscular Hgb Conc 34.9 g/dL (32-36); Mean Corpuscular Volume 90.3 fL (80-100); Mean Platelet Volume 10.3 fL (7.4-10.4); Monocytes # (auto) 1.05 K/uL (0.11-0.59); Monocytes % (auto) 6.4 %; Neutrophils # (auto) 11.95 K/uL (1.4-6.5); Neutrophils % (auto) 72.2 %; Platelet Count 260 K/uL (130-400); RDW Coefficient of Variation 13.3 % (11.5-14.5); RDW Standard Deviation 43.8 fL (36.4-46.3); Red Blood Count 4.12 M/uL (4.2-5.4); White Blood Count 16.52 K/uL (4.8-10.8)
[2021-06-15 08:55] LABS: Calcium 8.6 mg/dl (8.5-10.1); Creatinine Clr Calc Pharmacy 33.9 ml/min; Est GFR (African American) 75.5 ml/min; Est GFR (Non-African American) 65.2 ml/min; Magnesium 1.6 mg/dl (1.8-2.4); Potassium 3.6 mmol/L (3.5-5.1)
[2021-06-15] MEDS: ENOXAPARIN INJ 30 MG/0.3 ML SYR SQ SCH (09:05)
[2021-06-15] MEDS: SIMVASTATIN 20 MG TAB PO SCH (09:05)
[2021-06-15] MEDS: lisinopril 10 MG TAB PO SCH (09:05)
[2021-06-15] MEDS: ESCITALOPRAM OXALATE 10 MG TAB PO SCH (09:05)
[2021-06-15] MEDS: INSULIN ASPART 100 UNITS/ML 3 ML PEN SC SCH ×4 (09:06→20:38)
[2021-06-15] MEDS: INSULIN GLARGINE SOLOSTAR 100 UNITS/ML 3 ML PEN SC SCH ×2 (09:06→20:39)
[2021-06-15] MEDS ORDERED: INSULIN GLARGINE SOLOSTAR 100 UNITS/ML 3 ML PEN SC ONE (09:12)
[2021-06-15] MEDS: MAGNESIUM SULFATE / D5W 1 GM/100 ML BAG IV SCH ×2 (10:15→12:05)
--- NOTE | 2021-06-15 16:51 | Electrocardiogram Report ---
Test Reason : Blood Pressure : / mmHG Vent. Rate : 072 BPM Atrial Rate : 072 BPM P-R Int : 158 ms QRS Dur : 072 ms QT Int : 412 ms P-R-T Axes : 015 -07 028 degrees QTc Int : 451 ms Poor data quality, interpretation may be adversely affected Normal sinus rhythm Inferior infarct , age undetermined Cannot rule out Anterior infarct (cited on or before 13-JUN-2021) Abnormal ECG When compared with ECG of 02-JUN-2021 16:57, Nonspecific T wave abnormality no longer evident in Anterolateral leads Confirmed by Eulogio Guadalupe ([id number]) on 06/15/2021 4:51:05 PM Referred By: REFERRED SELF Confirmed By:Eulogio Guadalupe
--- NOTE | 2021-06-15 20:03 | Hospitalist Progress Note ---
Date of Service June 15, 2021 Assessment & Plan (1) Hypoglycemia: Plan: 81-year-old female with multiple medical problems presenting with hypoglycemia. Blood sugar 40 prior to arrival. Now with hyperglycemia after holding of home insulin. Patient eating and feeling better. Uncertain if hypoglycemia is secondary to medication effectspatient is on insulin, poor oral intake, infection with C. difficile diarrhea. Hyperglycemia now improve with increased doses of insulin Last hemoglobin A1c on 06/03/21 = 9.6-uncontrolled increase Lantus to 15 units SQ twice daily tighten down NovoLog supplemental insulin to correction factor of 25, carb coverage of 1:12 (2) C. difficile diarrhea: Plan: With multiple episodes of loose stool-tested positive for C. difficile Leukocytosis persists at 16, afebrile Some lower abdominal pain but no peritoneal signs cont vancomycin 125 mg p.o. 4 times daily x10-day course-last day will be 06/23/21 (3) Diabetes type 2, uncontrolled: Plan: Patient presenting with hypoglycemia as described above and now with hyperglycemia Plan as above (4) Urinary frequency: Plan: Daughter endorses increased urinary frequency. UA appears contaminated with epithelial cells Urine culture pending but would not treat for this as it is contaminated Discontinued ceftriaxone started on admission especially in the setting of active C. difficile colitis/diarrhea (5) Ambulatory dysfunction: Plan: Daughter states the patient is having a difficult time ambulating at home. Reports that she is unsteady on her feet and requires full assistance to get up from bed. Nursing and ER states the patient was able to ambulate to the bathroom with very minimal assistance. Daughter seems to be having a difficult time at this point caring for her mother at home. PT/OT evaluations. Patient's daughter may need additional help at home, home services versus rehab placement Patient now thinks she will go home with home health-Case Man involved (6) Mild cognitive impairment: Plan: Chronic. Patient presently oriented and is answering questions appropriately Continue Aricept 10 mg p.o. nightly (7) Hypertension: Plan: Blood pressure well controlled to slightly low continue to hold hydrochlorothiazide due to low normal blood pressures and dhaval rrhea-avoid dehydration Consider discontinuing this agent on discharge as patient is experiencing frequent urination Hold home potassium chloride while off hydrochlorothiazide Continue lisinopril Continue to monitor (8) Anxiety: Plan: Chronic. Continue escitalopram (9) Hypomagnesemia: Plan: Mag low at 1.6 replace with IV mag sulfate follow level in AM Plan: DVT prophylaxis- Lovenox Disposition-continued stay on medical/surgical floor until diarrhea improves Admission and Anticipated Discharge Date Admission Date: June 13, 2021 Subjective Pt still having some diarrhea today, some mild abd pain at times. Did not eat dinner. Now told welfare case worker she wants to go home with daughter and home health, but not feeling up for it just yet of course. Review of Systems Review of Systems: All systems reviewed & are unremarkable except as noted in HPI & below Physical Exam Constitutional: WD/WN, vitals as above Eyes: + anicteric sclerae Neck: trachea midline, no thyromegaly Respiratory: normal respiratory effort, lungs clear to auscultation Cardiovascular: RRR, no murmur, no edema Chest (Breasts): Chest: normal inspection of chest Gastrointestinal (Abdomen): Inspection/Auscultation: abdomen normal to inspection and normal bowel sounds; abdomen not distended Percussion/Palpation: + abdomen tender (Mild in lower abdomen without guarding or rebound tenderness) and abdomen soft Musculoskeletal: Extremities: extremities normal to inspection; no cyanosis and no clubbing Skin: no rashes, warm and dry Neurologic: moves all extremities and awake; no focal motor deficits Psychiatric: A+Ox3, euthymic affect Lymphatic: no lymphedema Results & Data Results & Data ([facility]) Vital Signs (Past 12 Hours) Vital Signs Temp Pulse Resp BP Pulse Ox 06/15/21 15:13 36.7 C 59 L 16 106/63 98 Laboratory Results 06/15/21 06/15/21 06/15/21 Range/Units 17:10 12:10 09:02 WBC (4.8-10.8) K/uL RBC (4.2-5.4) M/uL Hgb (12.0-16.0) g/dL Hct (37-47) % MCV (80-100) fL MCH (25-34) pg MCHC (32-36) g/dL RDW Std Deviation (36.4-46.3) fL RDW Coeff of Abbie (11.5-14.5) % Plt Count (130-400) K/uL MPV (7.4-10.4) fL Immature Gran % (Auto) % Neut % (Auto) % Lymph % (Auto) % [place] % (Auto) % Eos % (Auto) % Baso % (Auto) % Neut # (Auto) (1.4-6.5) K/uL Lymph # (Auto) (1.2-3.4) K/uL [place] # (Auto) (0.11-0.59) K/uL Eos # (Auto) (0-0.5) K/uL Baso # (Auto) (0-0.2) K/uL Immature Gran # (Auto) (0.00-0.02) K/uL Sodium (136-145) mmol/L Potassium (3.5-5.1) mmol/L Chloride (98-107) mmol/L Carbon Dioxide (21-32) mmol/L Anion Gap (3-11) BUN (7-18) mg/dl Creatinine (0.6-1.2) mg/dl Est Cr Clr Drug Dosing ml/min Est GFR ( Amer) ml/min Est GFR (Non-Af Amer) ml/min BUN/Creatinine Ratio (10-20) Glucose (70-99) mg/dl POC Glucose 179 H 262 H 251 H (70-99) mg/dl Calcium (8.5-10.1) mg/dl Magnesium (1.8-2.4) mg/dl 06/15/21 06/15/21 06/14/21 Range/Units 08:23 08:23 21:03 WBC 16.52 H (4.8-10.8) K/uL RBC 4.12 L (4.2-5.4) M/uL Hgb 13.0 (12.0-16.0) g/dL Hct 37.2 (37-47) % MCV 90.3 (80-100) fL MCH 31.6 (25-34) pg MCHC 34.9 (32-36) g/dL RDW Std Deviation 43.8 (36.4-46.3) fL RDW Coeff of Abbie 13.3 (11.5-14.5) % Plt Count 260 (130-400) K/uL MPV 10.3 (7.4-10.4) fL Immature Gran % (Auto) 0.4 % Neut % (Auto) 72.2 % Lymph % (Auto) 20.2 % [place] % (Auto) 6.4 % Eos % (Auto) 0.6 % Baso % (Auto) 0.2 % Neut # (Auto) 11.95 H (1.4-6.5) K/uL Lymph # (Auto) 3.33 (1.2-3.4) K/uL [place] # (Auto) 1.05 H (0.11-0.59) K/uL Eos # (Auto) 0.10 (0-0.5) K/uL Baso # (Auto) 0.03 (0-0.2) K/uL Immature Gran # (Auto) 0.06 H (0.00-0.02) K/uL Sodium 133 L (136-145) mmol/L Potassium 3.6 (3.5-5.1) mmol/L Chloride 102 (98-107) mmol/L Carbon Dioxide 23 (21-32) mmol/L Anion Gap 8.0 (3-11) BUN 21 H (7-18) mg/dl Creatinine 0.84 (0.6-1.2) mg/dl Est Cr Clr Drug Dosing 33.9 ml/min Est GFR ( Amer) 75.5 ml/min Est GFR (Non-Af Amer) 65.2 ml/min BUN/Creatinine Ratio 25.0 H (10-20) Glucose 236 H (70-99) mg/dl POC Glucose 288 H (70-99) mg/dl Calcium 8.6 (8.5-10.1) mg/dl Magnesium 1.6 L (1.8-2.4) mg/dl 06/14/21 Range/Units 21:00 WBC (4.8-10.8) K/uL RBC (4.2-5.4) M/uL Hgb (12.0-16.0) g/dL Hct (37-47) % MCV (80-100) fL MCH (25-34) pg MCHC (32-36) g/dL RDW Std Deviation (36.4-46.3) fL RDW Coeff of Abbie (11.5-14.5) % Plt Count (130-400) K/uL MPV (7.4-10.4) fL Immature Gran % (Auto) % Neut % (Auto) % Lymph % (Auto) % [place] % (Auto) % Eos % (Auto) % Baso % (Auto) % Neut # (Auto) (1.4-6.5) K/uL Lymph # (Auto) (1.2-3.4) K/uL [place] # (Auto) (0.11-0.59) K/uL Eos # (Auto) (0-0.5) K/uL Baso # (Auto) (0-0.2) K/uL Immature Gran # (Auto) (0.00-0.02) K/uL Sodium (136-145) mmol/L Potassium (3.5-5.1) mmol/L Chloride (98-107) mmol/L Carbon Dioxide (21-32) mmol/L Anion Gap (3-11) BUN (7-18) mg/dl Creatinine (0.6-1.2) mg/dl Est Cr Clr Drug Dosing ml/min Est GFR ( Amer) ml/min Est GFR (Non-Af Amer) ml/min BUN/Creatinine Ratio (10-20) Glucose (70-99) mg/dl POC Glucose 323 H* (70-99) mg/dl Calcium (8.5-10.1) mg/dl Magnesium (1.8-2.4) mg/dl PG Care Time/CCT Total # of Minutes Spent Total Time Spent with Patient: Total time spent is greater than 50% in coordination of care (as documented) at patient's floor/unit and/or counseling patient: Coding Level of Care Code 35795 Subseq Hosp Care Lvl 2 Diagnoses Hypoglycemia E16.2 C. difficile diarrhea A04.72 Diabetes type 2, uncontrolled E11.65 Urinary frequency R35.0 Ambulatory dysfunction R26.2 Mild cognitive impairment G31.84 Hypertension I10 Anxiety F41.9 Hypomagnesemia E83.42
[2021-06-15] MEDS: DONEPEZIL HCL 10 MG TAB PO SCH (20:37)
[2021-06-16] MEDS: VANCOMYCIN HCL 125 MG/2.5ML SOLN PO SCH ×4 (05:03→23:06)
[2021-06-16] MEDS: RASPBERRY SYRUP 5 ML UDP PO SCH ×4 (05:03→23:06)
[2021-06-16 06:25] LABS: Basophils # (auto) 0.02 K/uL (0-0.2); Basophils % (auto) 0.1 %; Eosinophils # (auto) 0.12 K/uL (0-0.5); Eosinophils % (auto) 0.8 %; Hematocrit (blood only) 36.8 % (37-47); Hemoglobin 12.5 g/dL (12.0-16.0); Immature Granulocytes # (auto) 0.05 K/uL (0.00-0.02); Immature Granulocytes % (auto) 0.3 %; Lymphocytes % (auto) 25.8 %; Mean Corpuscular Hemoglobin 31.3 pg (25-34); Mean Platelet Volume 10.6 fL (7.4-10.4); Monocytes # (auto) 1.13 K/uL (0.11-0.59); Monocytes % (auto) 7.7 %; Neutrophils # (auto) 9.62 K/uL (1.4-6.5); Neutrophils % (auto) 65.3 %; Platelet Count 257 K/uL (130-400); RDW Coefficient of Variation 13.4 % (11.5-14.5); White Blood Count 14.74 K/uL (4.8-10.8)
[2021-06-16 06:55] LABS: Potassium 3.3 mmol/L (3.5-5.1)
[2021-06-16 07:06] LABS: Creatinine Clr Calc Pharmacy 43.2 ml/min; Est GFR (Non-African American) 82.8 ml/min
[2021-06-16] MEDS: lisinopril 10 MG TAB PO SCH (10:03)
[2021-06-16] MEDS: ESCITALOPRAM OXALATE 10 MG TAB PO SCH (10:03)
[2021-06-16] MEDS: SIMVASTATIN 20 MG TAB PO SCH (10:04)
[2021-06-16] MEDS: ENOXAPARIN INJ 30 MG/0.3 ML SYR SQ SCH (10:04)
[2021-06-16] MEDS: INSULIN ASPART 100 UNITS/ML 3 ML PEN SC SCH ×4 (10:08→20:43)
[2021-06-16] MEDS: INSULIN GLARGINE SOLOSTAR 100 UNITS/ML 3 ML PEN SC SCH ×2 (10:08→20:43)
[2021-06-16] MEDS ORDERED: POTASSIUM CHLORIDE CRTAB 20 MEQ TABCR PO STA (11:10)
--- NOTE | 2021-06-16 16:39 | Hospitalist Progress Note ---
Date of Service June 16, 2021 Assessment & Plan (1) Hypoglycemia: Plan: 81-year-old female with multiple medical problems presenting with hypoglycemia. Blood sugar 40 prior to arrival. Now with hyperglycemia after holding of home insulin. Patient eating and feeling better. Uncertain if hypoglycemia is secondary to medication effectspatient is on high dose of insulin at home of 80 units, poor oral intake, infection with C. difficile diarrhea. Hyperglycemia now improve with increased doses of insulin Last hemoglobin A1c on 06/03/21 = 9.6-uncontrolled increase Lantus again to 20 units SQ twice daily tighten down NovoLog supplemental insulin to correction factor of 20, carb coverage of 1:12 lower range of glucose goal to 100-140 (2) C. difficile diarrhea: Plan: With multiple episodes of loose stool-tested positive for C. difficile Leukocytosis now improving to 14, afebrile, diarrhea much improved no further abdominal pain cont vancomycin 125 mg p.o. 4 times daily x10-day course-last day will be 06/23/21 follow CBC, BMP (3) Diabetes type 2, uncontrolled: Plan: Patient presenting with hypoglycemia as described above and now with hyperglycemia Plan as above (4) Urinary frequency: Plan: Daughter endorses increased urinary frequency. UA appears contaminated with epithelial cells Urine culture mixed bharat as expected with epi contamination Discontinued ceftriaxone started on admission especially in the setting of active C. difficile colitis/diarrhea (5) Ambulatory dysfunction: Plan: Daughter states the patient is having a difficult time ambulating at home. Reports that she is unsteady on her feet and requires full assistance to get up from bed. Nursing and ER states the patient was able to ambulate to the bathroom with very minimal assistance. Daughter seems to be having a difficult time at this point caring for her mother at home. PT/OT evaluations. Patient's daughter may need additional help at home, home services versus rehab placement Patient now thinks she will go home with home health-Case Man involved (6) Mild cognitive impairment: Plan: Chronic. Patient presently oriented and is answering questions appropriately Continue Aricept 10 mg p.o. nightly (7) Hypertension: Plan: Blood pressure well controlled to slightly low continue to hold hydrochlorothiazide due to low normal blood pressures and diarrhea-avoid dehydration Consider discontinuing this agent on discharge as patient is experiencing frequent urination Hold home potassium chloride while off hydrochlorothiazide Continue lisinopril Continue to monitor (8) Anxiety: Plan: Chronic. Continue escitalopram (9) Hypomagnesemia: Plan: replaced and resolved (10) Numbness of right hand: Plan: suspect CTS, not stroke could use wrist brace after discharge (11) Hypokalemia: Plan: replace with po KCl follow BMP in AM Plan: DVT prophylaxis- Lovenox Disposition-continued stay on medical/surgical floor until diarrhea improves Admission and Anticipated Discharge Date Admission Date: June 15, 2021 Subjective Pt reports no further diarrhea today, no abd pain. Can't remember what she ate today but knows she ate something. Denies any other problems. Doesn't think she's ready to go home yet. Still feels a bit weak. Daughter called in and reports pt having right hand numbness. Pt tells me this has been going on for a while. Review of Systems Review of Systems: All systems reviewed & are unremarkable except as noted in HPI & below Physical Exam Constitutional: WD/WN, vitals as above Eyes: + anicteric sclerae Neck: trachea midline, no thyromegaly Respiratory: normal respiratory effort, lungs clear to auscultation Cardiovascular: RRR, no murmur, no edema Chest (Breasts): Chest: normal inspection of chest Gastrointestinal (Abdomen): Inspection/Auscultation: abdomen normal to inspection and normal bowel sounds; abdomen not distended Musculoskeletal: Extremities: extremities normal to inspection; no cyanosis and no clubbing Skin: no rashes, warm and dry Neurologic: moves all extremities and awake; no focal motor deficits (full strength in bilat UEs throughout) Motor/Sensory: + sensory deficit (to light touch in right hand,?whole hand vs thumb/1st/2nd/3rd fingers); no tremor +Tinel's sign right wrist Psychiatric: Orientation: alert, oriented to person, oriented to place and cooperative Lymphatic: no lymphedema Results & Data Results & Data ([facility]) Vital Signs (Past 12 Hours) Vital Signs Temp Pulse Resp BP Pulse Ox 06/16/21 15:45 36.8 C 65 16 103/58 L 96 06/16/21 07:21 36.6 C 61 20 110/65 97 Laboratory Results 06/16/21 06/16/21 06/16/21 Range/Units 12:16 08:30 05:44 WBC (4.8-10.8) K/uL RBC (4.2-5.4) M/uL Hgb (12.0-16.0) g/dL Hct (37-47) % MCV (80-100) fL MCH (25-34) pg MCHC (32-36) g/dL RDW Std Deviation (36.4-46.3) fL RDW Coeff of Abbie (11.5-14.5) % Plt Count (130-400) K/uL MPV (7.4-10.4) fL Immature Gran % (Auto) % Neut % (Auto) % Lymph % (Auto) % Floyd % (Auto) % Eos % (Auto) % Baso % (Auto) % Neut # (Auto) (1.4-6.5) K/uL Lymph # (Auto) (1.2-3.4) K/uL Floyd # (Auto) (0.11-0.59) K/uL Eos # (Auto) (0-0.5) K/uL Baso # (Auto) (0-0.2) K/uL Immature Gran # (Auto) (0.00-0.02) K/uL Sodium 136 (136-145) mmol/L Potassium 3.3 L (3.5-5.1) mmol/L Chloride 103 (98-107) mmol/L Carbon Dioxide 28 (21-32) mmol/L Anion Gap 5.0 (3-11) BUN 23 H (7-18) mg/dl Creatinine 0.66 (0.6-1.2) mg/dl Est Cr Clr Drug Dosing 43.2 ml/min Est GFR ( Amer) 96.0 ml/min Est GFR (Non-Af Amer) 82.8 ml/min BUN/Creatinine Ratio 35.0 H (10-20) Glucose 191 H (70-99) mg/dl POC Glucose 182 H 189 H (70-99) mg/dl Calcium 9.0 (8.5-10.1) mg/dl Magnesium 2.0 (1.8-2.4) mg/dl 06/16/21 06/15/21 06/15/21 Range/Units 05:44 20:36 17:10 WBC 14.74 H (4.8-10.8) K/uL RBC 4.00 L (4.2-5.4) M/uL Hgb 12.5 (12.0-16.0) g/dL Hct 36.8 L (37-47) % MCV 92.0 (80-100) fL MCH 31.3 (25-34) pg MCHC 34.0 (32-36) g/dL RDW Std Deviation 45.0 (36.4-46.3) fL RDW Coeff of Abbie 13.4 (11.5-14.5) % Plt Count 257 (130-400) K/uL MPV 10.6 H (7.4-10.4) fL Immature Gran % (Auto) 0.3 % Neut % (Auto) 65.3 % Lymph % (Auto) 25.8 % Floyd % (Auto) 7.7 % Eos % (Auto) 0.8 % Baso % (Auto) 0.1 % Neut # (Auto) 9.62 H (1.4-6.5) K/uL Lymph # (Auto) 3.80 H (1.2-3.4) K/uL Floyd # (Auto) 1.13 H (0.11-0.59) K/uL Eos # (Auto) 0.12 (0-0.5) K/uL Baso # (Auto) 0.02 (0-0.2) K/uL Immature Gran # (Auto) 0.05 H (0.00-0.02) K/uL Sodium (136-145) mmol/L Potassium (3.5-5.1) mmol/L Chloride (98-107) mmol/L Carbon Dioxide (21-32) mmol/L Anion Gap (3-11) BUN (7-18) mg/dl Creatinine (0.6-1.2) mg/dl Est Cr Clr Drug Dosing ml/min Est GFR ( Amer) ml/min Est GFR (Non-Af Amer) ml/min BUN/Creatinine Ratio (10-20) Glucose (70-99) mg/dl POC Glucose 145 H 179 H (70-99) mg/dl Calcium (8.5-10.1) mg/dl Magnesium (1.8-2.4) mg/dl PG Care Time/CCT Total # of Minutes Spent Total Time Spent with Patient: Total time spent is greater than 50% in coordination of care (as documented) at patient's floor/unit and/or counseling patient: Coding Level of Care Code 42793 Subseq Hosp Care Lvl 2 Diagnoses Hypoglycemia E16.2 C. difficile diarrhea A04.72 Diabetes type 2, uncontrolled E11.65 Urinary frequency R35.0 Ambulatory dysfunction R26.2 Mild cognitive impairment G31.84 Hypertension I10 Anxiety F41.9 Hypomagnesemia E83.42 Numbness of right hand R20.0 Hypokalemia E87.6
[2021-06-16] MEDS: DONEPEZIL HCL 10 MG TAB PO SCH (20:44)
[2021-06-17] MEDS: RASPBERRY SYRUP 5 ML UDP PO SCH ×4 (05:50→23:18)
[2021-06-17] MEDS: VANCOMYCIN HCL 125 MG/2.5ML SOLN PO SCH ×4 (05:50→23:18)
[2021-06-17 05:56] LABS: Basophils # (auto) 0.04 K/uL (0-0.2); Basophils % (auto) 0.4 %; Eosinophils # (auto) 0.09 K/uL (0-0.5); Eosinophils % (auto) 0.9 %; Hematocrit (blood only) 37.3 % (37-47); Hemoglobin 12.6 g/dL (12.0-16.0); Immature Granulocytes # (auto) 0.08 K/uL (0.00-0.02); Immature Granulocytes % (auto) 0.8 %; Lymphocytes # (auto) 4.54 K/uL (1.2-3.4); Lymphocytes % (auto) 42.9 %; Mean Corpuscular Hemoglobin 31.3 pg (25-34); Mean Corpuscular Hgb Conc 33.8 g/dL (32-36); Mean Corpuscular Volume 92.8 fL (80-100); Mean Platelet Volume 10.5 fL (7.4-10.4); Monocytes # (auto) 0.76 K/uL (0.11-0.59); Monocytes % (auto) 7.2 %; Neutrophils # (auto) 5.07 K/uL (1.4-6.5); Neutrophils % (auto) 47.8 %; Platelet Count 256 K/uL (130-400); RDW Coefficient of Variation 13.3 % (11.5-14.5); RDW Standard Deviation 45.4 fL (36.4-46.3); Red Blood Count 4.02 M/uL (4.2-5.4); White Blood Count 10.58 K/uL (4.8-10.8)
[2021-06-17 06:14] LABS: BUN Creatinine Ratio 25.2 (10-20); Creatinine Clr Calc Pharmacy 42.5 ml/min; Est GFR (African American) 95.5 ml/min; Est GFR (Non-African American) 82.4 ml/min; Magnesium 2.3 mg/dl (1.8-2.4); Potassium 3.7 mmol/L (3.5-5.1)
[2021-06-17] MEDS: lisinopril 10 MG TAB PO SCH (09:06)
[2021-06-17] MEDS: ENOXAPARIN INJ 30 MG/0.3 ML SYR SQ SCH (09:06)
[2021-06-17] MEDS: ESCITALOPRAM OXALATE 10 MG TAB PO SCH (09:06)
[2021-06-17] MEDS: SIMVASTATIN 20 MG TAB PO SCH (09:06)
[2021-06-17] MEDS: INSULIN ASPART 100 UNITS/ML 3 ML PEN SC SCH ×4 (09:07→20:33)
[2021-06-17] MEDS: INSULIN GLARGINE SOLOSTAR 100 UNITS/ML 3 ML PEN SC SCH ×2 (09:07→20:33)
--- NOTE | 2021-06-17 17:34 | Hospitalist Progress Note ---
Date of Service June 17, 2021 Assessment & Plan (1) Hypoglycemia: Plan: Blood sugar 40 prior to arrival. Then with hyperglycemia after holding of home insulin. Patient eating and feeling better. Hypoglycemia is secondary to medication effectspatient is on high dose of insulin at home of 80 units, poor oral intake, infection with C. difficile diarrhea. Hyperglycemia now improved with increased doses of insulin Last hemoglobin A1c on 06/03/21 = 9.6-uncontrolled Continue Lantus 20 units SQ twice daily Continue NovoLog supplemental insulin to correction factor of 20, carb coverage of 1:12 with range of glucose goal to 100-140 Will need significantly reduced Lantus dosing from home upon discharge (2) C. difficile diarrhea: Plan: With multiple episodes of loose stool-tested positive for C. difficile upon admission Leukocytosis now resolved, remains afebrile, no further diarrhea or abdominal pain cont vancomycin 125 mg p.o. 4 times daily x10-day course-last day will be 06/23/21 (3) Diabetes type 2, uncontrolled: Plan: Patient presenting with hypoglycemia as described above and now with hyperglycemia Plan as above (4) Urinary frequency: Plan: Daughter endorses increased urinary frequency. UA appears contaminated with epithelial cells Urine culture mixed bharat as expected with epi contamination Discontinued ceftriaxone started on admission especially in the setting of active C. difficile colitis/diarrhea (5) Ambulatory dysfunction: Plan: Daughter states the patient is having a difficult time ambulating at home. Reports that she is unsteady on her feet and requires full assistance to get up from bed. Nursing and ER states the patient was able to ambulate to the bathroom with very minimal assistance. Daughter seems to be having a difficult time at this point caring for her mother at home. PT/OT evaluations recommend either 24/7 care or acute rehab She has significantly reduced level of function even from prior admission 2 weeks ago -Patient and daughter both requesting rehab placement at this time due to significantly decreased mobility (6) Mild cognitive impairment: Plan: Chronic. Patient presently oriented and is answering questions appropriately Continue Aricept 10 mg p.o. nightly (7) Hypertension: Plan: Blood pressure well controlled to slightly low Discontinued hydrochlorothiazide due to low normal blood pressures and diarrhea- avoid dehydration Continue lisinopril Continue to monitor (8) Anxiety: Plan: Chronic. Continue escitalopram (9) Hypomagnesemia: Plan: replaced and resolved (10) Numbness of right hand: Plan: suspect CTS, not stroke could use wrist brace after discharge (11) Hypokalemia: Plan: replace with po KCl 20 mEq Plan: DVT prophylaxis- Lovenox Disposition-continued stay on medical/surgical floor, however is medically stable for discharge on Friday-needs referrals to rehab-consult placed to case management as original plan was to go home with home health Discussed her care with her daughter on the phone on 06/17 Admission and Anticipated Discharge Date Admission Date: June 15, 2021 Subjective Patient reports feeling better, is eating and drinking. She does not have any further diarrhea today as per nursing. Patient denies abdominal pain. She asked me what my name is 3 times while I was in there. Remains pleasantly confused. Review of Systems Review of Systems: All systems reviewed & are unremarkable except as noted in HPI & below Physical Exam Constitutional: WD/WN, vitals as above Eyes: + anicteric sclerae Neck: trachea midline, no thyromegaly Respiratory: normal respiratory effort, lungs clear to auscultation Cardiovascular: RRR, no murmur, no edema Chest (Breasts): Chest: normal inspection of chest Gastrointestinal (Abdomen): Inspection/Auscultation: abdomen normal to inspection and normal bowel sounds; abdomen not distended Musculoskeletal: Extremities: extremities normal to inspection; no cyanosis and no clubbing Skin: no rashes, warm and dry Neurologic: moves all extremities and awake Psychiatric: Orientation: alert, oriented to person, oriented to place and cooperative Lymphatic: no lymphedema Results & Data Results & Data ([facility]) Vital Signs (Past 12 Hours) Vital Signs Temp Pulse Resp BP Pulse Ox 06/17/21 15:28 36.9 C 66 16 109/64 96 06/17/21 07:29 37 C 58 L 16 128/68 96 Laboratory Results 06/17/21 05:34 06/17/21 05:34 PG Care Time/CCT Total # of Minutes Spent Total Time Spent with Patient: Total time spent is greater than 50% in coordination of care (as documented) at patient's floor/unit and/or counseling patient: Coding Level of Care Code 71607 Subseq Hosp Care Lvl 2 Diagnoses Hypoglycemia E16.2 C. difficile diarrhea A04.72 Diabetes type 2, uncontrolled E11.65 Urinary frequency R35.0 Ambulatory dysfunction R26.2 Mild cognitive impairment G31.84 Hypertension I10 Anxiety F41.9 Hypomagnesemia E83.42 Numbness of right hand R20.0 Hypokalemia E87.6
[2021-06-17] MEDS: DONEPEZIL HCL 10 MG TAB PO SCH (20:32)
[2021-06-18] MEDS: VANCOMYCIN HCL 125 MG/2.5ML SOLN PO SCH ×4 (05:55→23:34)
[2021-06-18] MEDS: RASPBERRY SYRUP 5 ML UDP PO SCH ×4 (05:55→23:34)
[2021-06-18] MEDS: SIMVASTATIN 20 MG TAB PO SCH (09:09)
[2021-06-18] MEDS: INSULIN ASPART 100 UNITS/ML 3 ML PEN SC SCH ×4 (09:11→20:56)
[2021-06-18] MEDS: INSULIN GLARGINE SOLOSTAR 100 UNITS/ML 3 ML PEN SC SCH ×2 (09:12→20:56)
[2021-06-18] MEDS: ESCITALOPRAM OXALATE 10 MG TAB PO SCH (09:13)
[2021-06-18] MEDS: lisinopril 10 MG TAB PO SCH (09:13)
[2021-06-18] MEDS: ENOXAPARIN INJ 30 MG/0.3 ML SYR SQ SCH (09:14)
--- NOTE | 2021-06-18 16:41 | Hospitalist Progress Note ---
Date of Service June 18, 2021 Assessment & Plan (1) Hypoglycemia: Plan: - Blood sugar 40 prior to arrival. Then with hyperglycemia after holding of home insulin; eating and feeling better - Suspect hypoglycemia was due to medication effects patient is on high dose of insulin at home of 80 units, poor oral intake, infection with C. difficile diarrhea; Hyperglycemia now improved with increased doses of insulin - A1c - 06/03 -- 9.6 - Continue Lantus 20 units SC BID and SSI - has only intermittently required additional 3-5 units with meals -- Reviewed childbirth educator not to consider reduction of 30% - Definitely would benefit from dosage reduction but will need to have some form of coverage given the 300+ readings and A1c however would not recommend stringent control (2) C. difficile diarrhea: Plan: - With multiple episodes of loose stool-tested positive for C. difficile upon admission - RESOLVING - Leukocytosis now resolved, remains afebrile, no further diarrhea or abdominal pain - Cont vancomycin 125 mg p.o. 4 times daily x10-day course-last day will be 06/23/21 (3) Diabetes type 2, uncontrolled: Plan: - Patient presenting with hypoglycemia as described above and now with hyperglycemia; Plan as above (4) Urinary frequency: Plan: - Daughter endorses increased urinary frequency. UA appears contaminated with epithelial cells - Urine culture mixed bharat as expected with epi contamination - Ceftriaxone started on admission but has been discontinued especially in the setting of active C. difficile colitis/diarrhea (5) Ambulatory dysfunction: Plan: - Daughter states the patient is having a difficult time ambulating at home. Reports that she is unsteady on her feet and requires full assistance to get up from bed. Nursing and ER states the patient was able to ambulate to the bathroom with very minimal assistance. Daughter seems to be having a difficult time at this point caring for her mother at home. PT/OT evaluations recommend either 24/7 care or acute rehab -- She has significantly reduced level of function even from prior admission 2 weeks ago - Patient and daughter both requesting rehab placement at this time due to significantly decreased mobility (6) Mild cognitive impairment: Plan: - Chronic. Patient presently oriented and is answering questions appropriately Continue Aricept 10 mg p.o. nightly (7) Hypertension: Plan: - Blood pressure well controlled to slightly low - Discontinued hydrochlorothiazide due to low normal blood pressures and diarrhea-avoid dehydration Continue lisinopril Continue to monitor (8) Anxiety: Plan: - Chronic. Continue escitalopram (9) Hypomagnesemia: Plan: - Replaced and resolved; in the setting of diarrhea (10) Numbness of right hand: Plan: - suspect CTS, not stroke - could use wrist brace after discharge (11) Hypokalemia: Plan: - replete as needed; monitor Plan: DVT prophylaxis- Lovenox Disposition- Referrals placed and awaiting insurance auth Admission and Anticipated Discharge Date Admission Date: June 15, 2021 Subjective Reports doing well today. Verbalizes no complaints. No longer having frequent bowel movements. Rehab referrals placed Review of Systems Review of Systems: REVIEW OF SYSTEMS General/Constitutional: Denies fever/chills, fatigue, weakness ENT: Denies visual changes, nasal drainage, sore throat Cardiovascular: Denies chest pain, palpitations, edema Respiratory: Denies cough, sputum, SOB, wheezing GI: Denies nausea, vomiting, abdominal pain, constipation, diarrhea : Denies dysuria Musculoskeletal: Denies joint/muscle aches Neurologic: Denies dizziness/lightheadedness Skin: Denies rash, itch Physical Exam Physical Exam: PHYSICAL EXAM General Appearance: WDWN in NAD HEENT: Head is normocephalic/atraumatic; Hearing grossly intact Neck: Supple; Trachea midline; Neg JVD Heart: RRR with no M/G/R Lungs: CTA in all lung connor bilaterally; Respirations unlabored; Neg accessory muscle use Abdomen: Soft, non-tender, non-distended; Positive BS x 4 quadrants; Neg organom egaly Extremities: Capillary refill < 2 seconds; Neg cyanosis or edema Neurological: Speech clear; Gross motor/sensory function intact; Neg focal neurologic deficits Psychiatric: Appropriate mood/affect Skin: Normal Color; Warm/Dry Results & Data Results & Data ([facility]) Vital Signs (Past 12 Hours) Vital Signs Temp Pulse Resp BP Pulse Ox 06/18/21 14:57 36.9 C 57 L 16 103/61 96 06/18/21 09:08 135/76 06/18/21 07:35 36.8 C 60 16 103/63 96 PG Care Time/CCT Total # of Minutes Spent Total Time Spent with Patient: Total time spent is greater than 50% in coor dination of care (as documented) at patient's floor/unit and/or counseling patient: Coding Level of Care Code 63326 Subseq Hosp Care Lvl 2 Diagnoses Hypoglycemia E16.2 C. difficile diarrhea A04.72 Diabetes type 2, uncontrolled E11.65 Urinary frequency R35.0 Ambulatory dysfunction R26.2 Mild cognitive impairment G31.84 Hypertension I10 Anxiety F41.9 Hypomagnesemia E83.42 Numbness of right hand R20.0 Hypokalemia E87.6
[2021-06-18] MEDS: DONEPEZIL HCL 10 MG TAB PO SCH (20:55)
[2021-06-19] MEDS: RASPBERRY SYRUP 5 ML UDP PO SCH ×3 (06:13→19:09)
[2021-06-19] MEDS: VANCOMYCIN HCL 125 MG/2.5ML SOLN PO SCH ×3 (06:13→19:09)
[2021-06-19] MEDS: INSULIN GLARGINE SOLOSTAR 100 UNITS/ML 3 ML PEN SC SCH ×2 (08:12→21:10)
[2021-06-19] MEDS: INSULIN ASPART 100 UNITS/ML 3 ML PEN SC SCH ×4 (08:14→21:10)
[2021-06-19] MEDS: lisinopril 10 MG TAB PO SCH (08:17)
[2021-06-19] MEDS: ENOXAPARIN INJ 30 MG/0.3 ML SYR SQ SCH (08:17)
[2021-06-19] MEDS: ESCITALOPRAM OXALATE 10 MG TAB PO SCH (08:18)
[2021-06-19] MEDS: SIMVASTATIN 20 MG TAB PO SCH (08:18)
[2021-06-19 08:44] LABS: Hematocrit (blood only) 38.8 % (37-47); Hemoglobin 13.4 g/dL (12.0-16.0); Mean Corpuscular Hemoglobin 31.3 pg (25-34); Mean Corpuscular Hgb Conc 34.5 g/dL (32-36); Mean Corpuscular Volume 90.7 fL (80-100); Mean Platelet Volume 10.3 fL (7.4-10.4); Platelet Count 255 K/uL (130-400); RDW Coefficient of Variation 13.3 % (11.5-14.5); RDW Standard Deviation 43.8 fL (36.4-46.3); Red Blood Count 4.28 M/uL (4.2-5.4); White Blood Count 9.67 K/uL (4.8-10.8)
[2021-06-19 09:20] LABS: BUN Creatinine Ratio 31.8 (10-20); Calcium 9.3 mg/dl (8.5-10.1); Creatinine Clr Calc Pharmacy 47.5 ml/min; Est GFR (African American) 99.1 ml/min; Est GFR (Non-African American) 85.5 ml/min; Potassium 3.7 mmol/L (3.5-5.1)
--- NOTE | 2021-06-19 12:07 | Hospitalist Progress Note ---
Date of Service June 19, 2021 Assessment & Plan (1) Hypoglycemia: Plan: - Blood sugar 40 prior to arrival. Then with hyperglycemia after holding of home insulin; eating and feeling better - Suspect hypoglycemia was due to medication effects patient is on high dose of insulin at home of 80 units, poor oral intake, infection with C. difficile diarrhea; Hyperglycemia now improved with increased doses of insulin - A1c - 06/03 -- 9.6 - Continue Lantus 20 units SC BID and SSI - has only intermittently required additional 3-5 units with meals -- Reviewed newspaper photo editor note to consider reduction of 30% of long acting coverage - Definitely would benefit from dosage reduction but will need to have some form of coverage given the 300+ readings and A1c however would not recommend stringent control (2) C. difficile diarrhea: Plan: - With multiple episodes of loose stool-tested positive for C. difficile upon admission - RESOLVING - Leukocytosis remains resolved, remains afebrile, no further diarrhea or abdominal pain - Cont vancomycin 125 mg p.o. 4 times daily x10-day course-last day will be 06/23/21 (3) Diabetes type 2, uncontrolled: Plan: - Patient presenting with hypoglycemia as described above and now with hyperglycemia; Plan as above (4) Urinary frequency: Plan: - Daughter endorses increased urinary frequency. UA appears contaminated with epithelial cells - Urine culture mixed bharat as expected with epi contamination - Ceftriaxone started on admission but has been discontinued especially in the setting of active C. difficile colitis/diarrhea (5) Ambulatory dysfunction: Plan: - Daughter states the patient is having a difficult time ambulating at home. Reports that she is unsteady on her feet and requires full assistance to get up from bed. Nursing and ER states the patient was able to ambulate to the bathroom with very minimal assistance. Daughter seems to be having a difficult time at this point caring for her mother at home. PT/OT evaluations recommend either 24/7 care or acute rehab -- She has significantly reduced level of function even from prior admission 2 weeks ago - Patient and daughter both requesting rehab placement at this time due to sign ificantly decreased mobility (6) Mild cognitive impairment: Plan: - Chronic. Patient presently oriented and is answering questions appropriately Continue Aricept 10 mg p.o. nightly (7) Hypertension: Plan: - Blood pressure well controlled to slightly low - Discontinued hydrochlorothiazide due to low normal blood pressures and diarrhea-avoid dehydration Continue lisinopril Continue to monitor (8) Anxiety: Plan: - Chronic. Continue escitalopram (9) Hypomagnesemia: Plan: - Replaced and resolved; in the setting of diarrhea (10) Numbness of right hand: Plan: - suspect CTS, not stroke - could use wrist brace after discharge (11) Hypokalemia: Plan: - replete as needed; monitor Plan: DVT prophylaxis- Lovenox Disposition- Referrals placed and awaiting insurance auth; patient also mentioned about considering long-term care facilities/independent living after rehab pending on outcome of her rehab Admission and Anticipated Discharge Date Admission Date: June 15, 2021 Subjective Reports doing well today. Tolerating a diet without issue. No diarrhea or abdominal pain. Remains afebrile without leukocytosis. Awaiting insurance authorization for rehab Review of Systems Review of Systems: REVIEW OF SYSTEMS General/Constitutional: Denies fever/chills ENT: Denies nasal drainage, sore throat Cardiovascular: Denies chest pain, palpitations, edema Respiratory: Denies cough, sputum, SOB, wheezing GI: Denies nausea, vomiting, abdominal pain, constipation, diarrhea : Denies dysuria Musculoskeletal: Denies joint/muscle aches Neurologic: Denies dizziness/lightheadedness Skin: Denies rash, itch Physical Exam Physical Exam: PHYSICAL EXAM General Appearance: WDWN in NAD HEENT: Head is normocephalic/atraumatic; Hearing grossly intact Neck: Supple; Trachea midline; Neg JVD Heart: RRR with no M/G/R Lungs: CTA in all lung connor bilaterally; Respirations unlabored; Neg accessory muscle use Abdomen: Soft, non-tender, non-distended; Positive BS x 4 quadrants Extremities: Neg cyanosis or edema Neurological: Speech clear; Gross motor/sensory function intact; Neg focal neurologic deficits Psychiatric: Appropriate mood/affect Skin: Normal Color; Warm/Dry Results & Data Results & Data ([facility]) Vital Signs (Past 12 Hours) Vital Signs Temp Pulse Resp BP Pulse Ox 06/19/21 07:00 37.0 C 58 L 20 103/60 96 PG Care Time/CCT Total # of Minutes Spent Total Time Spent with Patient: Total time spent is greater than 50% in coordination of care (as documented) at patient's floor/unit and/or counseling patient: Coding Level of Care Code 15365 Subseq Hosp Care Lvl 2 Diagnoses Hypoglycemia E16.2 C. difficile diarrhea A04.72 Diabetes type 2, uncontrolled E11.65 Urinary frequency R35.0 Ambulatory dysfunction R26.2 Mild cognitive impairment G31.84 Hypertension I10 Anxiety F41.9 Hypomagnesemia E83.42 Numbness of right hand R20.0 Hypokalemia E87.6
[2021-06-19] MEDS: DONEPEZIL HCL 10 MG TAB PO SCH (21:01)
[2021-06-20] MEDS: RASPBERRY SYRUP 5 ML UDP PO SCH ×5 (00:04→23:25)
[2021-06-20] MEDS: VANCOMYCIN HCL 125 MG/2.5ML SOLN PO SCH ×5 (00:04→23:25)
[2021-06-20] MEDS: INSULIN ASPART 100 UNITS/ML 3 ML PEN SC SCH ×4 (09:12→21:38)
[2021-06-20] MEDS: ESCITALOPRAM OXALATE 10 MG TAB PO SCH (09:13)
[2021-06-20] MEDS: INSULIN GLARGINE SOLOSTAR 100 UNITS/ML 3 ML PEN SC SCH ×2 (09:13→21:38)
[2021-06-20] MEDS: lisinopril 10 MG TAB PO SCH (09:14)
[2021-06-20] MEDS: SIMVASTATIN 20 MG TAB PO SCH (09:14)
[2021-06-20] MEDS: ENOXAPARIN INJ 30 MG/0.3 ML SYR SQ SCH (09:15)
--- NOTE | 2021-06-20 19:12 | Hospitalist Progress Note ---
Date of Service June 20, 2021 Assessment & Plan (1) Hypoglycemia: Plan: - Blood sugar 40 prior to arrival. Then with hyperglycemia after holding of home insulin; eating and feeling better - Suspect hypoglycemia was due to medication effects patient is on high dose of insulin at home of 80 units, poor oral intake, infection with C. difficile diarrhea; Hyperglycemia now improved with increased doses of insulin - A1c - 06/03 -- 9.6 - Will reduce Lantus to 15 units SC BID and SSI -- Reviewed early childhood educator aide note to consider reduction of 50% of long acting coverage - Definitely would benefit from dosage reduction but will need to have some form of coverage given the 300+ readings and A1c however would not recommend stringent control (2) C. difficile diarrhea: Plan: - With multiple episodes of loose stool-tested positive for C. difficile upon admission - RESOLVING - Leukocytosis remains resolved, remains afebrile, no further diarrhea or abdominal pain - Cont vancomycin 125 mg p.o. 4 times daily x10-day course-last day will be 06/23/21 (3) Diabetes type 2, uncontrolled: Plan: - Patient presenting with hypoglycemia as described above and now with hyperglycemia; Plan as above (4) Urinary frequency: Plan: - Daughter endorses increased urinary frequency. UA appears contaminated with epithelial cells - Urine culture mixed bharat as expected with epi contamination - Ceftriaxone started on admission but has been discontinued especially in the setting of active C. difficile colitis/diarrhea (5) Ambulatory dysfunction: Plan: - Daughter states the patient is having a difficult time ambulating at home. Reports that she is unsteady on her feet and requires full assistance to get up from bed. Nursing and ER states the patient was able to ambulate to the bathroom with very minimal assistance. Daughter seems to be having a difficult time at this point caring for her mother at home. PT/OT evaluations recommend either 24/7 care or acute rehab -- She has significantly reduced level of function even from prior admission 2 weeks ago - Patient and daughter both requesting rehab placement at this time due to significantly decreased mobility (6) Mild cognitive impairment: Plan: - Chronic. Patient presently oriented and is answering questions appropriately Continue Aricept 10 mg p.o. nightly (7) Hypertension: Plan: - Blood pressure well controlled to slightly low - Discontinued hydrochlorothiazide due to low normal blood pressures and diarrhea-avoid dehydration Continue lisinopril Continue to monitor (8) Anxiety: Plan: - Chronic. Continue escitalopram (9) Hypomagnesemia: Plan: - Replaced and resolved; in the setting of diarrhea (10) Numbness of right hand: Plan: - suspect CTS, not stroke - could use wrist brace after discharge (11) Hypokalemia: Plan: - replete as needed; monitor Plan: DVT prophylaxis- Lovenox Disposition- Denied SNF and peer to peer denied; attempting personal care at [facility] Admission and Anticipated Discharge Date Admission Date: June 15, 2021 Subjective Pt verbalizes no complaints today. No longer having diarrhea. Tolerating diet without issue. Was denied SNF and was unable to get it overturned on peer to p eer Review of Systems Review of Systems: REVIEW OF SYSTEMS General/Constitutional: Denies fever/chills ENT: Denies nasal drainage, sore throat Cardiovascular: Denies chest pain, palpitations, edema Respiratory: Denies cough, sputum, SOB, wheezing GI: Denies nausea, vomiting, abdominal pain, constipation, diarrhea : Denies dysuria Musculoskeletal: Denies joint/muscle aches Neurologic: Denies dizziness/lightheadedness Skin: Denies rash, itch Physical Exam Physical Exam: PHYSICAL EXAM General Appearance: WDWN in NAD HEENT: Head is normocephalic/atraumatic; Hearing grossly intact Neck: Supple; Trachea midline; Neg JVD Heart: RRR with no M/G/R Lungs: CTA in all lung connor bilaterally; Respirations unlabored; Neg accessory muscle use Abdomen: Soft, non-tender, non-distended; Positive BS x 4 quadrants Extremities: Neg cyanosis or edema Neurological: Speech clear; Gross motor/sensory function intact; Neg focal neurologic deficits Psychiatric: Appropriate mood/affect Skin: Normal Color; Warm/Dry Results & Data Results & Data ([facility]) Vital Signs (Past 12 Hours) Vital Signs Temp Pulse Resp BP BP Pulse Ox 06/20/21 14:46 36.9 C 59 L 16 102/63 98 06/20/21 09:09 54 L 148/71 H 06/20/21 07:17 36.7 C 54 L 15 116/65 97 PG Care Time/CCT Total # of Minutes Spent Total Time Spent with Patient: Total time spent is greater than 50% in coordination of care (as documented) at patient's floor/unit and/or counseling patient: Coding Level of Care Code 08842 Subseq Hosp Care Lvl 2 Diagnoses Hypoglycemia E16.2 C. difficile diarrhea A04.72 Diabetes type 2, uncontrolled E11.65 Urinary frequency R35.0 Ambulatory dysfunction R26.2 Mild cognitive impairment G31.84 Hypertension I10 Anxiety F41.9 Hypomagnesemia E83.42 Numbness of right hand R20.0 Hypokalemia E87.6
[2021-06-20] MEDS: DONEPEZIL HCL 10 MG TAB PO SCH (21:37)
[2021-06-21] MEDS: RASPBERRY SYRUP 5 ML UDP PO SCH ×4 (06:24→23:41)
[2021-06-21] MEDS: VANCOMYCIN HCL 125 MG/2.5ML SOLN PO SCH ×4 (06:24→23:41)
[2021-06-21] MEDS: ENOXAPARIN INJ 30 MG/0.3 ML SYR SQ SCH (08:58)
[2021-06-21] MEDS: lisinopril 10 MG TAB PO SCH (08:59)
[2021-06-21] MEDS: ESCITALOPRAM OXALATE 10 MG TAB PO SCH (08:59)
[2021-06-21] MEDS: SIMVASTATIN 20 MG TAB PO SCH (08:59)
[2021-06-21] MEDS: INSULIN GLARGINE SOLOSTAR 100 UNITS/ML 3 ML PEN SC SCH ×2 (09:02→20:34)
[2021-06-21] MEDS: INSULIN ASPART 100 UNITS/ML 3 ML PEN SC SCH ×4 (09:02→20:33)
--- NOTE | 2021-06-21 15:45 | Hospitalist Progress Note ---
Date of Service June 21, 2021 Assessment & Plan (1) Hypoglycemia: Plan: - Blood sugar 40 prior to arrival. Then with hyperglycemia after holding of home insulin; eating and feeling better - Suspect hypoglycemia was due to medication effects patient is on high dose of insulin at home of 80 units, poor oral intake, infection with C. difficile diarrhea; Hyperglycemia now improved with increased doses of insulin -- Talking with the daughter it is likely patient was not using her medications so when she was actually getting her medication it dropped her low - A1c - 06/03 -- 9.6 - Lantus at 15 units SC BID and SSI -- Reviewed breastfeeding educator note to consider reduction of 50-60% of long acting coverage -- Consider reducing Toujeo to 40 units which may give her enough coverage alone - her BSGs can be monitored at [facility] and could consider slight inc rease in Toujeo vs adding an insulin aspart sliding scale if needed -- Given age would not be aggressive with correction - would not be too alarmed with BSGs even in the 200s to prevent significant lows (2) C. difficile diarrhea: Plan: - With multiple episodes of loose stool-tested positive for C. difficile upon admission - RESOLVING - Leukocytosis remains resolved, remains afebrile, no further diarrhea or abdominal pain - Cont vancomycin 125 mg p.o. 4 times daily x10-day course-last day will be 06/23/21 (3) Diabetes type 2, uncontrolled: Plan: - Patient presenting with hypoglycemia as described above and then with hyperglycemia when holding insulin - now stabilized; Plan as above (4) Urinary frequency: Plan: - Daughter endorses increased urinary frequency. UA appears contaminated with epithelial cells - Urine culture mixed bharat as expected with epi contamination - Ceftriaxone started on admission but has been discontinued especially in the setting of active C. difficile colitis/diarrhea (5) Ambulatory dysfunction: Plan: - Daughter states the patient is having a difficult time ambulating at home. Reports that she is unsteady on her feet and requires full assistance to get up from bed. Nursing and ER states the patient was able to ambulate to the bathroom with very minimal assistance. Daughter seems to be having a difficult time at this point caring for her mother at home. PT/OT evaluations recommend either 24/7 care or acute rehab -- She has significantly reduced level of function even from prior admission 2 weeks ago - Patient and daughter both discussed personal care given denial of rehab (6) Mild cognitive impairment: Plan: - Chronic. Patient presently oriented and is answering questions appropriately but is forgetful Continue Aricept 10 mg p.o. nightly (7) Hypertension: Plan: - Blood pressure well controlled to slightly low but stabilized with HCTZ held Continue lisinopril Continue to monitor (8) Anxiety: Plan: - Chronic. Continue escitalopram (9) Hypomagnesemia: Plan: - Replaced and resolved; in the setting of diarrhea (10) Numbness of right hand: Plan: - suspect CTS, not stroke - could use wrist brace after discharge (11) Hypokalemia: Plan: - replete as needed; monitor Plan: DVT prophylaxis- Lovenox Disposition- Denied SNF and peer to peer denied; attempting personal care at [facility] and can discharge when logistics arranged Admission and Anticipated Discharge Date Admission Date: June 15, 2021 Subjective Reports doing well today and has no complaints. She is tolerating a diet. Assisted her to the bathroom during my visit. She was a bit slow to lift of the bed but ambulated with the walker without imbalance. She did have to urinate so she was walking slightly fast but ambulated with just supervision. Planning on personal care tomorrow. Review of Systems Review of Systems: REVIEW OF SYSTEMS General/Constitutional: Denies fever/chills Cardiovascular: Denies chest pain, palpitations, edema Respiratory: Denies cough, sputum, SOB GI: Denies nausea, vomiting, abdominal pain, constipation, diarrhea : Denies dysuria Musculoskeletal: Denies joint/muscle aches Neurologic: Denies dizziness/lightheadedness Physical Exam Physical Exam: PHYSICAL EXAM General Appearance: WDWN in NAD HEENT: Head is normocephalic/atraumatic; Hearing grossly intact Neck: Supple; Trachea midline; Neg JVD Heart: RRR with no M/G/R Lungs: CTA in all lung connor bilaterally; Respirations unlabored; Neg accessory muscle use Abdomen: Soft, non-tender, non-distended; Positive BS x 4 quadrants Extremities: Neg cyanosis or edema Neurological: Speech clear; Gross motor/sensory function intact; Neg focal neurologic deficits Psychiatric: Appropriate mood/affect; forgetful Skin: Normal Color; Warm/Dry Results & Data Results & Data ([facility]) Vital Signs (Past 12 Hours) Vital Signs Temp Pulse Resp BP Pulse Ox 06/21/21 14:25 37.1 C 57 L 16 119/74 94 06/21/21 07:26 36.8 C 53 L 16 129/76 97 PG Care Time/CCT Total # of Minutes Spent Total Time Spent with Patient: Total time spent is greater than 50% in coordination of care (as documented) at patient's floor/unit and/or counseling patient: Coding Level of Care Code 17692 Subseq Hosp Care Lvl 2 Diagnoses Hypoglycemia E16.2 C. difficile diarrhea A04.72 Diabetes type 2, uncontrolled E11.65 Urinary frequency R35.0 Ambulatory dysfunction R26.2 Mild cognitive impairment G31.84 Hypertension I10 Anxiety F41.9 Hypomagnesemia E83.42 Numbness of right hand R20.0 Hypokalemia E87.6
[2021-06-21] MEDS: DONEPEZIL HCL 10 MG TAB PO SCH (20:32)
[2021-06-22] MEDS: RASPBERRY SYRUP 5 ML UDP PO SCH ×2 (05:31→11:28)
[2021-06-22] MEDS: VANCOMYCIN HCL 125 MG/2.5ML SOLN PO SCH ×2 (05:31→11:28)
[2021-06-22] MEDS: lisinopril 10 MG TAB PO SCH (09:25)
[2021-06-22] MEDS: ENOXAPARIN INJ 30 MG/0.3 ML SYR SQ SCH (09:25)
[2021-06-22] MEDS: ESCITALOPRAM OXALATE 10 MG TAB PO SCH (09:25)
[2021-06-22] MEDS: SIMVASTATIN 20 MG TAB PO SCH (09:26)
[2021-06-22] MEDS: INSULIN ASPART 100 UNITS/ML 3 ML PEN SC SCH (09:28)
[2021-06-22] MEDS: INSULIN GLARGINE SOLOSTAR 100 UNITS/ML 3 ML PEN SC SCH (09:29)
[2021-06-22] MEDS ORDERED: SIMETHICONE 80 MG CHEW PO ONE (11:15)
--- NOTE | 2021-06-22 13:23 | Discharge Summary ---
Date of Service June 22, 2021 Admission HPI Per Admitting Provider Stefani Parrish is an 81-year-old female with history of hypertension, hyperlipidemia, diabetes, dementia presenting for hypoglycemia. Patient was recently admitted to [facility] from 06/02/2021 through 06/05/2021 after a fall at home. She was discharged to home in [place] with plan for home PT and OT. She had friends and neighbors that were checking in on her however, her daughter felt that she needed more care therefore, patient recently moved in with her daughter in [place]. Daughter notes that since being home patient has had difficulty with mobility. She has needed significant help to get up and ambulate. Daughter also notes patient has had some diarrhea as well as urinary frequency and urgency. Daughter is in the process of getting home services (PT and OT) for her mother at her home in [place]. This morning patient's daughter tried to get the patient up to go to doctor's appointments. Patient was minimally responsive and quite somnolent. She stood up and then slid off the bed. EMS was called. When they arrived her blood sugar was noted to be 40. She was administered p.o. glucagon which increased her blood sugar to 45 on repeat. Was administered a second dose of p.o. glucagon which increased her blood sugar to 51. On arrival to the ER her blood sugar was found to be 90, 131 on chemistry panel. It did decrease again to 67. Patient is sitting up in bed eating a sandwich and states she feels fine. She does complain of some lightheadedness and dizziness as well as ambulatory dysfunction. Daughter reports the patient's blood sugars have been intermittently low while at home, occasionally in the 50s. Daughter has not been administering insulin. ER course: Ceftriaxone, normal saline Principal Diagnosis Hypoglycemia; C. Difficile Discharge Exam PHYSICAL EXAM General Appearance: WDWN in NAD HEENT: Head is normocephalic/atraumatic; Hearing grossly intact Neck: Supple; Trachea midline; Neg JVD Heart: RRR with no M/G/R Lungs: CTA in all lung connor bilaterally; Respirations unlabored; Neg accessory muscle use Abdomen: Soft, non-tender, non-distended; Positive BS x 4 quadrants Extremities: Neg cyanosis or edema Neurological: Speech clear; Gross motor/sensory function intact; Neg focal neurologic deficits Psychiatric: Appropriate mood/affect; forgetful Skin: Normal Color; Warm/Dry Discharge Data Allergies Allergy/AdvReac Type Severity Reaction Status Date / Time bee venom protein (honey bee) Allergy Intermediate SWELLING Verified 06/13/21 20:50 codeine Allergy Intermediate HEADACHE Verified 06/13/21 20:50 Ordered Studies Chest X-Ray 06/13/21 15:18 XR chest 1V portable HISTORY: 81 years-old Female weakness acute weakness COMPARISON: Chest radiograph 06/02/2021, CT cervical spine 06/02/2021. TECHNIQUE: Portable AP view of the chest FINDINGS: Cardiomediastinal and hilar silhouettes are unchanged. Calcified plaque of the thoracic aorta. No pleural effusion, airspace consolidation or overt pulmonary edema. There is a linear line projects over the left lung apex, 2 mm from the adjacent ribs. The previously questioned 1.2 cm nodule of the left upper lung is not definitively seen. Degenerative changes of the shoulders and spine. Mid thoracic dextroscoliosis. IMPRESSION: Linear line of the left lung apex suggestive of a skin fold versus tiny apical pneumothorax. Correlation with follow-up inspiration and expiration films recommended. ACT 112: Negative or not required by law. The above report was generated using voice recognition software. It may contain grammatical, syntax or spelling errors. Electronically signed by: Lino Brar M.D. 06/13/2021 4:[address] 06/13/21 15:18 CT head/brain wo con CLINICAL HISTORY: 81 years-old Female with weakness, confusion. Acutely altered mental status TECHNIQUE: Multiple axial CT images of the head were obtained without contrast. A dose lowering technique was utilized adhering to the principles of ALARA. CT DOSE: 537.48 mGy.cm COMPARISON: Head CT 06/02/2021 FINDINGS: No acute intracranial hemorrhage, midline shift, intracranial mass, hydrocephalus, territorial ischemia or abnormal extra-axial collection. Age- related involutional changes. White matter hypodensities suggestive of chronic microvascular ischemic disease. Falx cerebri calcifications. The calvarium is intact. Mastoid air cells are clear. Severe mucoperiosteal thickening of the right maxillary sinus with area of large polypoid mucosal thickening within the right sphenoid sinus. 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 Unremarkable soft tissues and orbits. IMPRESSION: No acute intracranial abnormality. ACT 112: Negative or not required by law. The above report was generated using voice recognition software. It may contain grammatical, syntax or spelling errors. Electronically signed by: Lino Brar M.D. 06/13/2021 4:[address] 06/13/21 17:11 CT chest diagnostic wo con CT DOSE: 164.77 mGy.cm CLINICAL HISTORY: 81 years-old Female with question L chest ptx on xray. Follow-up study in a patient with questioned left-sided pneumothorax TECHNIQUE: Multiaxial CT images of the chest were performed without contrast. A dose lowering technique was utilized adhering to the principles of ALARA. COMPARISON: Chest radiograph of same day, chest CT 06/28/2019, 06/15/2018, April 09, 2017. FINDINGS: Multinodular thyroid. Mild cardiomegaly. No pericardial effusion. Extensive coronary artery calcifications. Fusiform dilation of the ascending thoracic aorta measuring 4.0 x 4.0 cm previously measured 3.8 cm in 2019. Moderate atherosclerosis of the thoracic aorta. There is no adenopathy. No pneumothorax, pleural effusion, airspace consolidation or overt pulmonary edema. Numerous (greater than 10) bilateral solid pulmonary nodules are redemonstrated measuring up to 8 mm within the right lower lobe. These appear generally stable dating back to 2017. The central airways are patent. No acute process of the imaged upper abdomen. Unremarkable soft tissues. No acute fracture. Mid thoracic dextroscoliosis. Chronic appearing mid sternal fracture just below the sternomanubrial joint. IMPRESSION: 1. No acute intrathoracic abnormality. Specifically, there is no pneumothorax. 2. Numerous bilateral solid pulmonary nodules measuring up to 8 mm appear generally stable dating back to 2016. 3. Multinodular thyroid goiter. 4. Aneurysmal dilation of the ascending thoracic aorta measures 4.0 cm, pre viously 3.8 cm on the June 28, 2019 exam. ACT 112: Negative or not required by law. Electronically signed by: Lino Brar M.D. 06/13/2021 7:07 PM Hospital Course (1) Hypoglycemia: - Blood sugar 40 prior to arrival. Then with hyperglycemia after holding of home insulin; eating and feeling better - Suspect hypoglycemia was due to medication effects patient is on high dose of insulin at home of 80 units, poor oral intake, infection with C. difficile diarrhea; Hyperglycemia now improved with increased doses of insulin -- Talking with the daughter it is likely patient was not using her medications prior to moving in with her daughter so when she moved in she was actually getting her medication and it dropped her low - A1c - 06/03 -- 9.6 - Reduced Toujeo to 40 units which may give her enough coverage alone - her BSGs can be monitored at [facility] and could consider slight increase in Toujeo - Did provide insulin sliding scale parameters of 140-180 with correction factor of 20 that can be utilized -- Given age would not be aggressive with correction - would not be too alarmed with BSGs even in the 200s to prevent significant lows (2) C. difficile diarrhea: - With multiple episodes of loose stool-tested positive for C. difficile upon admission - RESOLVed -- Having about 1 bowel movement most days that is soft - Leukocytosis remains resolved, remains afebrile, no further diarrhea or abdominal pain - Cont vancomycin 125 mg p.o. 4 times daily x10-day course-last day will be 06/23/21 - Will need monitoring to make sure it doesn't re-emerge or need longer course treatment (3) Diabetes type 2, uncontrolled: - Patient presenting with hypoglycemia as described above and then with hyperglycemia when holding insulin - now stabilized; Plan as above (4) Urinary frequency: - Daughter endorses increased urinary frequency. UA appears contaminated with epithelial cells - Urine culture mixed bharat as expected with epi contamination - Ceftriaxone started on admission but has been discontinued especially in the setting of active C. difficile colitis/diarrhea (5) Ambulatory dysfunction: - Daughter states the patient is having a difficult time ambulating at home. Reports that she is unsteady on her feet and requires full assistance to get up from bed. Nursing and ER states the patient was able to ambulate to the bathroom with very minimal assistance. Daughter seems to be having a difficult time at this point caring for her mother at home. PT/OT evaluations recommend either 24/7 care or acute rehab -- She has significantly reduced level of function even from prior admission 2 weeks ago - Patient and daughter both discussed personal care given denial of rehab (6) Mild cognitive impairment: - Chronic. Patient presently oriented and is answering questions appropriately but is forgetful Continue Aricept 10 mg p.o. nightly (7) Hypertension: - Blood pressure well controlled to slightly low but stabilized with HCTZ held and recommend holding on D/C Continue lisinopril Continue to monitor (8) Anxiety: - Chronic. Continue escitalopram (9) Hypomagnesemia: - Replaced and resolved; in the setting of diarrhea (10) Numbness of right hand: - suspect CTS, not stroke - could use wrist brace after discharge (11) Hypokalemia: - replete as needed; monitor DVT prophylaxis- Lovenox Disposition- Denied SNF and peer to peer denied; arranged for personal care at [facility] Total Time Total Time Spent Total Time Spent (In Minutes): Spent greater than 30 minutes preparing patient for discharge. This includes discussion with patient/family, assessment, intervention, medication reconciliation, and coordination of care. Discharge Plan Discharge Items Patient Disposition: Personal Jail Reason For Visit: HYPOGLYCEMIA Discharge Diagnosis: Low Blood Sugar and Clostridium Difficile Activity: Resume your previous activity Non-emergency contact: Primary Care Provider Call non-emergency contact if: you have any medication questions, your symptoms worsen and you have a fever Follow-up/Referrals: America Osullivan MD [Primary Care Provider] - (Please have follow-up in 7- 10 days) Diet: Carb Consistent or DM2 Addtl Attending Provider Instructions: Low Blood Sugar: - Initial presentation was with a low blood sugar. However, without insulin the blood sugars run in the 300s. - Ultimately, the dose of the Toujeo needs to be reduce. Recommend Starting with Toujeo 40 units daily and monitoring blood sugar at meals and at bedtime to determine if further adjustments need to be made - We have also used a sliding scale here in the hospital but she has not required much additional insulin with meals -- Our parameters are sugar range 140-180 with a correction factor of 20 mg/dL/unit - Her A1c is 9.6 so we would like to see this improved but recommend a slow progression to a lower A1c given age and risk of low sugar C. difficile diarrhea: - With multiple episodes of loose stool-tested positive for C. difficile upon admission - RESOLVING -- Only having about 1 soft bowel movement a day - Cont vancomycin 125 mg p.o. 4 times daily with last day will be 06/23/21 - After resolution of soft stool can then incorporate fiber and as needed stool softeners/laxatives if constipation should occur - Continue to monitor as she will be at risk for repeat C. diff diarrhea. If diarrhea resumes she may need a different c. diff medication and a longer duration of time. May benefit from infectious disease referral if she would have a new case of diarrhea Urinary Frequency: - Urine culture just revealed mixed skin bharat but was initially treated with an antibiotic on admission - Given diarrhea monitor for development of a urinary tract infection and promote good hygeine Ambulation: - Recommend continued walker use Mild memory impairment: Continue Aricept 10 mg nightly Hypertension: - Blood pressure well controlled and stopped HCTZ to prevent low blood pressures and dehydration Continue lisinopril Continue to monitor Anxiety: - Chronic. Continue escitalopram Numbness of right hand: - Consistent with carpal tunnel syndrome - could use wrist brace after discharge Pain: - May use Tylenol as needed for pain Medications: - All medications have been sent to [facility] for [facility] [employer] Pending Studies at Discharge: No Stand-Alone Forms: [employer], Smoking Cessation Skilled Items Patient informed of condition?: Yes DNR: No Discharge Level of Care: Other Communicable Disease: No Discharge Prognosis: Stable Lines: None Urinary Catheter: No Medications and DC Order Prescriptions: New vancomycin 125 mg capsule 125 mg PO QID Qty: 6 RF: 0 insulin aspart U-100 [Novolog Flexpen U-100 Insulin] 100 unit/mL (3 mL) Insulin Pen 1 - 5 unit SC ACHS PRN (Reason: Glucose Coverage) Qty: 3 RF: 0 Continued acetaminophen 500 mg capsule 500 mg PO BID PRN (Reason: fever or pain) RF: 0 donepezil 10 mg tablet 10 mg PO HS 30 Days Qty: 30 RF: 0 simvastatin 20 mg tablet 20 mg PO DAILY 30 Days Qty: 30 RF: 0 lisinopril 10 mg tablet 10 mg PO DAILY 30 Days Qty: 30 RF: 0 escitalopram oxalate 10 mg tablet 10 mg PO DAILY 30 Days Qty: 30 RF: 0 simethicone 80 mg tablet,chewable 80 mg PO Q4H PRN (Reason: abdominal distention) 30 Days Qty: 30 RF: 0 cholecalciferol (vitamin D3) 1,000 unit capsule 1,000 units PO DAILY 30 Days Qty: 30 RF: 0 glucosamine sulfate 2KCl 1,000 mg tablet 1,000 mg PO BID PRN (Reason: NEEDED) 30 Days Qty: 30 RF: 0 diclofenac sodium 1 % gel 1 gm topical QID PRN (Reason: hip pain) Qty: 100 RF: 0 One-A-Day Womens Formula 18 mg iron-400 mcg-500 mg tablet 1 tab PO DAILY 30 Days Qty: 30 RF: 0 Discontinued potassium chloride [Klor-Con M20] 20 mEq tablet,ER particles/crystals 20 meq PO BID Qty: 60 RF: 5 loperamide 2 mg tablet 4 mg PO DAILY RF: 0 psyllium husk 0.4 gram capsule 0.4 g PO DAILY RF: 0 hydrochlorothiazide 25 mg tablet 25 mg PO QAM RF: 0 insulin aspart U-100 100 unit/mL (3 mL) insulin pen 0 units subcut TIDM RF: 0 insulin glargine U-300 conc 300 unit/mL (1.5 mL) insulin pen 80 unit subcut DAILY RF: 0 No Action insulin glargine U-300 conc 300 unit/mL (1.5 mL) insulin pen 40 unit subcut DAILY 30 Days Qty: 4.5 RF: 5 (DME) pen needle, diabetic [Novofine 32] 32 gauge x 1/4" needle See Dose Instructions .ROUTE .MEDSUPPLY Qty: 100 RF: 3 (DME) blood-glucose meter [Easy Touch Glucose Monitor] Misc See Dose Instructions .ROUTE .MEDSUPPLY Qty: 1 RF: 0 (DME) lancets [OneTouch Delica Lancets] 30 gauge misc See Dose Instructions .ROUTE .MEDSUPPLY Qty: 200 RF: 5 (DME) OneTouch Ultra Test Strip See Rx Instructions .Route Qty: 100 RF: 5 Discharge Orders: Discharge Order (Routine); Ordered 06/22/21 Ordered By: Rebeca Robb Admission Data Admit Date/Time: 06/15/21 20:01 Attending Provider: Dexter Puentes Admit Provider: Whitley Shook Primary Care Provider: America Osullivan Other Providers: [place] ; [facility] ; [facility] Other Interventions: Discharge Summary Assessment (RN) Last Done: 06/22/21 10:55 Supervising Physician Co-Signing Physician Notes Attending note: patient seen and examined with Rebeca Robb PA-C. I agree with her discharge summary. I personally reviewed the labs and imaging findings. patient's sugars better controlled, plan for control on discharge diarrhea resolved with treatment of C diff colitis - C diff colitis: continue Vancomycin 125mg PO q6 until 06/23, diarrhea resolved - Hypoglycemia: adjusted Toujeo to 40 units, monitor glucose at [facility] for further adjustments, diabetic diet Coding Level of Care Code D/C DAY MANAGEMENT >30 MINS Diagnoses Hypoglycemia E16.2 C. difficile diarrhea A04.72 Diabetes type 2, uncontrolled E11.65 Urinary frequency R35.0 Ambulatory dysfunction R26.2 Mild cognitive impairment G31.84 Hypertension I10 Anxiety F41.9 Hypomagnesemia E83.42 Numbness of right hand R20.0 Hypokalemia E87.6
== END 2021-06-22 12:27 | disposition home or self-care (01) | DRG 638 ==
LOC: 3E 14:35 → ED 14:35 → SUATTDRO 20:34 → 3E 23:05 → SUATTDRO 06-15 20:01
DX: E83.42 Hypomagnesemia; F03.90 Unspecified dementia, unspecified severity, without behavioral disturbance, psychotic disturbance, mood disturbance, and anxiety; R20.0 Anesthesia of skin; F41.9 Anxiety disorder, unspecified; E11.649 Type 2 diabetes mellitus with hypoglycemia without coma; I10 Essential (primary) hypertension; Z88.5 Allergy status to narcotic agent; A04.72 Enterocolitis due to Clostridium difficile, not specified as recurrent; R33.9 Retention of urine, unspecified; E87.6 Hypokalemia; Z79.4 Long term (current) use of insulin

== ENCOUNTER 2021-10-09 09:54 | Inpatient (IN) ==
[2021-10-09] MEDS ORDERED: SODIUM CHLORIDE 0.9% 1000ML 1,000 ML IV ONE (10:48)
[2021-10-09 11:08] LABS: Hematocrit (blood only) 39.1 % (37-47); Hemoglobin 12.9 g/dL (12.0-16.0); Mean Corpuscular Hemoglobin 30.9 pg (25-34); Mean Corpuscular Volume 93.5 fL (80-100); Mean Platelet Volume 11.1 fL (7.4-10.4); Platelet Count 299 K/uL (130-400); RDW Coefficient of Variation 15.1 % (11.5-14.5); RDW Standard Deviation 50.7 fL (36.4-46.3); Red Blood Count 4.18 M/uL (4.2-5.4); White Blood Count 10.43 K/uL (4.8-10.8)
[2021-10-09 11:23] LABS: Albumin Globulin Ratio 0.6 (0.9-2); Albumin Level 2.6 gm/dl (3.4-5.0); BUN Creatinine Ratio 15.1 (10-20); Bilirubin Direct 4.8 mg/dl (0-0.2); Bilirubin,Total 5.9 mg/dl (0.2-1); Calcium 9.5 mg/dl (8.5-10.1); Creatinine Clr Calc Pharmacy 39.6 ml/min; Est GFR (African American) 85.3 ml/min; Est GFR (Non-African American) 73.6 ml/min; Globulin 4.1 gm/dl (2.5-4.0); Magnesium 2.2 mg/dl (1.8-2.4); Phosphorus 3.1 mg/dl (2.5-4.9); Total Protein 6.7 gm/dl (6.4-8.2)
--- NOTE | 2021-10-09 11:25 | Emergency Department Note ---
Impression & Plan Painless jaundice, Hyperbilirubinemia, Transaminitis, Cholelithiasis ED Provider Note NAME: JAMEY WHITEHEAD AGE: 81 SEX: F ARRIVES VIA: Ambulance INFORMANT: Patient. ED PROVIDER(S): Devonte Emanuel MD CHIEF COMPLAINT: Painless jaundice PLAN: Disposition: Admit MEDICAL DECISION MAKING: The patient is a pleasant 81-year-old woman with a past medical history of hypertension, hyperlipidemia, dementia who presents to the emergency department from her personal care/assisted living facility for evaluation of painless jaundice. Patient is a poor historian denies knowing when this had occurred. She denies any abdominal pain, nausea, vomiting, diarrhea or urinary symptoms. She has any fevers, cough, congestion, chest pain or shortness of breath. On arrival the patient is fatigued appearing but no distress, afebrile stable vital signs. She appears clinically dry. She has mild bilateral scleral icterus and mild-moderate jaundice. Her abdomen is benign. WBC, H/H and platelets within normal limits. Chemistry without metabolic acidosis. Lactic acid 2.0. LFTs are elevated with total bilirubin 5.9, direct bili 4.8. AST and ALT also elevated in the 100s. Alk phos is also elevated at 700. Lipase within normal limits. Procalcitonin is not elevated. UA without convincing evidence of infection. COVID-19 RNA, TERRY test was negative. CT of the abdomen pelvis was performed and demonstrates cholelithiasis with evidence of cholecystitis without ductal dilatation. However given the patient's obstructive pattern on LFTs choledocholithiasis is suspected. Case was discussed with GI on-call, Dr. Bhardwaj who agrees with plan for admission to medicine for further management MRCP and possible ERCP. Case was additionally discussed with Marika Bearden, general surgery PAC with Dr. Mesa, general surgery on-call who evaluated the patient at the bedside and agree with plan per above. Case was d/w Dr. Jose, [facility] hospitalist who will evaluate the patient for admission. Patient's daughter was updated via phone. Triage Nursing notes reviewed and agree them. Prior medical records reviewed Vital Signs: reviewed and remarkable for no significant abnormalities Differential diagnosis: Infection, dehydration, metabolic abnormality, hypo/hyperglycemia, electrolyte disturbance, anemia, hypoxia, cardiac sources, intracerebral event, toxicologic, neurologic, as well as other pathologies. ER treatment provided: See below. Diagnostics interpreted by me: ECG: NSR with sinus arrhythmia, 75 bpm, no ectopy, no overt ST elevation or depression. Cardiac Monitoring: An order for continuous cardiac monitoring was placed and demonstrated NSR with sinus arrhythmia, 75 bpm, no ectopy. Laboratory studies: See below Imaging studies: See below Consultation(s): Dr. Bhardwaj, GI on-call. Marika Bearden, general surgery PAC with Dr. Mesa, general surgery on-call. Dr. Jose, [facility] hospitalist. HPI: The patient is a pleasant 81-year-old woman with a past medical history of hypertension, hyperlipidemia, dementia who presents to the emergency department from her personal care/assisted living facility for evaluation of painless jaundice. Patient is a poor historian denies knowing when this had occurred. She denies any abdominal pain, nausea, vomiting, diarrhea or urinary symptoms. She has any fevers, cough, congestion, chest pain or shortness of breath. ROS: See above HPI for pertinent positives & negatives. A total of 10 systems reviewed and were otherwise negative. PAST MEDICAL HISTORY:See Below PAST SURGICAL HISTORY:See Below FAMILY HISTORY:See Below SOCIAL HISTORY:See Below HOME MEDICATIONS:See Below ALLERGIES:See Below VITALS:See Below PHYSICAL EXAMINATION: GENERAL: Awake, alert, fatigued-appearing, in no distress HENT: Normocephalic, atraumatic. Oropharynx with dry mucous membranes and otherwise unremarkable. EYES: Normal conjunctiva. Sclera are icteric. NECK: Supple. No nuchal rigidity. FROM. No JVD. RESPIRATORY: Clear to auscultation. CARDIAC: Regular rate, normal rhythm. Extremities warm and well perfused. Pulses equal. ABDOMEN: Soft, non-distended. No tenderness to palpation. No rebound or guarding. No masses. RECTAL: Deferred. MUSCULOSKELETAL: Chest examination reveals no tenderness. The back is symmetrical on inspection without obvious abnormality. There is no CVA tenderness to palpation. No joint edema. LOWER EXTREMITIES: Calves are equal size bilaterally and non-tender. No edema. No discoloration. NEURO: Normal sensorium. No sensory or motor deficits noted. SKIN: Mild-moderate jaundice noted. No rashes. Devonte Emanuel MD Past Med/Surg History Medical History Dehydration Diverticulosis DSAP (disseminated superficial actinic porokeratosis) Endometrial adenocarcinoma Fall from standing Fatigue Hearing difficulty History of actinic keratosis History of cellulitis 2nd toe History of lymphocytosis History of osteopenia History of postmenopausal bleeding History of solar lentigo Hoarding behavior Hyperglycemia Hypokalemia Hypomagnesemia Lung nodules Murmur Near syncope Solitary thyroid nodule Tubular adenoma of colon Weakness Weakness Surgical History H/O colonoscopy History of hysterectomy with bilateral oophorectomy S/P appendectomy S/P dilation and curettage Status post repair of nerve carpal tunnel Family History Sister Anxiety Depression Mother Gallbladder disease Diabetes Aunt Diabetes Father Cardiac disorder Myocardial infarction Skin cancer Family/Other Stroke Grandmother (Maternal) Cardiac disorder Diabetes and maternal great grandmother Daughter Diabetes Denies family history of Ovarian cancer Prostate cancer Crohn's disease Breast cancer Colorectal cancer Ulcerative colitis Social History Smoking Status: Never smoker Second Hand Exposure: No; Hx Alcohol Use: No Hx Substance Use: No Preferred Language: Wolof Communication Ability: Effective 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 Beliefs That Will Affect Care: None marital status: / Current Living Situation: Family current occupational status: retired How many Children do You have: 1 Feels Safe at Home: Yes Childhood Exposure to Second-Hand Smoke: No caffeine: Yes Dental Care, Regularly: Yes Physical Activity Frequency: 3-4 Times per Week Seatbelt Use: always Sunscreen Use: No Assistive Devices: Walker Allergies Allergies Allergy/AdvReac Type Severity Reaction Status Date / Time bee venom protein (honey bee) Allergy Intermediate SWELLING Verified 10/09/21 11:36 codeine Allergy Intermediate HEADACHE Verified 10/09/21 11:36 Home Meds Home Medications Medication Instructions Recorded Confirmed cholecalciferol (vitamin D3) 25 1,000 unit PO QAM 10/09/21 10/09/21 mcg (1,000 unit) capsule diclofenac sodium 1 % topical gel 1 g TOPICAL QID PRN 10/09/21 10/09/21 escitalopram oxalate 20 mg tablet 20 mg PO QAM 10/09/21 10/09/21 famotidine 10 mg tablet 10 mg PO QAM 10/09/21 10/09/21 glucosamine sulfate 2KCl 1,000 mg 1,000 mg PO BID PRN 10/09/21 10/09/21 tablet lisinopril 10 mg tablet 10 mg PO QAM 10/09/21 10/09/21 memantine 5 mg tablet (Namenda) 5 mg PO BID 10/09/21 10/09/21 [id number] carb-vit K 1 tab PO QAM 10/09/21 10/09/21 18 mg iron-400 mcg-500 mg tablet (One-A-Day Womens Formula) simvastatin 20 mg tablet 20 mg PO HS 10/09/21 10/09/21 Previous Rx's Medication Instructions Recorded blood sugar diagnostic (OneTouch #100 ea 06/22/21 Ultra Test) blood-glucose meter (Easy Touch #1 ea 06/22/21 Glucose Monitor) lancets 30 gauge (OneTouch Delica #200 ea 06/22/21 Lancets) pen needle, diabetic 32 gauge x #100 ea 06/22/2110/23" (Novofine 32) donepezil 10 mg tablet 10 mg PO HS 30 Days #30 tab 07/23/21 simethicone 80 mg chewable tablet 80 mg PO Q4H PRN 30 Days #30 tab 07/23/21 loperamide 2 mg capsule 2 mg PO Q6H PRN #30 cap 07/24/21 insulin aspar prot-insulin aspart See Rx Instructions SUBCUT BID #15 08/08/21 100 unit/mL (70-30) subcutaneous ml pen (Novolog Mix 70-30FlexPen U-100) metformin 500 mg tablet 500 mg PO BID #60 tab 08/28/21 nystatin 100,000 unit/gram topical 1 applic TOPICAL BID PRN #60 g 09/26/21 powder Results & Data (ED) Vital Signs Vital Signs - 24 hr 10/09/21 10:02 10/09/21 10:03 10/09/21 10:10 Temperature 36.6 C Temperature Source Oral Pulse Rate 77 61 70 Pulse Rate from SpO2 Sensor 75 70 Pulse Rhythm Regular Respiratory Rate 16 25 H 25 H Respiratory Effort / Characteristics Non-Labored Spontaneous Respiratory Depth Normal Respiratory Pattern Regular Blood Pressure 133/80 Blood Pressure Mean 97 Blood Pressure Position Lying Pulse Oximetry 96 97 95 Oxygen Delivery Method Room Air Sepsis Recent Fever Within 48 Hours No Sepsis New/Unexplained Change in Mental Status No Sepsis Action Taken by Nursing No Action Required 10/09/21 10:20 10/09/21 10:30 10/09/21 10:40 Temperature Temperature Source Pulse Rate 70 74 68 Pulse Rate from SpO2 Sensor 70 73 68 Pulse Rhythm Respiratory Rate 25 H 20 19 Respiratory Effort / Characteristics Respiratory Depth Respiratory Pattern Blood Pressure Blood Pressure Mean Blood Pressure Position Pulse Oximetry 93 91 91 Oxygen Delivery Method Sepsis Recent Fever Within 48 Hours Sepsis New/Unexplained Change in Mental Status Sepsis Action Taken by Nursing 10/09/21 10:47 10/09/21 10:50 10/09/21 11:00 Temperature Temperature Source Pulse Rate 71 71 70 Pulse Rate from SpO2 Sensor 71 70 Pulse Rhythm Regular Respiratory Rate 20 23 21 Respiratory Effort / Characteristics Respiratory Depth Respiratory Pattern Blood Pressure Blood Pressure Mean Blood Pressure Position Pulse Oximetry 96 91 92 Oxygen Delivery Method Room Air Sepsis Recent Fever Within 48 Hours Sepsis New/Unexplained Change in Mental Status Sepsis Action Taken by Nursing 10/09/21 11:10 10/09/21 11:20 10/09/21 11:30 Temperature Temperature Source Pulse Rate 72 72 69 Pulse Rate from SpO2 Sensor 72 72 70 Pulse Rhythm Respiratory Rate 25 H 23 20 Respiratory Effort / Characteristics Respiratory Depth Respiratory Pattern Blood Pressure Blood Pressure Mean Blood Pressure Position Pulse Oximetry 95 96 94 Oxygen Delivery Method Sepsis Recent Fever Within 48 Hours Sepsis New/Unexplained Change in Mental Status Sepsis Action Taken by Nursing 10/09/21 11:53 10/09/21 12:00 10/09/21 12:10 Temperature Temperature Source Pulse Rate 83 72 65 Pulse Rate from SpO2 Sensor 74 71 63 Pulse Rhythm Respiratory Rate 24 Respiratory Effort / Characteristics Respiratory Depth Respiratory Pattern Blood Pressure 124/80 Blood Pressure Mean 94 Blood Pressure Position Pulse Oximetry 96 96 97 Oxygen Delivery Method Sepsis Recent Fever Within 48 Hours Sepsis New/Unexplained Change in Mental Status Sepsis Action Taken by Nursing 10/09/21 12:20 10/09/21 12:30 10/09/21 12:40 Temperature Temperature Source Pulse Rate 71 69 66 Pulse Rate from SpO2 Sensor 71 67 66 Pulse Rhythm Respiratory Rate 20 21 Respiratory Effort / Characteristics Respiratory Depth Respiratory Pattern Blood Pressure Blood Pressure Mean Blood Pressure Position Pulse Oximetry 96 97 100 Oxygen Delivery Method Sepsis Recent Fever Within 48 Hours Sepsis New/Unexplained Change in Mental Status Sepsis Action Taken by Nursing 10/09/21 12:50 10/09/21 13:00 10/09/21 13:10 Temperature Temperature Source Pulse Rate 74 73 69 Pulse Rate from SpO2 Sensor 72 Pulse Rhythm Respiratory Rate 28 H 24 23 Respiratory Effort / Characteristics Respiratory Depth Respiratory Pattern Blood Pressure Blood Pressure Mean Blood Pressure Position Pulse Oximetry 96 Oxygen Delivery Method Sepsis Recent Fever Within 48 Hours Sepsis New/Unexplained Change in Mental Status Sepsis Action Taken by Nursing 10/09/21 13:20 10/09/21 13:30 10/09/21 13:40 Temperature Temperature Source Pulse Rate 66 65 67 Pulse Rate from SpO2 Sensor Pulse Rhythm Respiratory Rate 24 17 22 Respiratory Effort / Characteristics Respiratory Depth Respiratory Pattern Blood Pressure 146/95 H Blood Pressure Mean 112 Blood Pressure Position Pulse Oximetry Oxygen Delivery Method Sepsis Recent Fever Within 48 Hours Sepsis New/Unexplained Change in Mental Status Sepsis Action Taken by Nursing 10/09/21 13:50 10/09/21 14:00 10/09/21 14:10 Temperature Temperature Source Pulse Rate 71 77 69 Pulse Rate from SpO2 Sensor Pulse Rhythm Respiratory Rate 19 14 19 Respiratory Effort / Characteristics Respiratory Depth Respiratory Pattern Blood Pressure Blood Pressure Mean Blood Pressure Position Pulse Oximetry Oxygen Delivery Method Sepsis Recent Fever Within 48 Hours Sepsis New/Unexplained Change in Mental Status Sepsis Action Taken by Nursing Laboratory Data Attestation: I reviewed the patient's lab results. Result diagrams: 10/09/21 10:05 10/09/21 10:05 Lab Results 10/09/21 10/09/21 10/09/21 Range/Units 10:05 10:05 10:05 WBC 10.43 (4.8-10.8) K/uL RBC 4.18 L (4.2-5.4) M/uL Hgb 12.9 (12.0-16.0) g/dL Hct 39.1 (37-47) % MCV 93.5 (80-100) fL MCH 30.9 (25-34) pg MCHC 33.0 (32-36) g/dL RDW Std Deviation 50.7 H (36.4-46.3) fL RDW Coeff of Abbie 15.1 H (11.5-14.5) % Plt Count 299 (130-400) K/uL MPV 11.1 H (7.4-10.4) fL Neutrophils % (Manual) 77.5 % Lymphocytes % (Manual) 13.8 % Monocytes % (Manual) 6.9 % Basophils % (Manual) 0.9 % Metamyelocytes % (Man) 0.9 % Neutrophils # (Manual) 8.08 H (1.4-6.5) K/uL Total Absolute Neuts 8.08 H (1.4-6.5) K/uL Lymphocytes # (Manual) 1.44 (1.2-3.4) K/uL Total Abs Lymphocytes 1.44 (1.2-3.4) K/uL Monocytes # (Manual) 0.72 H (0.11-0.59) K/uL Basophils # (Manual) 0.09 (0-0.2) K/uL Metamyelocytes # (Man) 0.09 H (0-0) K/uL PT 12.5 H (9.0-12.0) Seconds INR 1.3 H (0.9-1.1) Sodium 132 L (136-145) mmol/L Potassium 4.0 (3.5-5.1) mmol/L Chloride 97 L (98-107) mmol/L Carbon Dioxide 27 (21-32) mmol/L Anion Gap 8.0 (3-11) BUN 11 (7-18) mg/dl Creatinine 0.76 (0.6-1.2) mg/dl Est Cr Clr Drug Dosing 39.6 ml/min Est GFR ( Amer) 85.3 ml/min Est GFR (Non-Af Amer) 73.6 ml/min BUN/Creatinine Ratio 15.1 (10-20) Glucose 212 H (70-99) mg/dl Lactate (0.4-2.0) mmol/L Calcium 9.5 (8.5-10.1) mg/dl Phosphorus 3.1 (2.5-4.9) mg/dl Magnesium 2.2 (1.8-2.4) mg/dl Total Bilirubin 5.9 H (0.2-1) mg/dl Direct Bilirubin 4.8 H (0-0.2) mg/dl AST 127 H (15-37) U/L ALT 106 H (12-78) Alkaline Phosphatase 767 H D (45-117) U/L Ammonia (11-32) umol/L Total Protein 6.7 (6.4-8.2) gm/dl Albumin 2.6 L (3.4-5.0) gm/dl Globulin 4.1 H (2.5-4.0) gm/dl Albumin/Globulin Ratio 0.6 L (0.9-2) Lipase 151 (73-393) U/L Procalcitonin (0-0.5) ng/ml 10/09/21 10/09/21 10/09/21 Range/Units 10:05 12:11 13:02 WBC (4.8-10.8) K/uL RBC (4.2-5.4) M/uL Hgb (12.0-16.0) g/dL Hct (37-47) % MCV (80-100) fL MCH (25-34) pg MCHC (32-36) g/dL RDW Std Deviation (36.4-46.3) fL RDW Coeff of Abbie (11.5-14.5) % Plt Count (130-400) K/uL MPV (7.4-10.4) fL Neutrophils % (Manual) % Lymphocytes % (Manual) % Monocytes % (Manual) % Basophils % (Manual) % Metamyelocytes % (Man) % Neutrophils # (Manual) (1.4-6.5) K/uL Total Absolute Neuts (1.4-6.5) K/uL Lymphocytes # (Manual) (1.2-3.4) K/uL Total Abs Lymphocytes (1.2-3.4) K/uL Monocytes # (Manual) (0.11-0.59) K/uL Basophils # (Manual) (0-0.2) K/uL Metamyelocytes # (Man) (0-0) K/uL PT (9.0-12.0) Seconds INR (0.9-1.1) Sodium (136-145) mmol/L Potassium (3.5-5.1) mmol/L Chloride (98-107) mmol/L Carbon Dioxide (21-32) mmol/L Anion Gap (3-11) BUN (7-18) mg/dl Creatinine (0.6-1.2) mg/dl Est Cr Clr Drug Dosing ml/min Est GFR ( Amer) ml/min Est GFR (Non-Af Amer) ml/min BUN/Creatinine Ratio (10-20) Glucose (70-99) mg/dl Lactate 2.0 (0.4-2.0) mmol/L Calcium (8.5-10.1) mg/dl Phosphorus (2.5-4.9) mg/dl Magnesium (1.8-2.4) mg/dl Total Bilirubin (0.2-1) mg/dl Direct Bilirubin (0-0.2) mg/dl AST (15-37) U/L ALT (12-78) Alkaline Phosphatase (45-117) U/L Ammonia < 10.0 L (11-32) umol/L Total Protein (6.4-8.2) gm/dl Albumin (3.4-5.0) gm/dl Globulin (2.5-4.0) gm/dl Albumin/Globulin Ratio (0.9-2) Lipase (73-393) U/L Procalcitonin 0.44 (0-0.5) ng/ml Administered Medications Donepezil HCl (Donepezil Hcl 10 Mg Tab) 10 mg PO HS ALFREDO Stop: 11/08/21 20:59 Last Admin: 10/09/21 21:56 Dose: 10 mg Documented by: [id number] Lactated Ringer's (Lr) 1,000 mls @ 100 mls/hr IV .Q10H ALFREDO Stop: 11/08/21 14:29 Last Admin: 10/09/21 15:12 Dose: 100 mls/hr Documented by: [id number] Insulin Aspart (Insulin Aspart Per Unit) 0 units SC Q4 ALFREDO Stop: 11/08/21 18:59 Last Admin: 10/10/21 00:05 Dose: Not Given Documented by: [id number] Cosigned by: [id number] Admin: 10/09/21 19:33 Dose: Not Given Documented by: [id number] Memantine (Memantine Hcl 5 Mg Tab) 5 mg PO BID ALFREDO Stop: 11/08/21 20:59 Last Admin: 10/09/21 21:56 Dose: 5 mg Documented by: [id number] Discontinued Medications Sodium Chloride (Nss 1000ml) 1,000 mls @ 999 mls/hr IV .Q1H1M ONE Stop: 10/09/21 11:48 Last Infusion: 10/09/21 13:16 Dose: 0 mls/hr Documented by: [id number] Admin: 10/09/21 11:15 Dose: 999 mls/hr Documented by: [id number] Ioversol (Optiray 320 100ml) 94 ml IV ONCE ONE Stop: 10/09/21 11:50 Last Admin: 10/09/21 11:49 Dose: 94 ml Documented by: [id number] Imaging Data Radiologist's Impression: Cholangiopancreatography MRI 10/09/21 13:30 MR MRCP HISTORY: 81 years-old Female Painless jaundice acute right upper quadrant abdominal pain with jaundice COMPARISON: CT abdomen and pelvis of same day, chest CT 06/13/2021, CT abdomen and pelvis 12/23/2016. TECHNIQUE: MRCP without the use of IV contrast was obtained according to institutional protocol. FINDINGS: Motion degraded exam. Small pleural effusions. Bibasilar subcentimeter pulmonary nodules are better seen on the CT abdomen and pelvis study of same day. There are numerous hepatic metastatic lesions which measure over 2 cm. Small volume of abdominal pelvic ascites. Contracted gallbladder with cholelithiasis. No si gnificant intrahepatic or extrahepatic biliary ductal dilation. No choledocholithiasis identified. Numerous large metastatic lymph nodes of the upper abdomen are noted which which include the perigastric, helder hepatis and periportal distributions with additional nodes scattered throughout the mesen ori and omentum. There is probable extrinsic mass effect upon the extrahepatic biliary tree from the helder hepatis adenopathy. Partially imaged cecal mass measures up to approximately 5 cm in greatest dimension. Multifocal osseous metastatic lesions. IMPRESSION: 1. Motion degraded exam. 2. 5 cm cecal mass is suggestive of primary colorectal carcinoma. 3. Extensive metastasis throughout the abdomen and pelvis includes hepatic, osseous, mesenteric/omental and lymphatic metastatic disease. 4. Bulky conglomerate metastatic adenopathy within the helder hepatis and periportal distributions causes mass effect upon the extrahepatic biliary tree. 5. Mildly contracted gallbladder with cholelithiasis. 6. Small pleural effusions with small volume of abdominal pelvic ascites. Findings were discussed with Dr. Jose on 10/09/2021 at 3:15 PM ACT 112: Negative or not required by law. The above report was generated using voice recognition software. It may contain grammatical, syntax or spelling errors. Electronically signed by: Lino Brar M.D. 10/09/2021 3:24 PM Chest X-Ray 10/09/21 13:32 XR chest 1V portable HISTORY: 81 years-old Female pre-op acute right upper quadrant abdominal pain COMPARISON: CT abdomen and pelvis of same day, chest CT 06/13/2021 TECHNIQUE: Portable upright AP view of the chest FINDINGS: The cardiomediastinal and hilar silhouettes are unchanged. Calcified plaque of the thoracic aorta. No pneumothorax or overt pulmonary edema. Small pleural effusions with mild bibasilar densities. 2.3 cm opacity of the left lower lobe is suggestive of atelectasis. Bilateral solid pulmonary nodules are better seen on the comparison CT studies. Bones appear grossly intact. IMPRESSION: Small pleural effusions with mild bibasilar atelectasis. ACT 112: Negative or not required by law. The above report was generated using voice recognition software. It may contain grammatical, syntax or spelling errors. Electronically signed by: Lino Brar M.D. 10/09/2021 2:55 PM Discharge Plan Visit Data Chief Complaint: Illness Stated Complaint: JUNDICE, LITTLE ALTERED ED Provider: Devonte Emanuel Discharge Problem: Painless jaundice, Hyperbilirubinemia, Transaminitis, Cholelithiasis Discharge Instructions Interventions: ED Discharge Assessment Last Done: 10/09/21 18:26 Discharge Problem: Cholelithiasis Qualifiers: Cholelithiasis location: gallbladder
[2021-10-09] MEDS ORDERED: OPTIRAY 320 100ml IV ONE (11:49)
--- NOTE | 2021-10-09 12:05 | CT Scan Report ---
CT abd pelvis IV con only CLINICAL HISTORY: painless jaundice COMPARISON STUDY: 07/06/2016 CT DOSE: 303.81 mGy.cm TECHNIQUE: Standard CT of the Abdomen and Pelvis was performed with IV contrast. A dose lowering lina hnique was utilized adhering to the principles of ALARA. Contrast Volume: Optiray 320, 94 ml. The patient did not receive oral contrast. FINDINGS: Lung base: There are small bilateral pleural effusions with minimal bibasilar atelectasis. No alveola r opacities are seen. Heart size is mildly enlarged with coronary artery calcification. Abdominal cavity: There is mild abdominal ascites with fluid extending down the right paracolic gutte r into the pelvis as well. No abdominal mass or adenopathy is identified. Liver: The liver is heterogeneous in attenuation. Ill-defined enhancing lesions are seen within the l iver suspicious for metastatic disease. These range in size from 1.7 to 2.7 cm. MR of the liver would be the study of choice for further evaluation. There is no evidence for intrahepatic or duct dilatat ion. Spleen: There is homogeneous attenuation of the splenic parenchyma. There is no enhancing mass lesion . Pancreas: There is homogeneous attenuation of the pancreatic parenchyma. There is no evidence for mas s lesion or peripancreatic fluid collection. Gall Bladder: Compared to previous examination, there is again evidence for cholelithiasis. However, there is now evidence for wall thickening and pericholecystic fluid. These findings are most characte ristic of acute cholecystitis. Edematous changes extend to the subhepatic space and around the pancre atic head as well. However, no definite pancreatitis is identified. Adrenal glands: The adrenal glands are normal in size and attenuation. There is no evidence for enhan cing mass lesion. Kidneys: There is homogeneous attenuation of the renal parenchyma bilaterally. There is no evidence f or renal calculus or hydronephrosis. There is no evidence for enhancing mass. Bowel: The bowel loops are normally placed within the abdomen and pelvis without evidence for dilatat ion or obstruction. There is no evidence for mass lesion. There are no inflammatory changes present. There is no evidence for free air. Bladder: The bladder is within normal limits with no evidence for focal mass, calculus or diverticulu m. : There is no evidence for pelvic mass or adenopathy. There is again evidence for pelvic ascites. Vasculature: There is no evidence for aneurysmal dilatation of the abdominal aorta. Atherosclerotic c alcification is present. Osseous structures: There is no acute osseous pathology. Degenerative changes are seen within the spi ne. IMPRESSION: 1. CT findings most characteristic of acute cholecystitis with cholelithiasis, wall thickening and pe richolecystic edema present. 2. Edematous fluid extends into the subhepatic space and around the pancreatic head. 3. Ascites is seen in the right upper quadrant as well extending down the right paracolic gutter and into the pelvis. 4. Heterogeneous attenuation of the liver parenchyma with ill-defined enhancing lesions present suspi cious for metastatic disease. MRI of the liver would be the study of choice for further evaluation. 5. No evidence for intrahepatic or extra hepatobiliary ductal dilatation. 6. Small bilateral pleural effusions and bibasilar atelectasis. 7. Additional nonacute findings are delineated above. ACT 112: Positive. There are findings on this exam that require communication between the performing entity and the patient following Patient Test Result Information Act ([place] Act 112) guidelines. Electronically signed by: Wayne Vergara M.D. 10/09/2021 12:04 PM
[2021-10-09 12:09] LABS: ALC (manual) 1.44 K/uL (1.2-3.4); ANC (manual) 8.08 K/uL (1.4-6.5); Basophils # (manual) 0.09 K/uL (0-0.2); Basophils % (manual) 0.9 %; Lymphocytes # (manual) 1.44 K/uL (1.2-3.4); Lymphocytes % (manual) 13.8 %; Metamyelocytes # (manual) 0.09 K/uL (0-0); Metamyelocytes % (manual) 0.9 %; Monocytes # (manual) 0.72 K/uL (0.11-0.59); Monocytes % (manual) 6.9 %; Neutrophils # (manual) 8.08 K/uL (1.4-6.5); Neutrophils % (manual) 77.5 %
[2021-10-09 12:32] LABS: INR 1.3 (0.9-1.1); Prothrombin Time 12.5 Seconds (9.0-12.0)
[2021-10-09 13:20] LABS: Appearance Urine Clear (Clear); Bacteria Urine Automated Negative (Negative); Blood Urine Negative (Negative); Color Urine Dark Yellow; Epithelial Cell Urine Auto 0-5 /lpf (0-5); Glucose Urine UA Negative (Negative); Ketones Urine Negative (Negative); Leukocyte Esterase Urine Trace (Negative); Nitrite Urine Negative (Negative); Protein Urine Negative (Negative); RBC Urine Automated 0-4 /hpf (0-4); Specific Gravity Urine 1.034 (1.000-1.030); Urobilinogen Urine Negative (Negative)
[2021-10-09 13:28] LABS: Bilirubin Urine 2+ (Negative)
--- NOTE | 2021-10-09 13:36 | History & Physical Report ---
Date of Service October 09, 2021 Assessment & Plan (1) Painless jaundice: Plan: CT concerning for metastatic disease especially in setting of painless jaundice. Updated daughter regarding this finding. MRCP pending Despite CT changes I am not concerned about acute cholecystitis on exam and WBC WNL. If she spikes a fever or WBC increasing will cover with antibiotics but otherwise deferred on admission. Consult gastroenterology Consult surgery (2) Diabetes type 2, uncontrolled: Plan: Hemoglobin A1C with AM labs Consult pharmacy for glycemic control - notably current insulin regimen causing hypoglycemia at her [facility] likely due to eating less (3) Dementia: Plan: Continue donepezil and memantine (4) Depression: Plan: Continue Lexapro (5) Hypertension: Plan: Holding lisinopril in setting of acute illness and need for ERCP (6) Hyperlipidemia: Plan: Holding simvastatin as NPO except more essential medications (7) GERD (gastroesophageal reflux disease): Plan: Continue famotidine 20mg PO daily Plan: VTE Prophylaxis - deferred pending anticipated ERCP Diet - NPO Dispositon - admit to med/surg History of Present Illness Chief Complaint: Painless jaundice Primary Care Provider: Kallie Canela Stefani Parrish is an 81 year old female who presents to the ER with painless jaundice. The patient has dementia and is unsure why she was sent in today. On discussion with Omer Cunningham (she is in a personal penitentiary); they check on her daily and noticed today she appeared jaundiced therefore on discussion with her PCP recommended evaluation in the ER. They have also noticed decreased appetite over the last few days and variable glucose values with her diabetes. In the ER her LFTs were noted to be significantly elevated in an obstructive pattern with total bilirubin 5.9, AST 127, ALT 106 and ALP 767. She underwent CT with concern for liver metastatic disease and acute cholecystitis. She denies any fever or chills or abdominal pain. No nausea, vomiting or change in bowel. She was referred to medicine for admission and ongoing management of jaundice. Allergies Allergy/AdvReac Type Severity Reaction Status Date / Time bee venom protein (honey bee) Allergy Intermediate SWELLING Verified 10/09/21 11:36 codeine Allergy Intermediate HEADACHE Verified 10/09/21 11:36 Home Medications Medication Instructions Recorded Confirmed Type blood sugar diagnostic (OneTouch #100 ea 06/22/21 09/19/21 Rx Ultra Test) blood-glucose meter (Easy Touch #1 ea 06/22/21 09/19/21 Rx Glucose Monitor) lancets 30 gauge (OneTouch Delica #200 ea 06/22/21 09/19/21 Rx Lancets) pen needle, diabetic 32 gauge x #100 ea 06/22/21 09/19/21 Rx 1/4" (Novofine 32) donepezil 10 mg tablet 10 mg PO HS 30 Days #30 tab 07/23/21 10/09/21 Rx simethicone 80 mg chewable tablet 80 mg PO Q4H PRN 30 Days #30 tab 07/23/21 10/09/21 Rx loperamide 2 mg capsule 2 mg PO Q6H PRN #30 cap 07/24/21 10/09/21 Rx insulin aspar prot-insulin aspart See Rx Instructions SUBCUT BID #15 08/08/21 10/09/21 Rx 100 unit/mL (70-30) subcutaneous ml pen (Novolog Mix 70-30FlexPen U-100) metformin 500 mg tablet 500 mg PO BID #60 tab 08/28/21 10/09/21 Rx nystatin 100,000 unit/gram topical 1 applic TOPICAL BID PRN #60 g 09/26/21 10/09/21 Rx powder cholecalciferol (vitamin D3) 25 1,000 unit PO QAM 10/09/21 10/09/21 History mcg (1,000 unit) capsule diclofenac sodium 1 % topical gel 1 g TOPICAL QID PRN 10/09/21 10/09/21 History escitalopram oxalate 20 mg tablet 20 mg PO QAM 10/09/21 10/09/21 History famotidine 10 mg tablet 10 mg PO QAM 10/09/21 10/09/21 History glucosamine sulfate 2KCl 1,000 mg 1,000 mg PO BID PRN 10/09/21 10/09/21 History tablet lisinopril 10 mg tablet 10 mg PO QAM 10/09/21 10/09/21 History memantine 5 mg tablet (Namenda) 5 mg PO BID 10/09/21 10/09/21 History cqqtxaxb-rqv-ykex-FA-Ca carb-vit K 1 tab PO QAM 10/09/21 10/09/21 History 18 mg iron-400 mcg-500 mg tablet (One-A-Day Womens Formula) simvastatin 20 mg tablet 20 mg PO HS 10/09/21 10/09/21 History Past Med/Surg History Medical History Dehydration Diverticulosis DSAP (disseminated superficial actinic porokeratosis) Endometrial adenocarcinoma Fall from standing Fatigue Hearing difficulty History of actinic keratosis History of cellulitis 2nd toe History of lymphocytosis History of osteopenia History of postmenopausal bleeding History of solar lentigo Hoarding behavior Hyperglycemia Hypokalemia Hypomagnesemia Lung nodules Murmur Near syncope Solitary thyroid nodule Tubular adenoma of colon Weakness Weakness Surgical History H/O colonoscopy History of hysterectomy with bilateral oophorectomy S/P appendectomy S/P dilation and curettage Status post repair of nerve carpal tunnel Family History Sister Anxiety Depression Mother Gallbladder disease Diabetes Aunt Diabetes Father Cardiac disorder Myocardial infarction Skin cancer Family/Other Stroke Grandmother (Maternal) Cardiac disorder Diabetes and maternal great grandmother Daughter Diabetes Denies family history of Ovarian cancer Prostate cancer Crohn's disease Breast cancer Colorectal cancer Ulcerative colitis Social History Smoking Status: Never smoker Second Hand Exposure: No; Hx Alcohol Use: No Hx Substance Use: No Preferred Language: [place] Communication Ability: Effective Care Giver Required: No Beliefs That Will Affect Care: None marital status: / Current Living Situation: Family current occupational status: retired How many Children do You have: 1 Feels Safe at Home: Yes Childhood Exposure to Second-Hand Smoke: No caffeine: Yes Dental Care, Regularly: Yes Physical Activity Frequency: 3-4 Times per Week Seatbelt Use: always Sunscreen Use: No Assistive Devices: Walker Review of Systems Review of Systems: Unobtainable due to cognitive status Physical Exam Constitutional: WD/WN, vitals as above Eyes: sclerae not anicteric ENMT: Mouth: + dry oral mucous membranes Respiratory: normal respiratory effort, lungs clear to auscultation Cardiovascular: RRR, no murmur, no edema Gastrointestinal (Abdomen): Inspection/Auscultation: normal bowel sounds Percussion/Palpation: abdomen soft; abdomen nontender, no guarding and abdomen not rigid Skin: + jaundice Neurologic: moves all extremities, awake and + confused (at baseline per her daughters description) Psychiatric: Orientation: alert, oriented to person (self) and oriented to place (aware she is in hospital); + not oriented to time Genitourinary: no CVA tenderness Results & Data Results & Data ([place]) Vital Signs (Past 12 Hours) Vital Signs Temp Pulse Resp BP Pulse Ox 10/09/21 12:30 69 22 97 10/09/21 12:20 71 20 96 10/09/21 12:10 65 21 97 10/09/21 12:00 72 21 124/80 96 10/09/21 11:53 83 24 96 10/09/21 11:30 69 20 94 10/09/21 11:20 72 23 96 10/09/21 11:10 72 25 H 95 10/09/21 11:00 70 21 92 10/09/21 10:50 71 23 91 10/09/21 10:47 71 20 96 10/09/21 10:40 68 19 91 10/09/21 10:30 74 20 91 10/09/21 10:20 70 25 H 93 10/09/21 10:10 70 25 H 95 10/09/21 10:03 61 25 H 97 10/09/21 10:02 36.6 C 77 16 133/[address] abd pelvis IV con only CLINICAL HISTORY: painless jaundice COMPARISON STUDY: 07/06/2016 CT DOSE: 303.81 mGy.cm TECHNIQUE: Standard CT of the Abdomen and Pelvis was performed with IV contrast. A dose lowering technique was utilized adhering to the principles of ALARA. Contrast Volume: Optiray 320, 94 ml. The patient did not receive oral contrast. FINDINGS: Lung base: There are small bilateral pleural effusions with minimal bibasilar atelectasis. No alveolar opacities are seen. Heart size is mildly enlarged with coronary artery calcification. Abdominal cavity: There is mild abdominal ascites with fluid extending down the right paracolic gutter into the pelvis as well. No abdominal mass or adenopathy is identified. Liver: The liver is heterogeneous in attenuation. Ill-defined enhancing lesions are seen within the liver suspicious for metastatic disease. These range in size from 1.7 to 2.7 cm. MR of the liver would be the study of choice for further evaluation. There is no evidence for intrahepatic or duct dilatation. Spleen: There is homogeneous attenuation of the splenic parenchyma. There is no enhancing mass lesion. Pancreas: There is homogeneous attenuation of the pancreatic parenchyma. There is no evidence for mass lesion or peripancreatic fluid collection. Gall Bladder: Compared to previous examination, there is again evidence for cholelithiasis. However, there is now evidence for wall thickening and pericholecystic fluid. These findings are most characteristic of acute cholecystitis. Edematous changes extend to the subhepatic space and around the pancreatic head as well. However, no definite pancreatitis is identified. Adrenal glands: The adrenal glands are normal in size and attenuation. There is no evidence for enhancing mass lesion. Kidneys: There is homogeneous attenuation of the renal parenchyma bilaterally. There is no evidence for renal calculus or hydronephrosis. There is no evidence for enhancing mass. Bowel: The bowel loops are normally placed within the abdomen and pelvis without evidence for dilatation or obstruction. There is no evidence for mass lesion. There are no inflammatory changes present. There is no evidence for free air. Bladder: The bladder is within normal limits with no evidence for focal mass, calculus or diverticulum. : There is no evidence for pelvic mass or adenopathy. There is again evidence for pelvic ascites. Vasculature: There is no evidence for aneurysmal dilatation of the abdominal aorta. Atherosclerotic calcification is present. Osseous structures: There is no acute osseous pathology. Degenerative changes are seen within the spine. IMPRESSION: 1. CT findings most characteristic of acute cholecystitis with cholelithiasis, wall thickening and pericholecystic edema present. 2. Edematous fluid extends into the subhepatic space and around the pancreatic head. 3. Ascites is seen in the right upper quadrant as well extending down the right paracolic gutter and into the pelvis. 4. Heterogeneous attenuation of the liver parenchyma with ill-defined enhancing lesions present suspicious for metastatic disease. MRI of the liver would be the study of choice for further evaluation. 5. No evidence for intrahepatic or extra hepatobiliary ductal dilatation. 6. Small bilateral pleural effusions and bibasilar atelectasis. 7. Additional nonacute findings are delineated above. Medications Administered ER Medications Given: None ECG Rate (beats per minute): 75 Rhythm: sinus with SA Findings: no acute ischemic change Comparison ECG Date: from (June 13, 2021) Change: no significant change Code Status & VTE Plan Code Status DNR/DNI VTE Prophylaxis Plan VTE Prophylaxis will be ordered: No PG Care Time/CCT Total # of Minutes Spent Total Time Spent with Patient: Total time spent is greater than 50% in coordination of care (as documented) at patient's floor/unit and/or counseling patient: Coding Level of Care Code 94692 Initial Inpt Care Lvl 3 Diagnoses Painless jaundice R17 Diabetes type 2, uncontrolled E11.65 Dementia F03.90 Depression F32.9 Hypertension I10 Hyperlipidemia E78.5 GERD (gastroesophageal reflux disease) K21.9
--- NOTE | 2021-10-09 14:56 | XRay Report ---
XR chest 1V portable HISTORY: 81 years-old Female pre-op acute right upper quadrant abdominal pain COMPARISON: CT abdomen and pelvis of same day, chest CT 06/13/2021 TECHNIQUE: Portable upright AP view of the chest FINDINGS: The cardiomediastinal and hilar silhouettes are unchanged. Calcified plaque of the thoracic aorta. No pneumothorax or overt pulmonary edema. Small pleural effusions with mild bibasilar densities. 2.3 cm opacity of the left lower lobe is suggestive of atelectasis. Bilateral solid pulmonary nodules are b chris seen on the comparison CT studies. Bones appear grossly intact. IMPRESSION: Small pleural effusions with mild bibasilar atelectasis. ACT 112: Negative or not required by law. The above report was generated using voice recognition software. It may contain grammatical, syntax o r spelling errors. Electronically signed by: Lino Brar M.D. 10/09/2021 2:55 PM
--- NOTE | 2021-10-09 15:04 | Surgery Consultation ---
Date of Consultation October 09, 2021 Assessment & Plan (1) Painless jaundice: MRCP pending. My suspicion is she has metastatic pancreatic cancer. She would be a nonoperative candidate but we will follow along until we get the diagnosis. I agree with Dr. Jose this does not appear to be acute cholecystitis. No indication for urgent surgical intervention. We will follow along for now. (2) Dementia: (3) Diabetes type 2, uncontrolled: (4) Hypertension: (5) GERD (gastroesophageal reflux disease): (6) Elevated LFTs: History of Present Illness History of Present Illness 81-year-old slightly confused female brought from an assisted living type facility in [facility] because of painless jaundice. She denies any abdominal pain. She believes her appetite has been good and she has been eating normally. She has elevated LFTs and a CT scan worrisome for what I suspect is metastatic pancreatic cancer. Allergies Allergy/AdvReac Type Severity Reaction Status Date / Time bee venom protein (honey bee) Allergy Intermediate SWELLING Verified 10/09/21 11:36 codeine Allergy Intermediate HEADACHE Verified 10/09/21 11:36 Home Medications Medication Instructions Recorded Confirmed Type blood sugar diagnostic (OneTouch #100 ea 06/22/21 09/19/21 Rx Ultra Test) blood-glucose meter (Easy Touch #1 ea 06/22/21 09/19/21 Rx Glucose Monitor) lancets 30 gauge (OneTouch Delica #200 ea 06/22/21 09/19/21 Rx Lancets) pen needle, diabetic 32 gauge x #100 ea 06/22/21 09/19/21 Rx 1/4" (Novofine 32) donepezil 10 mg tablet 10 mg PO HS 30 Days #30 tab 07/23/21 10/09/21 Rx simethicone 80 mg chewable tablet 80 mg PO Q4H PRN 30 Days #30 tab 07/23/21 10/09/21 Rx loperamide 2 mg capsule 2 mg PO Q6H PRN #30 cap 07/24/21 10/09/21 Rx insulin aspar prot-insulin aspart See Rx Instructions SUBCUT BID #15 08/08/21 10/09/21 Rx 100 unit/mL (70-30) subcutaneous ml pen (Novolog Mix 70-30FlexPen U-100) metformin 500 mg tablet 500 mg PO BID #60 tab 08/28/21 10/09/21 Rx nystatin 100,000 unit/gram topical 1 applic TOPICAL BID PRN #60 g 09/26/21 10/09/21 Rx powder cholecalciferol (vitamin D3) 25 1,000 unit PO QAM 10/09/21 10/09/21 History mcg (1,000 unit) capsule diclofenac sodium 1 % topical gel 1 g TOPICAL QID PRN 10/09/21 10/09/21 History escitalopram oxalate 20 mg tablet 20 mg PO QAM 10/09/21 10/09/21 History famotidine 10 mg tablet 10 mg PO QAM 10/09/21 10/09/21 History glucosamine sulfate 2KCl 1,000 mg 1,000 mg PO BID PRN 10/09/21 10/09/21 History tablet lisinopril 10 mg tablet 10 mg PO QAM 10/09/21 10/09/21 History memantine 5 mg tablet (Namenda) 5 mg PO BID 10/09/21 10/09/21 History wzeanxyi-jix-rodc-FA-Ca carb-vit K 1 tab PO QAM 10/09/21 10/09/21 History 18 mg iron-400 mcg-500 mg tablet (One-A-Day Womens Formula) simvastatin 20 mg tablet 20 mg PO HS 10/09/21 10/09/21 History Patient History Medical History Dehydration Diverticulosis DSAP (disseminated superficial actinic porokeratosis) Endometrial adenocarcinoma Fall from standing Fatigue Hearing difficulty History of actinic keratosis History of cellulitis History of lymphocytosis History of osteopenia History of postmenopausal bleeding History of solar lentigo Hoarding behavior Hyperglycemia Hypokalemia Hypomagnesemia Lung nodules Murmur Near syncope Solitary thyroid nodule Tubular adenoma of colon Weakness Weakness Surgical History H/O colonoscopy History of hysterectomy with bilateral oophorectomy S/P appendectomy S/P dilation and curettage Status post repair of nerve Family History Sister Anxiety Depression Mother Gallbladder disease Diabetes Aunt Diabetes Father Cardiac disorder Myocardial infarction Skin cancer Family/Other Stroke Grandmother (Maternal) Cardiac disorder Diabetes and maternal great grandmother Daughter Diabetes Denies family history of Ovarian cancer Prostate cancer Crohn's disease Breast cancer Colorectal cancer Ulcerative colitis Social History (Updated 09/19/21 @ 14:41 by Elisabeth Alegria LPN) Smoking Status: Never smoker Second Hand Exposure: No; Hx Alcohol Use: No Hx Substance Use: No Preferred Language: Nicaraguan Communication Ability: Effective Orderlies Teacher Required: No Beliefs That Will Affect Care: None marital status: / Current Living Situation: Family current occupational status: retired How many Children do You have: 1 Feels Safe at Home: Yes Childhood Exposure to Second-Hand Smoke: No caffeine: Yes Dental Care, Regularly: Yes Physical Activity Frequency: 3-4 Times per Week Seatbelt Use: always Sunscreen Use: No Assistive Devices: Walker Review of Systems Review of Systems: All systems reviewed & are unremarkable except as noted in HPI & below Physical Exam Constitutional: no acute distress and not ill appearing She is alert and oriented but somewhat confused and forgetful. She is a relatively poor historian. Eyes: PERRL, conjunctivae normal, anicteric sclerae EOM intact bilaterally ENMT: external ear and nose normal, oropharynx normal Ears: no hearing impairment Sclera icteric Neck: trachea midline, no thyromegaly Respiratory: normal respiratory effort; no respiratory distress and does not use accessory muscles Cardiovascular: Rate/Rhythm: regular rate and regular rhythm Gastrointestinal (Abdomen): normal bowel sounds, soft, nontender, no hepatosplenomegaly No palpable abnormalities. Nontender Skin: no rashes, warm and dry Psychiatric: Orientation: alert, oriented x 3 and cooperative Results & Data ([facility]) Vital Signs (Past 12 Hours) Vital Signs Temp Pulse Resp BP Pulse Ox 10/09/21 12:30 69 22 97 10/09/21 12:20 71 20 96 10/09/21 12:10 65 21 97 10/09/21 12:00 72 21 124/80 96 10/09/21 11:53 83 24 96 10/09/21 11:30 69 20 94 10/09/21 11:20 72 23 96 10/09/21 11:10 72 25 H 95 10/09/21 11:00 70 21 92 10/09/21 10:50 71 23 91 10/09/21 10:47 71 20 96 10/09/21 10:40 68 19 91 10/09/21 10:30 74 20 91 10/09/21 10:20 70 25 H 93 10/09/21 10:10 70 25 H 95 10/09/21 10:03 61 25 H 97 10/09/21 10:02 36.6 C 77 16 133/80 96 PG Care Time/CCT Total # of Minutes Spent Total Time Spent with Patient: Total time spent is greater than 50% in coordination of care (as documented) at patient's floor/unit and/or counseling patient: Coding Level of Care Code 73429 Initial Inpt Care Lvl 3 Diagnoses Painless jaundice R17 Dementia F03.90 Diabetes type 2, uncontrolled E11.65 Hypertension I10 GERD (gastroesophageal reflux disease) K21.9 Elevated LFTs R79.89
[2021-10-09] MEDS: LACTATED RINGER'S 1,000 ML IV SCH (15:12)
--- NOTE | 2021-10-09 15:25 | Magnetic Resonance Report ---
MR MRCP HISTORY: 81 years-old Female Painless jaundice acute right upper quadrant abdominal pain with jaundi ce COMPARISON: CT abdomen and pelvis of same day, chest CT 06/13/2021, CT abdomen and pelvis 12/23/2016. TECHNIQUE: MRCP without the use of IV contrast was obtained according to institutional protocol. FINDINGS: Motion degraded exam. Small pleural effusions. Bibasilar subcentimeter pulmonary nodules are better s een on the CT abdomen and pelvis study of same day. There are numerous hepatic metastatic lesions whi ch measure over 2 cm. Small volume of abdominal pelvic ascites. Contracted gallbladder with cholelith iasis. No significant intrahepatic or extrahepatic biliary ductal dilation. No choledocholithiasis id entified. Numerous large metastatic lymph nodes of the upper abdomen are noted which which include th e perigastric, helder hepatis and periportal distributions with additional nodes scattered throughout the mesentery and omentum. There is probable extrinsic mass effect upon the extrahepatic biliary tree from the helder hepatis adenopathy. Partially imaged cecal mass measures up to approximately 5 cm in greatest dimension. Multifocal osseo us metastatic lesions. IMPRESSION: 1. Motion degraded exam. 2. 5 cm cecal mass is suggestive of primary colorectal carcinoma. 3. Extensive metastasis throughout the abdomen and pelvis includes hepatic, osseous, mesenteric/oment al and lymphatic metastatic disease. 4. Bulky conglomerate metastatic adenopathy within the helder hepatis and periportal distributions cau ses mass effect upon the extrahepatic biliary tree. 5. Mildly contracted gallbladder with cholelithiasis. 6. Small pleural effusions with small volume of abdominal pelvic ascites. Findings were discussed with Dr. Jose on 10/09/2021 at 3:15 PM ACT 112: Negative or not required by law. The above report was generated using voice recognition software. It may contain grammatical, syntax o r spelling errors. Electronically signed by: Lino Brar M.D. 10/09/2021 3:24 PM
[2021-10-09] MEDS ORDERED: PHARMACY GLYCEMIC MGMT CONSULT PRN (18:00)
[2021-10-09] MEDS ORDERED: ACETAMINOPHEN 325 MG TAB PO PRN (18:00)
[2021-10-09] MEDS ORDERED: POLYETHYLENE (MIRALAX) 17 GM PACK PO PRN (18:00)
[2021-10-09] MEDS ORDERED: ONDANSETRON INJ 2 MG/ML 2 ML VIAL IV PRN (18:00)
[2021-10-09] MEDS ORDERED: CARBOHYDRATES FOR HYPOGLYCEMIA PO PRN (18:45)
[2021-10-09] MEDS ORDERED: DEXTROSE 50% 50 ML SYRINGE IV PRN (18:45)
[2021-10-09] MEDS ORDERED: GLUCAGON FOR INJ 1 MG VIAL IM PRN (18:45)
[2021-10-09] MEDS ORDERED: GLUCOSE 10 TABS/TUBE PO PRN (18:45)
[2021-10-09] MEDS ORDERED: GLUCOSE 40% GEL 15 GM TUBE PO PRN (18:45)
[2021-10-09] MEDS: INSULIN ASPART PER UNIT SC SCH (19:33)
[2021-10-09] MEDS: DONEPEZIL HCL 10 MG TAB PO SCH (21:56)
[2021-10-09] MEDS: MEMANTINE HCL 5 MG TAB PO SCH (21:56)
[2021-10-10] MEDS: INSULIN ASPART PER UNIT SC SCH ×6 (00:05→21:04)
[2021-10-10] MEDS: LACTATED RINGER'S 1,000 ML IV SCH ×3 (01:47→21:12)
[2021-10-10 07:33] LABS: Basophils # (auto) 0.01 K/uL (0-0.2); Basophils % (auto) 0.1 %; Eosinophils # (auto) 0.08 K/uL (0-0.5); Eosinophils % (auto) 0.9 %; Hemoglobin 11.5 g/dL (12.0-16.0); Immature Granulocytes # (auto) 0.04 K/uL (0.00-0.02); Immature Granulocytes % (auto) 0.4 %; Mean Corpuscular Hemoglobin 30.1 pg (25-34); Mean Corpuscular Hgb Conc 32.9 g/dL (32-36); Mean Corpuscular Volume 91.6 fL (80-100); Mean Platelet Volume 10.5 fL (7.4-10.4); Monocytes # (auto) 0.69 K/uL (0.11-0.59); Monocytes % (auto) 7.7 %; Neutrophils # (auto) 7.27 K/uL (1.4-6.5); Neutrophils % (auto) 80.9 %; Platelet Count 252 K/uL (130-400); RDW Coefficient of Variation 15.1 % (11.5-14.5); RDW Standard Deviation 50.7 fL (36.4-46.3); Red Blood Count 3.82 M/uL (4.2-5.4); White Blood Count 8.99 K/uL (4.8-10.8)
[2021-10-10 08:20] LABS: Albumin Globulin Ratio 0.6 (0.9-2); Albumin Level 2.1 gm/dl (3.4-5.0); BUN Creatinine Ratio 15.8 (10-20); Bilirubin,Total 7.8 mg/dl (0.2-1); Calcium 9.1 mg/dl (8.5-10.1); Creatinine Clr Calc Pharmacy 56.8 ml/min; Est GFR (African American) 103.2 ml/min; Globulin 3.6 gm/dl (2.5-4.0); Potassium 3.9 mmol/L (3.5-5.1); Total Protein 5.7 gm/dl (6.4-8.2)
[2021-10-10 08:33] LABS: Estimated Average Glucose 148 mg/dl; Hemoglobin A1C 6.8 % (4.5-5.6)
--- NOTE | 2021-10-10 08:33 | Gastrointestinal Consultation ---
Date of Consultation October 10, 2021 Assessment & Plan (1) Painless jaundice: 81 year old female with painless jaundice, imaging with a 5 cm cecal mess, adenopathy and concern for metastatic disease Will arrange EUS w/ FNA and possible ERCP w/ stenting today given elevated LFTs Please keep NPO Supervising Physician Co-Signing Physician Notes I performed a history and physical examination of the patient today, including specifically on physical exam - soft abdomen. I have discussed the patient's management with the advanced practitioner. Please refer to the nurse practitioner's note for the documented findings and plan of care. EUS/ERCP today. Patient was explained in detail regarding risks, benefits, limitations and alternatives of the above endoscopic procedure. Risks of intravenous sedation used for procedure were also explained. Risks include, but not limited to perforation, bleeding, infection, respiratory distress, cardiac arrest and . Patient is also aware about the possibility of missed lesion. Patient's questions were answered. The patient verbalized understanding the information and agreed to undergo the procedure. History of Present Illness Reason for Consultation: painless jaundice Requesting Physician: Evgeny Attending Physician: Jaylen Pepper MD History of Present Illness 81 year old female admitted thought the ED from [facility] with painless jaundice. GI asked to evaluate given abnormal imaging. Pt was seen and evaluated, chart reviewed. Feeling well. Denies abd pain. No nausea,vomiting. Questions if she has had some weight loss. Denies change in bowel habits. No black or bloody stools Denies prior EGD/Colonoscopy CTAP w/ CT findings most characteristic of acute cholecystitis with cholelithiasis, wall thickening and pericholecystic edema present. . Edematous fluid extends into the subhepatic space and around the pancreatic head. Ascites is seen in the right upper quadrant as well extending down the right paracolic gutter and into the pelvis. Heterogeneous attenuation of the liver parenchyma with ill-defined enhancing lesions present suspicious for metastatic disease. MRI of the liver would be the study of choice for further evaluation. . No evidence for intrahepatic or extra hepatobiliary ductal dilatation. Small bilateral pleural effusions and bibasilar atelectasis. MRI w/ 5 cm cecal mass is suggestive of primary colorectal carcinoma.. Extensive metastasis throughout the abdomen and pelvis includes hepatic, osseous, mesenteric/omental and lymphatic metastatic disease. Bulky conglomerate metastatic adenopathy within the helder hepatis and periportal distributions causes mass effect upon the xtrahepatic biliary tree.. Mildly contracted gallbladder with cholelithiasis. . Small pleural effusions with small volume of abdominal pelvic ascites. Allergies Allergy/AdvReac Type Severity Reaction Status Date / Time bee venom protein (honey bee) Allergy Intermediate SWELLING Verified 10/09/21 11:36 codeine Allergy Intermediate HEADACHE Verified 10/09/21 11:36 Home Medications Medication Instructions Recorded Confirmed Type blood sugar diagnostic (OneTouch #100 ea 06/22/21 09/19/21 Rx Ultra Test) blood-glucose meter (Easy Touch #1 ea 06/22/21 09/19/21 Rx Glucose Monitor) lancets 30 gauge (OneTouch Delica #200 ea 06/22/21 09/19/21 Rx Lancets) pen needle, diabetic 32 gauge x #100 ea 06/22/21 09/19/21 Rx 1/4" (Novofine 32) donepezil 10 mg tablet 10 mg PO HS 30 Days #30 tab 07/23/21 10/09/21 Rx simethicone 80 mg chewable tablet 80 mg PO Q4H PRN 30 Days #30 tab 07/23/21 10/09/21 Rx loperamide 2 mg capsule 2 mg PO Q6H PRN #30 cap 07/24/21 10/09/21 Rx insulin aspar prot-insulin aspart See Rx Instructions SUBCUT BID #15 08/08/21 10/09/21 Rx 100 unit/mL (70-30) subcutaneous ml pen (Novolog Mix 70-30FlexPen U-100) metformin 500 mg tablet 500 mg PO BID #60 tab 08/28/21 10/09/21 Rx nystatin 100,000 unit/gram topical 1 applic TOPICAL BID PRN #60 g 09/26/21 10/09/21 Rx powder cholecalciferol (vitamin D3) 25 1,000 unit PO QAM 10/09/21 10/09/21 History mcg (1,000 unit) capsule diclofenac sodium 1 % topical gel 1 g TOPICAL QID PRN 10/09/21 10/09/21 History escitalopram oxalate 20 mg tablet 20 mg PO QAM 10/09/21 10/09/21 History famotidine 10 mg tablet 10 mg PO QAM 10/09/21 10/09/21 History glucosamine sulfate 2KCl 1,000 mg 1,000 mg PO BID PRN 10/09/21 10/09/21 History tablet lisinopril 10 mg tablet 10 mg PO QAM 10/09/21 10/09/21 History memantine 5 mg tablet (Namenda) 5 mg PO BID 10/09/21 10/09/21 History [id number]-[id number]-FA-Ca carb-vit K 1 tab PO QAM 10/09/21 10/09/21 History 18 mg iron-400 mcg-500 mg tablet (One-A-Day Womens Formula) simvastatin 20 mg tablet 20 mg PO HS 10/09/21 10/09/21 History Patient History Medical History Dehydration Diverticulosis DSAP (disseminated superficial actinic porokeratosis) Endometrial adenocarcinoma Fall from standing Fatigue Hearing difficulty History of actinic keratosis History of cellulitis 2nd toe History of lymphocytosis History of osteopenia History of postmenopausal bleeding History of solar lentigo Hoarding behavior Hyperglycemia Hypokalemia Hypomagnesemia Lung nodules Murmur Near syncope Solitary thyroid nodule Tubular adenoma of colon Weakness Weakness Surgical History H/O colonoscopy History of hysterectomy with bilateral oophorectomy S/P appendectomy S/P dilation and curettage Status post repair of nerve carpal tunnel Family History Sister Anxiety Depression Mother Gallbladder disease Diabetes Aunt Diabetes Father Cardiac disorder Myocardial infarction Skin cancer Family/Other Stroke Grandmother (Maternal) Cardiac disorder Diabetes and maternal great grandmother Daughter Diabetes Denies family history of Ovarian cancer Prostate cancer Crohn's disease Breast cancer Colorectal cancer Ulcerative colitis Social History Smoking Status: Never smoker Second Hand Exposure: No; Hx Alcohol Use: No Hx Substance Use: No Preferred Language: Maltese Communication Ability: Effective 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 Beliefs That Will Affect Care: None marital status: / Current Living Situation: Family current occupational status: retired How many Children do You have: 1 Feels Safe at Home: Yes Childhood Exposure to Second-Hand Smoke: No caffeine: Yes Dental Care, Regularly: Yes Physical Activity Frequency: 3-4 Times per Week Seatbelt Use: always Sunscreen Use: No Assistive Devices: Walker Review of Systems Review of Systems: All systems reviewed & are unremarkable except as noted in HPI & below Physical Exam Constitutional: WD/WN, vitals as above Respiratory: normal respiratory effort, lungs clear to auscultation Cardiovascular: Rate/Rhythm: regular rate and regular rhythm Gastrointestinal (Abdomen): normal bowel sounds, soft, nontender, no hepatosplenomegaly Skin: no rashes, warm and dry Results & Data ([facility]) Vital Signs (Past 12 Hours) Vital Signs Temp Pulse Pulse Resp BP BP Pulse Ox 10/10/21 07:20 36.8 C 65 18 146/78 H 93 10/10/21 06:30 60 22 126/76 92 10/10/21 06:00 61 22 129/65 92 10/10/21 05:30 60 21 128/74 91 10/10/21 04:30 62 19 89/55 L 94 10/10/21 03:30 69 19 134/80 94 10/10/21 03:00 64 20 136/91 94 10/10/21 02:30 62 19 118/66 92 10/10/21 02:00 61 21 126/71 92 10/10/21 01:00 63 20 125/74 92 10/10/21 00:30 60 21 121/73 92 10/10/21 00:00 69 25 H 161/81 H 96 10/09/21 23:30 62 21 129/74 94 10/09/21 23:00 66 23 141/73 H 92 10/09/21 20:40 67 20 10/09/21 20:30 66 21 Laboratory Results 10/10/21 10/10/21 10/10/21 Range/Units 08:02 07:19 07:19 WBC (4.8-10.8) K/uL RBC (4.2-5.4) M/uL Hgb (12.0-16.0) g/dL Hct (37-47) % MCV (80-100) fL MCH (25-34) pg MCHC (32-36) g/dL RDW Std Deviation (36.4-46.3) fL RDW Coeff of Abbie (11.5-14.5) % Plt Count (130-400) K/uL MPV (7.4-10.4) fL Immature Gran % (Auto) % Neut % (Auto) % Lymph % (Auto) % Smyth % (Auto) % Eos % (Auto) % Baso % (Auto) % Neut # (Auto) (1.4-6.5) K/uL Lymph # (Auto) (1.2-3.4) K/uL Smyth # (Auto) (0.11-0.59) K/uL Eos # (Auto) (0-0.5) K/uL Baso # (Auto) (0-0.2) K/uL Immature Gran # (Auto) (0.00-0.02) K/uL Neutrophils % (Manual) % Lymphocytes % (Manual) % Monocytes % (Manual) % Basophils % (Manual) % Metamyelocytes % (Man) % Neutrophils # (Manual) (1.4-6.5) K/uL Total Absolute Neuts (1.4-6.5) K/uL Lymphocytes # (Manual) (1.2-3.4) K/uL Total Abs Lymphocytes (1.2-3.4) K/uL Monocytes # (Manual) (0.11-0.59) K/uL Basophils # (Manual) (0-0.2) K/uL Metamyelocytes # (Man) (0-0) K/uL PT (9.0-12.0) Seconds INR (0.9-1.1) Sodium 134 L (136-145) mmol/L Potassium 3.9 (3.5-5.1) mmol/L Chloride 102 (98-107) mmol/L Carbon Dioxide 26 (21-32) mmol/L Anion Gap 6.0 (3-11) BUN 8 (7-18) mg/dl Creatinine 0.53 L (0.6-1.2) mg/dl Est Cr Clr Drug Dosing 56.8 ml/min Est GFR ( Amer) 103.2 ml/min Est GFR (Non-Af Amer) 89.0 ml/min BUN/Creatinine Ratio 15.8 (10-20) Glucose 113 H (70-99) mg/dl POC Glucose 119 H (70-99) mg/dl Estimat Average Glucose Pending Hemoglobin A1c Pending Lactate (0.4-2.0) mmol/L Calcium 9.1 (8.5-10.1) mg/dl Phosphorus (2.5-4.9) mg/dl Magnesium (1.8-2.4) mg/dl Total Bilirubin 7.8 H (0.2-1) mg/dl Direct Bilirubin (0-0.2) mg/dl AST 91 H (15-37) U/L ALT 78 (12-78) Alkaline Phosphatase 700 H D (45-117) U/L Ammonia (11-32) umol/L Total Protein 5.7 L (6.4-8.2) gm/dl Albumin 2.1 L (3.4-5.0) gm/dl Globulin 3.6 (2.5-4.0) gm/dl Albumin/Globulin Ratio 0.6 L (0.9-2) Lipase 87 (73-393) U/L Procalcitonin (0-0.5) ng/ml Urine Color Urine Appearance (Clear) Urine pH (4.5-7.5) Ur Specific [place] (1.000-1.030) Urine Protein (Negative) Urine Glucose (UA) (Negative) Urine Ketones (Negative) Urine Blood (Negative) Urine Nitrite (Negative) Urine Bilirubin (Negative) Urine Urobilinogen (Negative) Ur Leukocyte Esterase (Negative) Urine WBC (Auto) (0-5) /hpf Urine RBC (Auto) (0-4) /hpf U Hyaline Cast (Auto) (0-5) /lpf U Epithel Cells (Auto) (0-5) /lpf Urine Bacteria (Auto) (Negative) SARS-CoV-2, RNA, NAAT (NEGATIVE) 10/10/21 10/10/21 10/09/21 Range/Units 07:19 03:33 Unknown WBC 8.99 (4.8-10.8) K/uL RBC 3.82 L (4.2-5.4) M/uL Hgb 11.5 L (12.0-16.0) g/dL Hct 35.0 L (37-47) % MCV 91.6 (80-100) fL MCH 30.1 (25-34) pg MCHC 32.9 (32-36) g/dL RDW Std Deviation 50.7 H (36.4-46.3) fL RDW Coeff of Abbie 15.1 H (11.5-14.5) % Plt Count 252 (130-400) K/uL MPV 10.5 H (7.4-10.4) fL Immature Gran % (Auto) 0.4 % Neut % (Auto) 80.9 % Lymph % (Auto) 10.0 % Smyth % (Auto) 7.7 % Eos % (Auto) 0.9 % Baso % (Auto) 0.1 % Neut # (Auto) 7.27 H (1.4-6.5) K/uL Lymph # (Auto) 0.90 L (1.2-3.4) K/uL Smyth # (Auto) 0.69 H (0.11-0.59) K/uL Eos # (Auto) 0.08 (0-0.5) K/uL Baso # (Auto) 0.01 (0-0.2) K/uL Immature Gran # (Auto) 0.04 H (0.00-0.02) K/uL Neutrophils % (Manual) % Lymphocytes % (Manual) % Monocytes % (Manual) % Basophils % (Manual) % Metamyelocytes % (Man) % Neutrophils # (Manual) (1.4-6.5) K/uL Total Absolute Neuts (1.4-6.5) K/uL Lymphocytes # (Manual) (1.2-3.4) K/uL Total Abs Lymphocytes (1.2-3.4) K/uL Monocytes # (Manual) (0.11-0.59) K/uL Basophils # (Manual) (0-0.2) K/uL Metamyelocytes # (Man) (0-0) K/uL PT (9.0-12.0) Seconds INR (0.9-1.1) Sodium (136-145) mmol/L Potassium (3.5-5.1) mmol/L Chloride (98-107) mmol/L Carbon Dioxide (21-32) mmol/L Anion Gap (3-11) BUN (7-18) mg/dl Creatinine (0.6-1.2) mg/dl Est Cr Clr Drug Dosing ml/min Est GFR ( Amer) ml/min Est GFR (Non-Af Amer) ml/min BUN/Creatinine Ratio (10-20) Glucose (70-99) mg/dl POC Glucose 94 (70-99) mg/dl Estimat Average Glucose Hemoglobin A1c Lactate (0.4-2.0) mmol/L Calcium (8.5-10.1) mg/dl Phosphorus (2.5-4.9) mg/dl Magnesium (1.8-2.4) mg/dl Total Bilirubin (0.2-1) mg/dl Direct Bilirubin (0-0.2) mg/dl AST (15-37) U/L ALT (12-78) Alkaline Phosphatase (45-117) U/L Ammonia (11-32) umol/L Total Protein (6.4-8.2) gm/dl Albumin (3.4-5.0) gm/dl Globulin (2.5-4.0) gm/dl Albumin/Globulin Ratio (0.9-2) Lipase (73-393) U/L Procalcitonin (0-0.5) ng/ml Urine Color Dark Yellow Urine Appearance Clear (Clear) Urine pH 5.0 (4.5-7.5) Ur Specific [place] 1.034 H (1.000-1.030) Urine Protein Negative (Negative) Urine Glucose (UA) Negative (Negative) Urine Ketones Negative (Negative) Urine Blood Negative (Negative) Urine Nitrite Negative (Negative) Urine Bilirubin 2+ H (Negative) Urine Urobilinogen Negative (Negative) Ur Leukocyte Esterase Trace H (Negative) Urine WBC (Auto) 1-5 (0-5) /hpf Urine RBC (Auto) 0-4 (0-4) /hpf U Hyaline Cast (Auto) 1-5 (0-5) /lpf U Epithel Cells (Auto) 0-5 (0-5) /lpf Urine Bacteria (Auto) Negative (Negative) SARS-CoV-2, RNA, NAAT (NEGATIVE) 10/09/21 10/09/21 10/09/21 Range/Units Unknown 23:52 19:27 WBC (4.8-10.8) K/uL RBC (4.2-5.4) M/uL Hgb (12.0-16.0) g/dL Hct (37-47) % MCV (80-100) fL MCH (25-34) pg MCHC (32-36) g/dL RDW Std Deviation (36.4-46.3) fL RDW Coeff of Abbie (11.5-14.5) % Plt Count (130-400) K/uL MPV (7.4-10.4) fL Immature Gran % (Auto) % Neut % (Auto) % Lymph % (Auto) % Smyth % (Auto) % Eos % (Auto) % Baso % (Auto) % Neut # (Auto) (1.4-6.5) K/uL Lymph # (Auto) (1.2-3.4) K/uL Smyth # (Auto) (0.11-0.59) K/uL Eos # (Auto) (0-0.5) K/uL Baso # (Auto) (0-0.2) K/uL Immature Gran # (Auto) (0.00-0.02) K/uL Neutrophils % (Manual) % Lymphocytes % (Manual) % Monocytes % (Manual) % Basophils % (Manual) % Metamyelocytes % (Man) % Neutrophils # (Manual) (1.4-6.5) K/uL Total Absolute Neuts (1.4-6.5) K/uL Lymphocytes # (Manual) (1.2-3.4) K/uL Total Abs Lymphocytes (1.2-3.4) K/uL Monocytes # (Manual) (0.11-0.59) K/uL Basophils # (Manual) (0-0.2) K/uL Metamyelocytes # (Man) (0-0) K/uL PT (9.0-12.0) Seconds INR (0.9-1.1) Sodium (136-145) mmol/L Potassium (3.5-5.1) mmol/L Chloride (98-107) mmol/L Carbon Dioxide (21-32) mmol/L Anion Gap (3-11) BUN (7-18) mg/dl Creatinine (0.6-1.2) mg/dl Est Cr Clr Drug Dosing ml/min Est GFR ( Amer) ml/min Est GFR (Non-Af Amer) ml/min BUN/Creatinine Ratio (10-20) Glucose (70-99) mg/dl POC Glucose 84 99 (70-99) mg/dl Estimat Average Glucose Hemoglobin A1c Lactate (0.4-2.0) mmol/L Calcium (8.5-10.1) mg/dl Phosphorus (2.5-4.9) mg/dl Magnesium (1.8-2.4) mg/dl Total Bilirubin (0.2-1) mg/dl Direct Bilirubin (0-0.2) mg/dl AST (15-37) U/L ALT (12-78) Alkaline Phosphatase (45-117) U/L Ammonia (11-32) umol/L Total Protein (6.4-8.2) gm/dl Albumin (3.4-5.0) gm/dl Globulin (2.5-4.0) gm/dl Albumin/Globulin Ratio (0.9-2) Lipase (73-393) U/L Procalcitonin (0-0.5) ng/ml Urine Color Urine Appearance (Clear) Urine pH (4.5-7.5) Ur Specific [place] (1.000-1.030) Urine Protein (Negative) Urine Glucose (UA) (Negative) Urine Ketones (Negative) Urine Blood (Negative) Urine Nitrite (Negative) Urine Bilirubin (Negative) Urine Urobilinogen (Negative) Ur Leukocyte Esterase (Negative) Urine WBC (Auto) (0-5) /hpf Urine RBC (Auto) (0-4) /hpf U Hyaline Cast (Auto) (0-5) /lpf U Epithel Cells (Auto) (0-5) /lpf Urine Bacteria (Auto) (Negative) SARS-CoV-2, RNA, NAAT NEGATIVE (NEGATIVE) 10/09/21 10/09/21 10/09/21 Range/Units 13:02 12:11 10:05 WBC (4.8-10.8) K/uL RBC (4.2-5.4) M/uL Hgb (12.0-16.0) g/dL Hct (37-47) % MCV (80-100) fL MCH (25-34) pg MCHC (32-36) g/dL RDW Std Deviation (36.4-46.3) fL RDW Coeff of Abbie (11.5-14.5) % Plt Count (130-400) K/uL MPV (7.4-10.4) fL Immature Gran % (Auto) % Neut % (Auto) % Lymph % (Auto) % Smyth % (Auto) % Eos % (Auto) % Baso % (Auto) % Neut # (Auto) (1.4-6.5) K/uL Lymph # (Auto) (1.2-3.4) K/uL Smyth # (Auto) (0.11-0.59) K/uL Eos # (Auto) (0-0.5) K/uL Baso # (Auto) (0-0.2) K/uL Immature Gran # (Auto) (0.00-0.02) K/uL Neutrophils % (Manual) % Lymphocytes % (Manual) % Monocytes % (Manual) % Basophils % (Manual) % Metamyelocytes % (Man) % Neutrophils # (Manual) (1.4-6.5) K/uL Total Absolute Neuts (1.4-6.5) K/uL Lymphocytes # (Manual) (1.2-3.4) K/uL Total Abs Lymphocytes (1.2-3.4) K/uL Monocytes # (Manual) (0.11-0.59) K/uL Basophils # (Manual) (0-0.2) K/uL Metamyelocytes # (Man) (0-0) K/uL PT (9.0-12.0) Seconds INR (0.9-1.1) Sodium (136-145) mmol/L Potassium (3.5-5.1) mmol/L Chloride (98-107) mmol/L Carbon Dioxide (21-32) mmol/L Anion Gap (3-11) BUN (7-18) mg/dl Creatinine (0.6-1.2) mg/dl Est Cr Clr Drug Dosing ml/min Est GFR ( Amer) ml/min Est GFR (Non-Af Amer) ml/min BUN/Creatinine Ratio (10-20) Glucose (70-99) mg/dl POC Glucose (70-99) mg/dl Estimat Average Glucose Hemoglobin A1c Lactate 2.0 (0.4-2.0) mmol/L Calcium (8.5-10.1) mg/dl Phosphorus (2.5-4.9) mg/dl Magnesium (1.8-2.4) mg/dl Total Bilirubin (0.2-1) mg/dl Direct Bilirubin (0-0.2) mg/dl AST (15-37) U/L ALT (12-78) Alkaline Phosphatase (45-117) U/L Ammonia < 10.0 L (11-32) umol/L Total Protein (6.4-8.2) gm/dl Albumin (3.4-5.0) gm/dl Globulin (2.5-4.0) gm/dl Albumin/Globulin Ratio (0.9-2) Lipase (73-393) U/L Procalcitonin 0.44 (0-0.5) ng/ml Urine Color Urine Appearance (Clear) Urine pH (4.5-7.5) Ur Specific [place] (1.000-1.030) Urine Protein (Negative) Urine Glucose (UA) (Negative) Urine Ketones (Negative) Urine Blood (Negative) Urine Nitrite (Negative) Urine Bilirubin (Negative) Urine Urobilinogen (Negative) Ur Leukocyte Esterase (Negative) Urine WBC (Auto) (0-5) /hpf Urine RBC (Auto) (0-4) /hpf U Hyaline Cast (Auto) (0-5) /lpf U Epithel Cells (Auto) (0-5) /lpf Urine Bacteria (Auto) (Negative) SARS-CoV-2, RNA, NAAT (NEGATIVE) 10/09/21 10/09/21 10/09/21 Range/Units 10:05 10:05 10:05 WBC 10.43 (4.8-10.8) K/uL RBC 4.18 L (4.2-5.4) M/uL Hgb 12.9 (12.0-16.0) g/dL Hct 39.1 (37-47) % MCV 93.5 (80-100) fL MCH 30.9 (25-34) pg MCHC 33.0 (32-36) g/dL RDW Std Deviation 50.7 H (36.4-46.3) fL RDW Coeff of Abbie 15.1 H (11.5-14.5) % Plt Count 299 (130-400) K/uL MPV 11.1 H (7.4-10.4) fL Immature Gran % (Auto) % Neut % (Auto) % Lymph % (Auto) % Smyth % (Auto) % Eos % (Auto) % Baso % (Auto) % Neut # (Auto) (1.4-6.5) K/uL Lymph # (Auto) (1.2-3.4) K/uL Smyth # (Auto) (0.11-0.59) K/uL Eos # (Auto) (0-0.5) K/uL Baso # (Auto) (0-0.2) K/uL Immature Gran # (Auto) (0.00-0.02) K/uL Neutrophils % (Manual) 77.5 % Lymphocytes % (Manual) 13.8 % Monocytes % (Manual) 6.9 % Basophils % (Manual) 0.9 % Metamyelocytes % (Man) 0.9 % Neutrophils # (Manual) 8.08 H (1.4-6.5) K/uL Total Absolute Neuts 8.08 H (1.4-6.5) K/uL Lymphocytes # (Manual) 1.44 (1.2-3.4) K/uL Total Abs Lymphocytes 1.44 (1.2-3.4) K/uL Monocytes # (Manual) 0.72 H (0.11-0.59) K/uL Basophils # (Manual) 0.09 (0-0.2) K/uL Metamyelocytes # (Man) 0.09 H (0-0) K/uL PT 12.5 H (9.0-12.0) Seconds INR 1.3 H (0.9-1.1) Sodium 132 L (136-145) mmol/L Potassium 4.0 (3.5-5.1) mmol/L Chloride 97 L (98-107) mmol/L Carbon Dioxide 27 (21-32) mmol/L Anion Gap 8.0 (3-11) BUN 11 (7-18) mg/dl Creatinine 0.76 (0.6-1.2) mg/dl Est Cr Clr Drug Dosing 39.6 ml/min Est GFR ( Amer) 85.3 ml/min Est GFR (Non-Af Amer) 73.6 ml/min BUN/Creatinine Ratio 15.1 (10-20) Glucose 212 H (70-99) mg/dl POC Glucose (70-99) mg/dl Estimat Average Glucose Hemoglobin A1c Lactate (0.4-2.0) mmol/L Calcium 9.5 (8.5-10.1) mg/dl Phosphorus 3.1 (2.5-4.9) mg/dl Magnesium 2.2 (1.8-2.4) mg/dl Total Bilirubin 5.9 H (0.2-1) mg/dl Direct Bilirubin 4.8 H (0-0.2) mg/dl AST 127 H (15-37) U/L ALT 106 H (12-78) Alkaline Phosphatase 767 H D (45-117) U/L Ammonia (11-32) umol/L Total Protein 6.7 (6.4-8.2) gm/dl Albumin 2.6 L (3.4-5.0) gm/dl Globulin 4.1 H (2.5-4.0) gm/dl Albumin/Globulin Ratio 0.6 L (0.9-2) Lipase 151 (73-393) U/L Procalcitonin (0-0.5) ng/ml Urine Color Urine Appearance (Clear) Urine pH (4.5-7.5) Ur Specific [place] (1.000-1.030) Urine Protein (Negative) Urine Glucose (UA) (Negative) Urine Ketones (Negative) Urine Blood (Negative) Urine Nitrite (Negative) Urine Bilirubin (Negative) Urine Urobilinogen (Negative) Ur Leukocyte Esterase (Negative) Urine WBC (Auto) (0-5) /hpf Urine RBC (Auto) (0-4) /hpf U Hyaline Cast (Auto) (0-5) /lpf U Epithel Cells (Auto) (0-5) /lpf Urine Bacteria (Auto) (Negative) SARS-CoV-2, RNA, NAAT (NEGATIVE)
[2021-10-10] MEDS: ESCITALOPRAM OXALATE 20 MG TAB PO SCH (08:35)
[2021-10-10] MEDS: MEMANTINE HCL 5 MG TAB PO SCH ×2 (08:35→20:43)
[2021-10-10] MEDS: FAMOTIDINE 10 MG TABLET PO SCH (08:35)
--- NOTE | 2021-10-10 09:32 | Surgery Progress Note ---
Date of Service October 10, 2021 Assessment & Plan (1) Painless jaundice: Plan: Patient sent from living facility with jaundice. Labs remarkable for elevated LFTs -MRCP yesterday revealed -5 cm cecal mass suggestive of primary colorectal carcinoma, with extensive metastatic disease and adenopathy within the helder hepatis that may be causing mass effect on the extrahepatic biliary tree -Today LFTs who Tb: 7.8, ALT:78, AST: 91, AlkP: 700 -GI is on board and planning on EUS +/- ERCP today for possible biliary stenting given obstruction -Based on MRCP findings cholecystitis is not her concern. -No plans for surgical intervention from our standpoint at this time As above. She is getting an ERCP with stent placement and biopsy today. Imaging concerning for a metastatic right colon mass. No evidence of obstruction or perforation with diffuse metastatic disease. Would not recommend surgical intervention at this time. We will continue to follow along until we have a definitive diagnosis and plan. (2) Elevated LFTs: Admission and Anticipated Discharge Date Admission Date: October 09, 2021 Subjective Patient says she is feeling okay, about the same as yesterday. Denies any abdominal pain, nausea/vomiting. Says her BM's were regular prior to admission, last was yesterday. Non bloody. She tells me she thinks she had some recent weight loss ~10 lbs over the last few months, unintentional. She reports no history of colon or pancreatic ca in the family. Physical Exam Physical Exam: awake, lying in bed Respiratory: normal respiratory effort Gastrointestinal (Abdomen): Percussion/Palpation: abdomen soft; abdomen nontender Results & Data ([facility]) Vital Signs (Past 12 Hours) Vital Signs Temp Pulse Pulse Resp BP BP Pulse Ox 10/10/21 07:20 36.8 C 65 18 146/78 H 93 10/10/21 06:30 60 22 126/76 92 10/10/21 06:00 61 22 129/65 92 10/10/21 05:30 60 21 128/74 91 10/10/21 04:30 62 19 89/55 L 94 10/10/21 03:30 69 19 134/80 94 10/10/21 03:00 64 20 136/91 94 10/10/21 02:30 62 19 118/66 92 10/10/21 02:00 61 21 126/71 92 10/10/21 01:00 63 20 125/74 92 10/10/21 00:30 60 21 121/73 92 10/10/21 00:00 69 25 H 161/81 H 96 10/09/21 23:30 62 21 129/74 94 10/09/21 23:00 66 23 141/73 H 92 PG Care Time/CCT Total # of Minutes Spent Total Time Spent with Patient: Total time spent is greater than 50% in coordination of care (as documented) at patient's floor/unit and/or counseling patient: Coding Level of Care Code 83234 Subseq Hosp Care Lvl 3 Diagnoses Painless jaundice R17 Elevated LFTs R79.89
--- NOTE | 2021-10-10 10:36 | Anesthesiology Consultation ---
Date of Service October 10, 2021 Assessment & Plan (1) Encounter for pre-operative examination: Chart Review Chart Review: Acceptable Risk for Surgery and Patient NOT seen in Pre Admission Testing Consults Requested none History Surgery Operation Date: 10/10/21 09:40 Proposed Procedures p Endoscopic Retrograde Cholangiopancreatogram - Micaela Sanon MD s Endoscopic Ultrasonography Upper - Micaela Sanon MD Height/Weight Height: 4 ft 11 in Weight: 50.9 kg Allergies Allergy/AdvReac Type Severity Reaction Status Date / Time bee venom protein (honey bee) Allergy Intermediate SWELLING Verified 10/09/21 11:36 codeine Allergy Intermediate HEADACHE Verified 10/09/21 11:36 Medications Home Medications Medication Instructions Recorded Confirmed Last Taken blood sugar diagnostic (OneTouch #100 ea 06/22/21 09/19/21 Unknown Ultra Test) blood-glucose meter (Easy Touch #1 ea 06/22/21 09/19/21 Unknown Glucose Monitor) lancets 30 gauge (OneTouch Delica #200 ea 06/22/21 09/19/21 Unknown Lancets) pen needle, diabetic 32 gauge x #100 ea 06/22/21 09/19/21 Unknown 1/4" (Novofine 32) donepezil 10 mg tablet 10 mg PO HS 30 Days #30 tab 07/23/21 10/09/21 Unknown simethicone 80 mg chewable tablet 80 mg PO Q4H PRN 30 Days #30 tab 07/23/21 10/09/21 Unknown loperamide 2 mg capsule 2 mg PO Q6H PRN #30 cap 07/24/21 10/09/21 Unknown insulin aspar prot-insulin aspart See Rx Instructions SUBCUT BID #15 08/08/21 10/09/21 Unknown 100 unit/mL (70-30) subcutaneous ml pen (Novolog Mix 70-30FlexPen U-100) metformin 500 mg tablet 500 mg PO BID #60 tab 08/28/21 10/09/21 Unknown nystatin 100,000 unit/gram topical 1 applic TOPICAL BID PRN #60 g 09/26/21 10/09/21 Unknown powder cholecalciferol (vitamin D3) 25 1,000 unit PO QAM 10/09/21 10/09/21 Unknown mcg (1,000 unit) capsule diclofenac sodium 1 % topical gel 1 g TOPICAL QID PRN 10/09/21 10/09/21 Unknown escitalopram oxalate 20 mg tablet 20 mg PO QAM 10/09/21 10/09/21 Unknown famotidine 10 mg tablet 10 mg PO QAM 10/09/21 10/09/21 Unknown glucosamine sulfate 2KCl 1,000 mg 1,000 mg PO BID PRN 10/09/21 10/09/21 Unknown tablet lisinopril 10 mg tablet 10 mg PO QAM 10/09/21 10/09/21 Unknown memantine 5 mg tablet (Namenda) 5 mg PO BID 10/09/21 10/09/21 Unknown aepcaybp-yli-snjy-FA-Ca carb-vit K 1 tab PO QAM 10/09/21 10/09/21 Unknown 18 mg iron-400 mcg-500 mg tablet (One-A-Day Womens Formula) simvastatin 20 mg tablet 20 mg PO HS 10/09/21 10/09/21 Unknown Active Medications Generic Name Dose Route Start Last Admin Trade Name Lelia PRN Reason Stop Dose Admin Donepezil HCl 10 mg 10/09/21 21:00 10/09/21 21:56 Donepezil Hcl 10 Mg Tab PO 11/08/21 20:59 10 mg HS ALFREDO Administration Escitalopram Oxalate 20 mg 10/10/21 09:00 10/10/21 08:35 Escitalopram Oxalate 20 Mg Tab PO 11/09/21 08:59 20 mg QAM ALFREDO Administration Famotidine 10 mg 10/10/21 09:00 10/10/21 08:35 Famotidine 10 Mg Tablet PO 11/09/21 08:59 10 mg QAM ALFREDO Administration Lactated Ringer's 1,000 mls @ 100 mls/hr 10/09/21 14:30 10/10/21 01:47 Lr IV 11/08/21 14:29 100 mls/hr .Q10H ALFREDO Administration Insulin Aspart 0 units 10/09/21 19:00 10/10/21 08:09 Insulin Aspart Per Unit SC 11/08/21 18:59 Not Given Q4 ALFREDO Memantine 5 mg 10/09/21 21:00 10/10/21 08:35 Memantine Hcl 5 Mg Tab PO 11/08/21 20:59 5 mg BID ALFREDO Administration Past Medical History Medical History Dehydration Diverticulosis DSAP (disseminated superficial actinic porokeratosis) Endometrial adenocarcinoma Fall from standing Fatigue Hearing difficulty History of actinic keratosis History of cellulitis 2nd toe History of lymphocytosis History of osteopenia History of postmenopausal bleeding History of solar lentigo Hoarding behavior Hyperglycemia Hypokalemia Hypomagnesemia Lung nodules Murmur Near syncope Solitary thyroid nodule Tubular adenoma of colon Weakness Weakness Past Family History Family History Sister Anxiety Depression Mother Gallbladder disease Diabetes Aunt Diabetes Father Cardiac disorder Myocardial infarction Skin cancer Family/Other Stroke Grandmother (Maternal) Cardiac disorder Diabetes and maternal great grandmother Daughter Diabetes Denies family history of Ovarian cancer Prostate cancer Crohn's disease Breast cancer Colorectal cancer Ulcerative colitis Past Surgical History Surgical History H/O colonoscopy History of hysterectomy with bilateral oophorectomy S/P appendectomy S/P dilation and curettage Status post repair of nerve carpal tunnel Social History Smoking Status: Never smoker Hx Alcohol Use: No Hx Substance Use: No Physical Exam Vital Signs Last Vital Signs Temp 98.2 F 10/10/21 07:20 Pulse 65 10/10/21 07:20 Resp 18 10/10/21 07:20 BP 146/78 H 10/10/21 07:20 Pulse Ox 93 10/10/21 07:20 Testing Laboratory Results 10/10/21 07:19 10/10/21 07:19 PT 12.5 Seconds (9.0-12.0) H 10/09/21 10:05 INR 1.3 (0.9-1.1) H 10/09/21 10:05 Hemoglobin A1c 6.8 % (4.5-5.6) H 10/10/21 07:19 Urine Color Dark Yellow 10/09/21 Unknown Urine Appearance Clear (Clear) 10/09/21 Unknown Urine pH 5.0 (4.5-7.5) 10/09/21 Unknown Ur Specific [place] 1.034 (1.000-1.030) H 10/09/21 Unknown Urine Protein Negative (Negative) 10/09/21 Unknown Urine Glucose (UA) Negative (Negative) 10/09/21 Unknown Urine Ketones Negative (Negative) 10/09/21 Unknown Urine Nitrite Negative (Negative) 10/09/21 Unknown Ur Leukocyte Esterase Trace (Negative) H 10/09/21 Unknown Urine WBC (Auto) 1-5 /hpf (0-5) 10/09/21 Unknown Urine RBC (Auto) 0-4 /hpf (0-4) 10/09/21 Unknown U Hyaline Cast (Auto) 1-5 /lpf (0-5) 10/09/21 Unknown U Epithel Cells (Auto) 0-5 /lpf (0-5) 10/09/21 Unknown Urine Bacteria (Auto) Negative (Negative) 10/09/21 Unknown 10/10/21 10/10/21 10/09/21 08:02 03:33 23:52 POC Glucose 119 H 94 84 Electrocardiogram Date: 10/09/21 Normal sinus rhythm with sinus arrhythmia Anterior infarct (cited on or before 13-JUN-2021) Abnormal ECG When compared with
[2021-10-10] MEDS ORDERED: fentaNYL citrate 100 MCG/2 ML VIAL ONE (10:52)
[2021-10-10] MEDS ORDERED: fentaNYL citrate 100 MCG/2 ML VIAL IV PRN (11:00)
[2021-10-10] MEDS ORDERED: ATROPINE SULFATE 0.1 MG/ML 10ML SYR IV PRN (11:00)
[2021-10-10] MEDS ORDERED: ePHEDrine sulfate 50 MG/ML AMP IV PRN (11:00)
[2021-10-10] MEDS ORDERED: SUCCINYLCHOLINE 100MG/5ML SYR IV ONE (11:31)
[2021-10-10] MEDS ORDERED: PHENYLEPHRINE 100MCG/ML 5ML SYR ONE (11:31)
[2021-10-10] MEDS ORDERED: ONDANSETRON INJ 2 MG/ML 2 ML VIAL ONE (11:31)
[2021-10-10] MEDS ORDERED: PROPOFOL IV EMULSION 10 MG/ML 20 ML VIAL IV ONE (11:31)
[2021-10-10] MEDS ORDERED: LIDOCAINE 2% 2 ML VIAL/AMP(20MG/ML) INFIL ONE (11:31)
[2021-10-10] MEDS ORDERED: ePHEDrine sulfate 50 MG/ML SYR ONE (11:49)
--- NOTE | 2021-10-10 12:21 | Operative Report ---
Post Operative Report Pre & Post Diagnosis Operation Date: 10/10/21 09:40 Pre-Op Diagnosis: Jaundice I identified the patient and participated in the time-out.: Yes Procedure Operation Date: 10/10/21 09:40 <No data on this case meets the specified criteria> Surgeon Micaela Sanon MD Patient Access Representative None Estimated Blood Loss 0 Findings See Below (Metastatic cancer to LN, Biliasry stricture, stent placed) Specimens LN FNA, Gastric polyp Description of Procedure EUS/ERCP I attest to the content of the Intraoperative Record and any orders documented therein. Any exceptions are noted below.
--- NOTE | 2021-10-10 12:36 | GI REPORT ---
Patient Name: Stefani Parrish Procedure Date: 10/10/2021 11:20 AM Date of : 1940 Admit Type: Inpatient Age: 81 Gender: Female Attending MD: Micaela Sanon MD Procedure: Upper GI endoscopy Providers: Micaela Sanon MD Referring MD: Kallie Canela Indications: Abnormal CT of the GI tract Medicines: General Anesthesia Complications: No immediate complications. Estimated Blood Loss: Estimated blood loss: none. Procedure: Pre-Anesthesia Assessment: - Prior to the procedure, a History and Physical was performed, and patient medications, allergies and sensitivities were reviewed. The patient's tolerance of previous anesthesia was reviewed. - The risks and benefits of the procedure and the sedation options and risks were discussed with the patient. All questions were answered and informed consent was obtained. - Patient identification and proposed procedure were verified prior to the procedure by the physician and the nurse. The procedure was verified in the procedure room. - Pre-procedure physical examination revealed no contraindications to sedation. After obtaining informed consent, the endoscope was passed under direct vision. Throughout the procedure, the patient's blood pressure, pulse, and oxygen saturations were monitored continuously. The Endoscope was introduced through the mouth, and advanced to the second part of duodenum. The upper GI endoscopy was accomplished without difficulty. The patient tolerated the procedure well. Findings: The examined esophagus was normal. A single 12 mm sessile polyp with no stigmata of recent bleeding was found in the gastric antrum. The polyp was removed with a hot snare. Resection and retrieval were complete. Verification of patient identification for the specimen was done by the physician and nurse using the patient's name and date. The duodenal bulb and second portion of the duodenum were normal. Impression: - Normal esophagus. - A single gastric polyp. Resected and retrieved. - Normal duodenal bulb and second portion of the duodenum. Recommendation: - Await pathology results. - Perform an upper endoscopic ultrasound (UEUS). Micaela Sanon MD 10/10/2021 12:35:35 PM This report has been signed electronically. Note Initiated On: 10/10/2021 11:20 AM Number of Addenda: 0 I attest to the content of the Intraoperative Record and orders documented therein, exceptions below {[id number]}
--- NOTE | 2021-10-10 12:42 | GI REPORT ---
Patient Name: Stefani Parrish Procedure Date: 10/10/2021 11:21 AM Date of : 1940 Admit Type: Inpatient Age: 81 Gender: Female Attending MD: Micaela Sanon MD Procedure: Upper EUS Providers: Micaela Sanon MD Referring MD: Kallie Canela Indications: Lymphadenopathy on CT scan, Elevated liver enzymes Medicines: General Anesthesia Complications: No immediate complications. Estimated Blood Loss: Estimated blood loss: none. Procedure: Pre-Anesthesia Assessment: - Prior to the procedure, a History and Physical was performed, and patient medications, allergies and sensitivities were reviewed. The patient's tolerance of previous anesthesia was reviewed. - The risks and benefits of the procedure and the sedation options and risks were discussed with the patient. All questions were answered and informed consent was obtained. - Patient identification and proposed procedure were verified prior to the procedure by the physician and the nurse. The procedure was verified in the procedure room. - Pre-procedure physical examination revealed no contraindications to sedation. After obtaining informed consent, the endoscope was passed under direct vision. Throughout the procedure, the patient's blood pressure, pulse, and oxygen saturations were monitored continuously. The scope was introduced through the mouth, and advanced to the second part of duodenum. The upper EUS was accomplished without difficulty. The patient tolerated the procedure well. Findings: ENDOSONOGRAPHIC FINDING: : There was no sign of significant endosonographic abnormality in the ampulla. No masses were identified. There was a suggestion of a stricture in the common hepatic duct due to compression by the large periportal LN. The distal CBD was normal in diameter. There was mild IHDD. Many stones were visualized endosonographically in the gallbladder. They were hyperechoic and characterized by shadowing. Multiple lesions were identified endosonographically in the entire examined liver. The endosonographic appearance was suggestive of metastases. Pancreatic parenchymal abnormalities were noted in the entire pancreas. These consisted of diffuse echogenicity. PD normal in diameter. Many malignant-appearing lymph nodes were visualized in the celiac region (level 20) and helder hepatis region. The largest measured 30 mm in maximal cross-sectional diameter. The nodes were oval, hypoechoic and had well defined margins. Fine needle biopsy was performed. Color Doppler imaging was utilized prior to needle puncture to confirm a lack of significant vascular structures within the needle path. Five passes were made with the 25 gauge Snapguide EchoTip biopsy needle using a transgastric approach. Touch preps were performed. The cellularity of the specimen was adequate. Final cytology results are pending. There was no sign of significant endosonographic abnormality in the visualized portion of the left adrenal gland. There was no sign of significant endosonographic abnormality involving the celiac trunk. Impression: - Many malignant-appearing lymph nodes were visualized in the celiac region (level 20) and helder hepatis region. Fine needle biopsy performed. - Multiple metastatic lesions were found in the entire examined liver. - There was no sign of significant pathology in the ampulla. - There was a suggestion of a stricture in the common hepatic duct due to compression by the large periportal LN. - Many stones were visualized endosonographically in the gallbladder. - Pancreatic parenchymal abnormalities consisting of diffuse echogenicity were noted in the entire pancreas. - Endosonographic images of the left adrenal gland were unremarkable. - The celiac trunk was endosonographically normal. Recommendation: - Await cytology results. - Perform an ERCP today. Micaela Sanon MD 10/10/2021 12:42:39 PM This report has been signed electronically. Note Initiated On: 10/10/2021 11:21 AM Number of Addenda: 0 I attest to the content of the Intraoperative Record and orders documented therein, exceptions below {[id number]}
--- NOTE | 2021-10-10 12:48 | GI REPORT ---
Patient Name: Stefani Parrish Procedure Date: 10/10/2021 11:21 AM Date of : 1940 Admit Type: Inpatient Age: 81 Gender: Female Attending MD: Micaela Sanon MD Procedure: ERCP Providers: Micaela Sanon MD Referring MD: Kallie Canela Indications: Jaundice Medicines: General Anesthesia, Ancef 2000 mg IV Complications: No immediate complications. Estimated Blood Loss: Estimated blood loss: none. Procedure: Pre-Anesthesia Assessment: - Prior to the procedure, a History and Physical was performed, and patient medications, allergies and sensitivities were reviewed. The patient's tolerance of previous anesthesia was reviewed. - The risks and benefits of the procedure and the sedation options and risks were discussed with the patient. All questions were answered and informed consent was obtained. - Patient identification and proposed procedure were verified prior to the procedure by the physician and the nurse. The procedure was verified in the procedure room. - Pre-procedure physical examination revealed no contraindications to sedation. After obtaining informed consent, the scope was passed under direct vision. Throughout the procedure, the patient's blood pressure, pulse, and oxygen saturations were monitored continuously. The Duodenoscope was introduced through the mouth, and advanced to the duodenum and used to inject contrast into the bile duct. The ERCP was accomplished without difficulty. The patient tolerated the procedure well. Findings: The systems development consultant film was normal. The esophagus was successfully intubated under direct vision. The scope was advanced to a normal major papilla in the descending duodenum without detailed examination of the pharynx, larynx and associated structures, and upper GI tract. The upper GI tract was grossly normal. A 0.025 inch x 270 cm angled Visiglide wire was passed into the biliary tree. The Fusion OMNI sphincterotome was passed over the guidewire and the bile duct was then deeply cannulated. Contrast was injected. I personally interpreted the bile duct images. Ductal flow of contrast was adequate. Image quality was adequate. Contrast extended to the main bile duct. Opacification of the entire biliary tree was successful. The maximum diameter of the ducts was 6 mm. The common hepatic duct contained a single localized stenosis 20 mm in length. Biliary sphincterotomy was made with a monofilament traction (standard) sphincterotome using ERBE electrocautery. There was no post-sphincterotomy bleeding. The biliary tree was swept with an 11.5 mm balloon starting at the bifurcation. Nothing was found. One 10 mm by 10 cm uncovered metal biliary stent was placed into the common bile duct. Bile flowed through the stent. The stent was in good position. Impression: - A single mild biliary stricture was found in the common hepatic duct. - One uncovered metal biliary stent was placed into the common bile duct. Recommendation: - Return [facility] to [facility] care. - The stricture is mild and does not explain her jaundice, I highly doubt her Liver enzymes would improve as I think the etiology is likely the extensive involvement of the liver by the metastatic lesions. Micaela Sanon MD 10/10/2021 12:47:55 PM This report has been signed electronically. Note Initiated On: 10/10/2021 11:21 AM Number of Addenda: 0 I attest to the content of the Intraoperative Record and orders documented therein, exceptions below {[id number]}
[2021-10-10] MEDS ORDERED: ceFAZolin 2000MG 2,000 MG/15 ML SYR IV STA (12:49)
--- NOTE | 2021-10-10 12:58 | Fluoroscopy Report ---
FL ERCP biliary ductal CLINICAL HISTORY: EUS/ERCP TECHNIQUE: 7 views were obtained with the C-arm in the OR with the above procedure. Total fluoroscopy time was 50.6 seconds. Total skin dose was 18.74 mGy. Comparison: None available at the time of this dictation. FINDINGS/IMPRESSION: Intraoperative images of ERCP placement were obtained. A stent is seen to be in place in the final image. Please correlate with intraoperative fluoroscopy and operative report. ACT 112: Negative or not required by law. Electronically signed by: Dexter Avilez M.D. 10/10/2021 12:57 PM
--- NOTE | 2021-10-10 13:09 | Anesthesiology Progress Note ---
Date of Service October 10, 2021 Anesthesia Post Procedure Vital Signs Vital Signs: Temp Pulse Pulse Pulse Resp BP BP 10/10/21 12:55 64 20 123/66 10/10/21 12:45 69 20 117/79 10/10/21 12:36 96.8 F L 65 16 190/60 H 10/10/21 10:32 97.2 F L 64 16 143/74 H 10/10/21 07:20 98.2 F 65 18 146/78 H 10/10/21 06:30 60 22 126/76 10/10/21 06:00 61 22 129/65 10/10/21 05:30 60 21 128/74 10/10/21 04:30 62 19 89/55 L 10/10/21 03:30 69 19 134/80 10/10/21 03:00 64 20 136/91 10/10/21 02:30 62 19 118/66 10/10/21 02:00 61 21 126/71 10/10/21 01:00 63 20 125/74 10/10/21 00:30 60 21 121/73 10/10/21 00:00 69 25 H 161/81 H 10/09/21 23:30 62 21 129/74 10/09/21 23:00 66 23 141/73 H 10/09/21 20:40 67 20 10/09/21 20:30 66 21 10/09/21 20:20 65 21 10/09/21 20:10 67 21 10/09/21 20:00 68 25 H 132/79 10/09/21 19:50 68 25 H 10/09/21 19:40 65 20 10/09/21 19:30 71 24 10/09/21 19:20 66 22 10/09/21 19:10 70 22 10/09/21 19:00 68 22 123/66 10/09/21 18:50 66 20 10/09/21 18:40 71 22 10/09/21 18:30 72 25 H 108/78 10/09/21 18:20 71 27 H 106/67 10/09/21 18:10 67 19 10/09/21 18:00 72 17 10/09/21 17:50 70 25 H 10/09/21 17:40 72 21 10/09/21 17:30 76 22 12/21/21 17:21 76 24 131/75 12/21/21 17:20 77 26 H 10/09/21 17:17 80 23 10/09/21 17:00 78 23 10/09/21 16:50 72 20 10/09/21 16:40 69 21 10/09/21 16:30 72 22 10/09/21 16:20 79 21 103/60 10/09/21 16:10 71 21 10/09/21 16:00 76 21 103/70 10/09/21 15:50 68 21 10/09/21 15:40 69 21 10/09/21 15:30 71 19 10/09/21 15:20 71 19 10/09/21 15:10 75 22 110/60 10/09/21 15:00 71 22 10/09/21 14:57 10/09/21 14:10 69 19 10/09/21 14:00 77 14 10/09/21 13:50 71 19 10/09/21 13:40 67 22 10/09/21 13:30 65 17 146/95 H 10/09/21 13:20 66 24 10/09/21 13:10 69 23 Pulse Ox 10/10/21 12:55 1 L 10/10/21 12:45 97 10/10/21 12:36 97 10/10/21 10:32 96 10/10/21 07:20 93 10/10/21 06:30 92 10/10/21 06:00 92 10/10/21 05:30 91 10/10/21 04:30 94 10/10/21 03:30 94 10/10/21 03:00 94 10/10/21 02:30 92 10/10/21 02:00 92 10/10/21 01:00 92 10/10/21 00:30 92 10/10/21 00:00 96 10/09/21 23:30 94 10/09/21 23:00 92 10/09/21 20:40 10/09/21 20:30 10/09/21 20:20 10/09/21 20:10 10/09/21 20:00 10/09/21 19:50 10/09/21 19:40 10/09/21 19:30 10/09/21 19:20 93 10/09/21 19:10 10/09/21 19:00 95 10/09/21 18:50 10/09/21 18:40 95 10/09/21 18:30 95 10/09/21 18:20 94 10/09/21 18:10 10/09/21 18:00 10/09/21 17:50 96 10/09/21 17:40 10/09/21 17:30 10/09/21 17:21 94 10/09/21 17:20 10/09/21 17:17 10/09/21 17:00 10/09/21 16:50 10/09/21 16:40 94 10/09/21 16:30 10/09/21 16:20 98 10/09/21 16:10 10/09/21 16:00 10/09/21 15:50 10/09/21 15:40 10/09/21 15:30 95 10/09/21 15:20 93 10/09/21 15:10 94 10/09/21 15:00 95 10/09/21 14:57 95 10/09/21 14:10 10/09/21 14:00 10/09/21 13:50 10/09/21 13:40 10/09/21 13:30 10/09/21 13:20 10/09/21 13:10 Transfer of Care Handoff Completed per policy Notes Mental Status: alert / awake / arousable and participated in evaluation Patient Amnestic to Procedure: Yes Nausea / Vomiting: adequately controlled Pain: adequately controlled Airway Patency, RR, SpO2: stable & adequate BP & HR: stable & adequate Hydration State: stable & adequate Anesthetic Complications: no major complications apparent and Pt Satisfied with anesthetic care
--- NOTE | 2021-10-10 13:52 | Pharmacy Report ---
Pharmacy Glycemic Short Note 2 - Date of Service October 10, 2021 - Glycemic Short BSG Results (Last 24 hours): 10/09/21 10/09/21 10/10/21 19:27 23:52 03:33 Glucose POC Glucose 99 84 94 10/10/21 10/10/21 07:19 08:02 Glucose 113 H POC Glucose 119 H OUTPATIENT ANTIDIABETIC REGIMEN: * Novolog 70/30 insulin 20 units SQ QAM and 7 units SQ QPM * Metformin 500 mg PO BID ASSESSMENT: * 81 y/o F admitted for jaundice, possibly with metastatic cancer. Pt has history of Type 2 diabetes managed at home on Novolog mix 70/30 insulin and oral Metformin. Of note, current insulin regimen is causing hypoglycemia at her personal shelter likely due to patient eating less. * On admission yesterday her BSG was 212 mg/dl but this trended down to 99 at HS. Novolog was ordered but she did not receive any insulin yesterday. * Fasting BSG today was 119 mg/dl. She is NPO for ERCP with stent placement procedure. * Will continue patient on weight based Novolog moderate stress regimen and q4h BSG checks. PLAN FOR INPATIENT GLYCEMIC CONTROL: * Hold outpatient oral diabetes medications * Basal insulin * None ordered * Bolus insulin * NovoLog per scale ACHS or Q6hrs while NPO * Goal Range: Low 110 mg/dL - High 140 mg/dL * Correction Factor: 35 mg/dL/unit * Nutritional / Prandial insulin per carb ratio of 1 unit per 12 grams CHO consumed PLAN FOR DISCHARGE: * TBD
[2021-10-10] MEDS ORDERED: Nursing to Pharmacy Communication SCH ×2 (15:00→19:15)
--- NOTE | 2021-10-10 15:07 | Hospitalist Progress Note ---
Date of Service October 10, 2021 Assessment & Plan (1) Painless jaundice: Plan: MRCP & CT a/p indicate cecal mass with widespread metastatic disease. - Consulted gastroenterology -> S/p ERCP on 10/10 with 1 biliary stent placed. ERCP report indicates fairly mild stenosis, so likely not the cause of her elevated LFTs. - Consulted surgery -> No plan for sx at this time. - Symptomatic management. (2) Hypertension: Plan: BP today is 125/75. - Holding lisinopril in setting of acute illness (3) Diabetes type 2, uncontrolled: Plan: A1c was 6.8% this admission. - Consult pharmacy for glycemic control - notably current insulin regimen causing hypoglycemia at her personal correction likely due to eating less. (4) Dementia: Plan: Appears to be at baseline. Clearly catches that she has cancer, but the specifics don't seem to stick. Asks multiple times when we found out, how long it's been there, what we could do to treat it, and where it is. - Continue donepezil and memantine (5) Depression: Plan: - Continue Lexapro (6) Hyperlipidemia: Plan: - Holding simvastatin for elevated LFTs (7) GERD (gastroesophageal reflux disease): Plan: - Continue famotidine 20mg PO daily (8) DVT prophylaxis: Plan: Lovenox 40 mg SQ daily Admission and Anticipated Discharge Date Admission Date: October 09, 2021 Subjective Has some stomach pain after the procedure. Otherwise, reports no fevers/chills, chest pain, shortness of breath, nausea, or vomiting. Physical Exam Constitutional: WD/WN, vitals as above Eyes: EOM intact bilaterally; no conjunctival abnormality and sclerae not anicteric (Icteric sclerae) ENMT: external ear and nose normal, oropharynx normal Neck: trachea midline, no thyromegaly normal visual inspection Respiratory: normal respiratory effort, lungs clear to auscultation no respiratory distress Cardiovascular: RRR, no murmur, no edema Gastrointestinal (Abdomen): Inspection/Auscultation: + abdomen distended Percussion/Palpation: + abdomen tender (Epigastric area) and abdomen soft; no guarding and abdomen not rigid Musculoskeletal: no cyanosis or clubbing, extremities motor strength 5/5 Skin: no rashes, warm and dry Neurologic: moves all extremities and awake Psychiatric: Orientation: alert, oriented to person and cooperative Results & Data Results & Data ([facility]) Vital Signs (Past 12 Hours) Vital Signs Temp Pulse Pulse Pulse Resp BP BP 10/10/21 14:40 36.6 C 68 16 125/75 10/10/21 14:27 36.4 C L 64 16 131/62 10/10/21 14:10 36.4 C L 70 16 135/70 10/10/21 13:27 63 20 124/63 10/10/21 13:15 65 20 112/61 10/10/21 13:05 68 20 122/60 10/10/21 12:55 64 20 123/66 10/10/21 12:45 69 20 117/79 10/10/21 12:36 36.0 C L 65 16 190/60 H 10/10/21 10:32 36.2 C L 64 16 143/74 H 10/10/21 07:20 36.8 C 65 18 146/78 H 10/10/21 06:30 60 22 126/76 10/10/21 06:00 61 22 129/65 10/10/21 05:30 60 21 128/74 10/10/21 04:30 62 19 89/55 L 10/10/21 03:30 69 19 134/80 Pulse Ox 10/10/21 14:40 96 10/10/21 14:27 92 10/10/21 14:10 96 10/10/21 13:27 10/10/21 13:15 10/10/21 13:05 10/10/21 12:55 10/10/21 12:45 97 10/10/21 12:36 97 10/10/21 10:32 96 10/10/21 07:20 93 10/10/21 06:30 92 10/10/21 06:00 92 10/10/21 05:30 91 10/10/21 04:30 94 10/10/21 03:30 94 PG Care Time/CCT Total # of Minutes Spent Total Time Spent with Patient: Total time spent is greater than 50% in coordination of care (as documented) at patient's floor/unit and/or counseling patient: Coding Level of Care Code 60293 Subseq Hosp Care Lvl 3 Diagnoses Painless jaundice R17 Diabetes type 2, uncontrolled E11.65 Dementia F03.90 Depression F32.9 Hypertension I10 Hyperlipidemia E78.5 GERD (gastroesophageal reflux disease) K21.9 DVT prophylaxis Z29.9
[2021-10-10] MEDS: DONEPEZIL HCL 10 MG TAB PO SCH (20:43)
[2021-10-11] MEDS: LACTATED RINGER'S 1,000 ML IV SCH (05:37)
--- NOTE | 2021-10-11 06:22 | Electrocardiogram Report ---
Test Reason : Blood Pressure : / mmHG Vent. Rate : 075 BPM Atrial Rate : 075 BPM P-R Int : 166 ms QRS Dur : 072 ms QT Int : 392 ms P-R-T Axes : 008 -10 024 degrees QTc Int : 437 ms Normal sinus rhythm with sinus arrhythmia Anterior infarct (cited on or before 13-JUN-2021) Abnormal ECG When compared with ECG of 13-JUN-2021 15:28, No significant change was found Confirmed by Abran Santoyo ([id number]) on 10/11/2021 6:22:12 AM Referred By: Rola Renee Confirmed By:Abran Santoyo
[2021-10-11 08:44] LABS: Hematocrit (blood only) 35.5 % (37-47); Hemoglobin 11.6 g/dL (12.0-16.0); Mean Corpuscular Hemoglobin 30.1 pg (25-34); Mean Corpuscular Hgb Conc 32.7 g/dL (32-36); Mean Corpuscular Volume 92.2 fL (80-100); Mean Platelet Volume 10.6 fL (7.4-10.4); Platelet Count 258 K/uL (130-400); RDW Coefficient of Variation 15.2 % (11.5-14.5); RDW Standard Deviation 51.6 fL (36.4-46.3); Red Blood Count 3.85 M/uL (4.2-5.4); White Blood Count 10.26 K/uL (4.8-10.8)
[2021-10-11] MEDS: INSULIN ASPART PER UNIT SC SCH ×2 (08:48→12:40)
[2021-10-11] MEDS: FAMOTIDINE 10 MG TABLET PO SCH (08:49)
[2021-10-11] MEDS: MEMANTINE HCL 5 MG TAB PO SCH (08:49)
[2021-10-11] MEDS: ESCITALOPRAM OXALATE 20 MG TAB PO SCH (08:49)
[2021-10-11] MEDS ORDERED: ENOXAPARIN INJ 40 MG/0.4 ML SYR SQ SCH (09:00)
--- NOTE | 2021-10-11 09:18 | Surgery Progress Note ---
Date of Service October 11, 2021 Assessment & Plan (1) Painless jaundice: Plan: Likely metastatic colon cancer according to imaging. Pathology from ERCP is still pending. Nonetheless she has no pain and no obstruction. With the diffuse metastatic disease she would not be a surgical candidate unless she would have a perforation, severe bleeding or obstruction at the ileocecal valve. We will sign off for now but will watch the case from the background. Please call if any questions or if we can assist in any way. (2) Hyperbilirubinemia: (3) Cecum mass: Admission and Anticipated Discharge Date Admission Date: October 09, 2021 Subjective Patient seen. Up in chair and currently ate her entire tray. She denies any nausea. She denies abdominal pain. Physical Exam Constitutional: WD/WN, vitals as above no acute distress and not ill appearing Eyes: PERRL, conjunctivae normal, anicteric sclerae EOM intact bilaterally ENMT: external ear and nose normal, oropharynx normal Ears: no hearing impairment Neck: trachea midline, no thyromegaly Respiratory: normal respiratory effort; no respiratory distress and does not use accessory muscles Cardiovascular: Rate/Rhythm: regular rate and regular rhythm Gastrointestinal (Abdomen): Soft. Nontender. No palpable abnormalities. Skin: no rashes, warm and dry Psychiatric: Orientation: alert, oriented x 3 and cooperative Results & Data ([facility]) Vital Signs (Past 12 Hours) Vital Signs Temp Pulse Resp BP Pulse Ox 10/11/21 07:32 36.6 C 68 16 149/69 H 93 10/10/21 22:44 36.6 C 65 16 122/67 91 PG Care Time/CCT Total # of Minutes Spent Total Time Spent with Patient: Total time spent is greater than 50% in coordination of care (as documented) at patient's floor/unit and/or counseling patient: Coding Level of Care Code 12811 Subseq Hosp Care Lvl 3 Diagnoses Painless jaundice R17 Hyperbilirubinemia E80.6 Cecum mass K63.89
[2021-10-11 09:30] LABS: BUN Creatinine Ratio 17.5 (10-20); Calcium 8.7 mg/dl (8.5-10.1); Est GFR (African American) 104.5 ml/min; Est GFR (Non-African American) 90.2 ml/min; Magnesium 2.1 mg/dl (1.8-2.4); Potassium 4.2 mmol/L (3.5-5.1)
[2021-10-11 09:31] LABS: Albumin Globulin Ratio 0.6 (0.9-2); Globulin 3.5 gm/dl (2.5-4.0); Total Protein 5.5 gm/dl (6.4-8.2)
--- NOTE | 2021-10-11 13:17 | Pharmacy Report ---
Pharmacy Glycemic Short Note 2 - Date of Service October 11, 2021 - Glycemic Short BSG Results (Last 24 hours): 10/10/21 10/10/21 10/10/21 13:57 17:01 20:50 Glucose POC Glucose 157 H 161 H 151 H 10/11/21 10/11/21 10/11/21 08:13 08:14 12:13 Glucose 135 H POC Glucose 132 H 200 H OUTPATIENT ANTIDIABETIC REGIMEN: * Novolog 70/30 insulin 20 units SQ QAM and 7 units SQ QPM * Metformin 500 mg PO BID ASSESSMENT: 10/11/21 * Patient's BSGs yesterday were [phone] mg/dL and patient received 4 units of bolus insulin. * Fasting BSG today was 132 mg/dL so will continue to hold basal insulin. * Lunch BSG is 200 mg/dL so will tighten CR and continue to monitor. Background * 81 y/o F admitted for jaundice, possibly with metastatic cancer. Pt has history of Type 2 diabetes managed at home on Novolog mix 70/30 insulin and oral Metformin. Of note, current insulin regimen is causing hypoglycemia at her personal m[facility]p likely due to patient eating less. * On admission yesterday her BSG was 212 mg/dl but this trended down to 99 at HS. Novolog was ordered but she did not receive any insulin yesterday. * Fasting BSG today was 119 mg/dl. She is NPO for ERCP with stent placement procedure. * Will continue patient on weight based Novolog moderate stress regimen and q4h BSG checks. PLAN FOR INPATIENT GLYCEMIC CONTROL: * Hold outpatient oral diabetes medications * Basal insulin * None ordered * Bolus insulin * NovoLog per scale ACHS or Q6hrs while NPO * Goal Range: Low 110 mg/dL - High 140 mg/dL * Correction Factor: 30 mg/dL/unit * Nutritional / Prandial insulin per carb ratio of 1 unit per 7 grams CHO consumed PLAN FOR DISCHARGE: * HbA1C is below goal for patient (currently is 6.8% and goal would be <7%) * Recommend continuing outpatient regimen unless patient is having significant lows.
--- NOTE | 2021-10-11 18:32 | Discharge Summary ---
Date of Service October 11, 2021 Admission HPI Per Admitting Provider Stefani Parrish is an 81 year old female who presents to the ER with painless jaundice. The patient has dementia and is unsure why she was sent in today. On discussion with Omer Cunningham (she is in a personal long-term); they check on her daily and noticed today she appeared jaundiced therefore on discussion with her PCP recommended evaluation in the ER. They have also noticed decreased appetite over the last few days and variable glucose values with her diabetes. In the ER her LFTs were noted to be significantly elevated in an obstructive pattern with total bilirubin 5.9, AST 127, ALT 106 and ALP 767. She underwent CT with concern for liver metastatic disease and acute cholecystitis. She denies any fever or chills or abdominal pain. No nausea, vomiting or change in bowel. She was referred to medicine for admission and ongoing management of jaundice. Principal Diagnosis Likely colorectal cancer with metastatic spread Discharge Exam Constitutional WD/WN, vitals as above Eyes EOM intact bilaterally; no conjunctival abnormality and sclerae not anicteric ENMT external ear and nose normal, oropharynx normal Neck trachea midline, no thyromegaly normal visual inspection Respiratory normal respiratory effort, lungs clear to auscultation no respiratory distress Cardiovascular RRR, no murmur, no edema Gastrointestinal (Abdomen) Inspection/Auscultation: abdomen normal to inspection; abdomen not distended Musculoskeletal no cyanosis or clubbing, extremities motor strength 5/5 Skin no rashes, warm and dry + jaundice Neurologic moves all extremities and awake Psychiatric Orientation: alert, oriented to person and cooperative Discharge Data Allergies Allergy/AdvReac Type Severity Reaction Status Date / Time bee venom protein (honey bee) Allergy Intermediate SWELLING Verified 10/09/21 11:36 codeine Allergy Intermediate HEADACHE Verified 10/09/21 11:36 Consultations 10/09/21 12:24 ED Decision to Admit Stat 10/09/21 13:31 Consult General Surgery Stat 10/09/21 13:35 Consult General Surgery Stat 10/09/21 17:59 Consult Gastroenterology Routine 10/09/21 18:00 Consult Palliative Care Routine Procedures Performed Operation Date: 10/10/21 09:40 Actual Procedures s Endoscopic Ultrasonography Upper - Micaela Sanon MD p Endoscopic Retrograde Cholangiopancreato - Micaela Sanon MD s EGD Polypectomy - Micaela Sanon MD Ordered Studies 10/09/21 10:46 CT abd pelvis IV con only Stat 10/09/21 13:30 MR MRCP Stat 10/10/21 FL ERCP biliary ductal Routine 10/10/21 11:15 US upper EUS PACS images Routine Hospital Course (1) Painless jaundice: MRCP & CT a/p indicate cecal mass with widespread metastatic disease. - Consulted gastroenterology -> S/p ERCP on 10/10 with 1 biliary stent placed. ERCP report indicates fairly mild stenosis, so likely not the cause of her elevated LFTs. - Consulted surgery -> No plan for sx at this time. - Symptomatic management. - Discussed with daughter. Explained choice of attempting to get biopsy and considering treatment vs. moving toward comfort measures and hospice. She feels hospice is more appropriate at this time, though I did explain what the steps could be if she decided to pursue treatment. Patient will return to [facility] and consider hospice referrals. (2) Hypertension: BP today is 125/75. - Holding lisinopril in setting of acute illness (3) Diabetes type 2, uncontrolled: A1c was 6.8% this admission. - Consult pharmacy for glycemic control - notably current insulin regimen causing hypoglycemia at her personal long-term likely due to eating less. (4) Dementia: Appears to be at baseline. Clearly catches that she has cancer, but the specifics don't seem to stick. Asks multiple times when we found out, how long it's been there, what we could do to treat it, and where it is. - On repeat conversation on 10/11, she seems to possibly remember she has cancer, but does not remember where or any specifics about our prior discussion. - Continue donepezil and memantine (5) Depression: - Continue Lexapro (6) Hyperlipidemia: - Holding simvastatin for elevated LFTs (7) GERD (gastroesophageal reflux disease): - Continue famotidine 20mg PO daily (8) DVT prophylaxis: Lovenox 40 mg SQ daily Total Time Total Time Spent Total Time Spent (In Minutes): 35 Discharge Plan Discharge Items Patient Disposition: Personal Halfway Reason For Visit: WEAKNESS Discharge Diagnosis: Metastatic cancer (like colorectal cancer) Activity: Resume your previous activity Non-emergency contact: Primary Care Provider Call non-emergency contact if: your symptoms worsen Follow-up/Referrals: Rola Rod [Primary Care Provider] - Diet: Regular Addtl Attending Provider Instructions: Ms. Robles, You were admitted to the hospital with yellowing of the skin called jaundice. Unfortunately, our scan revealed that this is due to cancer. The likely source of cancer is the intestine (called colorectal cancer), but wherever it started, the cancer is now in your liver, spread in the abdomen, and also in the bones. I'm so sorry that this has occurred! We discussed the main decision being whether or not to pursue biopsy and treatment (likely chemotherapy and possibly radiation) vs. move toward hospice and comfort/symptom treatment, and you would like to pursue hospice. Kallie Renee can help link you in with a hospice service. Again, I am sorry that you are in the this situation, but I wish you comfort and peace in the future. Take care! Pending Studies at Discharge: No Stand-Alone Forms: [employer] Smoking Cessation Skilled Items Patient informed of condition?: Yes DNR: Yes Discharge Level of Care: Other Communicable Disease: No Discharge Prognosis: Stable Lines: None Urinary Catheter: No Medications and DC Order Prescriptions: Continued (DME) pen needle, diabetic [Novofine 32] 32 gauge x 1/4" needle See Dose Instructions .ROUTE .MEDSUPPLY Qty: 100 RF: 3 (DME) blood-glucose meter [Easy Touch Glucose Monitor] Misc See Dose Instructions .ROUTE .MEDSUPPLY Qty: 1 RF: 0 (DME) lancets [OneTouch Delica Lancets] 30 gauge misc See Dose Instructions .ROUTE .MEDSUPPLY Qty: 200 RF: 5 (DME) OneTouch Ultra Test Strip See Rx Instructions .Route Qty: 100 RF: 5 simethicone 80 mg tablet,chewable 80 mg PO Q4H PRN (Reason: abdominal distention) 30 Days Qty: 30 RF: 5 loperamide 2 mg capsule 2 mg PO Q6H PRN (Reason: loose stool) Qty: 30 RF: 1 nystatin 100,000 unit/gram powder 1 applic topical BID PRN (Reason: rash) Qty: 60 RF: 3 famotidine 10 mg tablet 10 mg PO QAM RF: 0 cholecalciferol (vitamin D3) 25 mcg (1,000 unit) capsule 1,000 unit PO QAM RF: 0 glucosamine sulfate 2KCl 1,000 mg tablet 1,000 mg PO BID PRN (Reason: Joint Pain) RF: 0 diclofenac sodium 1 % gel 1 g topical QID PRN (Reason: hip pain) RF: 0 One-A-Day Womens Formula 18 mg iron-400 mcg-500 mg tablet 1 tab PO QAM RF: 0 metformin 500 mg tablet 500 mg PO BID Qty: 60 RF: 2 donepezil 10 mg tablet 10 mg PO HS 30 Days Qty: 30 RF: 5 insulin asp prt-insulin aspart [Novolog Mix 70-30FlexPen U-100] 100 unit/mL (70-30) insulin pen See Rx Instructions subcut BID Qty: 15 RF: 3 Changed lisinopril 10 mg tablet 10 mg PO QAM Qty: 5 RF: 0 escitalopram oxalate 20 mg tablet 20 mg PO QAM Qty: 5 RF: 0 memantine [Namenda] 5 mg tablet 5 mg PO BID Qty: 10 RF: 0 Discontinued simvastatin 20 mg tablet 20 mg PO HS RF: 0 Discharge Orders: Discharge Order (Routine); Ordered 10/11/21 Ordered By: Jaylen Pepper Admission Data Admit Date/Time: 10/09/21 14:23 Attending Provider: Jaylen Pepper Admit Provider: Matt Jose Primary Care Provider: Rola Rod Other Providers: Aurelio Mesa ; Jaylen Pepper ; Matt Jose ; Tatyana Salazar ; Natacha Guerra Other Interventions: Discharge Summary Assessment (RN) Last Done: 10/11/21 14:02 Coding Level of Care Code D/C DAY MANAGEMENT >30 MINS Diagnoses Painless jaundice R17 Hypertension I10 Diabetes type 2, uncontrolled E11.65 Dementia F03.90 Depression F32.9 Hyperlipidemia E78.5 GERD (gastroesophageal reflux disease) K21.9 DVT prophylaxis Z29.9
== END 2021-10-11 15:24 | disposition home or self-care (01) | DRG 374 ==
LOC: ED 09:54 → SUATTDRO 14:23 → EDINP 14:23 → 3N 10-10 11:34